=== PATIENT | female | born 1990 | race Caucasian/White ===

== ENCOUNTER 2021-04-01 21:05 | Outpatient (CLI) | payer MEDICAID, SELFPAY ==
[2021-04-01 21:34] VITALS: PULSE 113; O2SAT 94
[2021-04-01 21:35] VITALS: BP 165/91; PULSE 118
[2021-04-01 21:39] VITALS: PULSE 126; O2SAT 97
[2021-04-01 21:44] VITALS: PULSE 120; O2SAT 96
[2021-04-01 22:21] LABS: Actim Prom Positive
[2021-04-01 22:26] VITALS: BP 146/102; PULSE 115
[2021-04-01 22:58] LABS: Basophils % 0.3 %; Eosinophils % 0.1 %; Hematocrit 40.1 % (37.0-47.0); Hemoglobin 13.4 g/dL (11.5-15.3); Lymphocytes % 21.2 %; Mean Corpuscular HGB Conc 33.4 g/dL (30.0-36.0); Mean Corpuscular Hemoglobin 32.3 pg (28.0-34.0); Mean Corpuscular Volume 96.6 fl (81-99); Mean Platelet Volume 11.5 fL (7.4-10.4); Monocytes # 0.7 10^3/uL (0.2-0.9); Monocytes % 7.9 %; Neutrophils # 6.49 10^3/uL (1.8-7.7); Neutrophils % 69.6 %; Nucleated Red Blood Cells % 0 %; Platelet Count 274 10^3/cmm (130-400); Red Blood Count 4.15 10^6/uL (4.1-5.3); Red Cell Distribution Width 12.6 % (12.1-15.1); White Blood Count 9.3 10^3/uL (4.0-10.0)
--- NOTE | 2021-04-01 22:59 | ANES.PREANE2 ---
Pre-Anesthetic Assessment Pre-Anesthetic Assessment: Height/Weight: Pulse BP Pulse Ox 115 H 146/102 96 04/01/21 22:26 04/01/21 22:26 04/01/21 21:44 Preop Diagnosis: breech, in labor Proposed Procedure: Was Beta Scot taken within 24 hours: N/A Was Clonidine taken within 24 hours: N/A Last intake: 1900 thanksgiving dinner Exam: Pre-Anes Outpt Exam: alert, oriented x 3, clear to auscultation bilaterally and regular rate & rhythm Airway: Submandibular: WNL Cervical ROM: WNL MP: 2 History/ROS: No significant history except as noted and No significant complaints Pulmonary: Pulmonary: None reported CV/HEM: CV/HEM: None reported : : None reported Hepatic: Hepatic: None reported GI: GI: None reported Metabolic: Metabolic: Morbid obesity Musc/skel: Musc/skel: None reported Neuropsych: Neuropsych: None reported Anesthetic Plan: ASA status: 3 Anesthesia: Anesthesia Evaluation and Regional (specify below) Risk of > 500 ml blood loss (7ml/kg in children): No Data Anesthesia CBC & Chem 7: 04/01/21 22:40 Other Labs: Laboratory Results - last 48 hr 04/01/21 04/01/21 21:54 22:40 WBC 9.3 RBC 4.15 Hgb 13.4 Hct 40.1 MCV 96.6 MCH 32.3 MCHC 33.4 RDW 12.6 Plt Count 274 MPV 11.5 H Neut % (Auto) 69.6 Lymph % (Auto) 21.2 Harlan % (Auto) 7.9 Eos % (Auto) 0.1 Baso % (Auto) 0.3 Neut # (Auto) 6.49 Lymph # (Auto) 2.0 Harlan # (Auto) 0.7 Eos # (Auto) 0.0 Baso # (Auto) 0.0 Nucleated RBC % (auto) 0 Nucleated RBCs # 0.0 Insulin-like GF I Positive Cardiac Studies: No Data to Display
[2021-04-01] MEDS: citric acid-sodium citrate 30 mL UDC PO (23:09)
[2021-04-01] MEDS: famotidine 20 mg/2 mL INJ IVP (23:09)
[2021-04-01] MEDS: metoclopramide 5 mg/mL SDV 2 mL 10 MG IVP (23:09)
--- NOTE | 2021-04-01 23:13 | P.HP_ITS ---
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 Rupture membranes were confirmed after arriving at the hospital. She was also noted to be in breech position. That was a confirmed with a bedside ultrasound. As result we are going to proceed with a lower transverse section. Review of Systems General: Reports: 10 or more systems reviewed and unremarkable except in HPI and below Const: Reports: fatigue; Denies: fever(s) Eyes: Denies: change in vision Card: Denies: chest pain GI: Reports: heartburn Musc: Reports: back pain Alfredo/Lymph: Denies: easy bruising Medications/Allergies Home Medications Medication Instructions Recorded Confirmed Last Taken Type docusate sodium 100 mg PO BID #14 cap 04/04/21 04/08/21 Unknown Rx hydrocodone-acetaminophen 1 - 2 tab PO Q4H PRN #20 tab 04/04/21 04/08/21 Unknown Rx amoxicillin-pot clavulanate 1 tab PO BID 10 Days #20 tab 04/08/21 Unknown Rx famotidine 20 mg PO BID 04/08/21 04/08/21 Unknown History ibuprofen 800 mg PO TID PRN 04/08/21 04/08/21 Unknown History polyethylene glycol 3350 17 g PO DAILY PRN 04/08/21 04/08/21 Unknown History Allergies Allergy/AdvReac Type Severity Reaction Status Date / Time No Known Allergies Allergy Verified 04/07/21 21:36 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 PFSH: Medical History (Updated 04/08/21 @ 10:14 by Dennis Stein MD) Allergic rhinitis Vitals/I&O/Wt Last Vital Signs Pulse 115 H 04/01/21 22:26 BP 146/102 04/01/21 22:26 Pulse Ox 96 04/01/21 21:44 Physical Exam Const: COMMON NORMALS: patient oriented x3 and alert HENMT: COMMON NORMALS: moist oral mucous membranes HEAD & SCALP: normal to inspection Chest: COMMONS NORMALS: normal inspection of the chest Resp: COMMON NORMALS: clear to auscultation bilaterally AUSCULTATION: clear to auscultation bilaterally Cardio: COMMON NORMALS: regular rate and regular rhythm RATE: regular rate RHYTHM: regular rhythm GI: INSPECTION: Yes normal to inspection and Yes other (Gravid) Extremity: COMMON NORMALS: normal to inspection GENERAL: Yes edema (Trace) Neuro: COMMON NORMALS: patient oriented x3, moves all extremities and no sensory deficits noted SENSORIUM/ORIENTATION: Yes alert Psych: COMMON NORMALS: mental status grossly normal Skin: COMMON NORMALS: no rashes or lesions noted GENERAL SKIN EXAM: no rashes or lesions noted Data : 04/01/21 22:40 A&P Assessment and plan (1) 39 weeks gestation of : Status: Acute (2) Spontaneous rupture of membranes: Status: Acute (3) Breech presentation of fetus: Due to the patient's breech presentation, we will proceed with a lower transverse section. I have discussed with the patient's the risks of the procedure. We discussed the risks of bleeding, infection, and damage to intra-abdominal organs. She understands that due to her large pannus that her risk of complications and infection is increased. Status: Acute Attestations Medical Necessity Statement*: Routine and post care. Coding Level of Care Code Acute Body And Frame Man for [facility] Fwd Exam Comprehensive Diagnoses 39 weeks gestation of Z3A.39 Spontaneous rupture of membranes Breech presentation of fetus O32.1XX0
--- NOTE | 2021-04-02 01:19 | PM.OP ---
Operative Report Date of procedure: April 02, 2021 Pre-op Diagnosis: breech, in labor Post-op diagnosis: same Procedure Done: Lower transverse section Specimens removed/disposition: 1. Male with a weight of 8 pounds 3 ounces and Apgars of 7 and 9 2. Placenta with a three-vessel cord delivered intact Pathology: none sent Surgeon: Dennis Stein Anesthesia: Other (Spinal) Estimated blood loss (mL): 800 Complications: None Condition: stable Disposition: floor (OB) Brief History: Please see history and physical Procedure: The patient was brought back to the operating room where she was prepped and draped in usual sterile fashion. Anesthesia was found to be adequate. A lower transverse skin incision was then made with a #10 blade. I then dissected down to the underlying subcutaneous tissue until arriving at the prerectal fascia. The fascia was then nicked with the scalpel bilaterally. The fascial incisions were then carried laterally with Bah scissors. Attention was then turned to the superior aspect of the incision which was grasped with kochers and tented up away from the underlying rectus abdominis muscles. The muscles were then dissected away from the fascia manually, and later with Bah scissors. Attention was then turned to the inferior aspect of the incision, and the fascia was dissected away from the underlying muscle in similar fashion. The rectus abdominis muscles were then spread manually. The peritoneum was entered manually. Excellent visualization of the uterus was noted. A lower transverse uterine incision was then made with a #10 blade. Upon arriving at the intrauterine cavity, the uterine incision was then extended manually. The was noted to be in vertex position. The baby was delivered without difficulty. After delivery of the head, the mouth and nose were suctioned at the site of the incision. There was no meconium. There was no nuchal cord. The remainder of the body was then delivered and placed on the abdomen. The cord was cut and clamped. The baby was then handed to the waiting nurse. The placenta was removed intact. The uterus was externalized. The intrauterine cavity was cleansed of any remaining debris. The uterine incision was reapproximated in 2 layers. The first layer was performed with 0 Vicryl in a running locked stitch. The second layer was an imbricating stitch also using 0 Vicryl. The uterus was replaced into the abdomen. The peritoneum was then irrigated with warm saline. I reexamined the uterine incision and found it to be hemostatic. The fascia was then reapproximated using 0 Vicryl in running stitch. The subcutaneous tissue was then reapproximated using 0 Vicryl in a running stitch. The skin was reapproximated with a running subcuticular stitch with 4-0 Vicryl on a Jordy needle. Steri-Strips were placed. A sterile dressing was placed. All counts were correct x2. Both the mother and baby were in stable condition. Associated Problem List Diagnoses (1) Breech presentation of fetus: (2) Spontaneous rupture of membranes: (3) 39 weeks gestation of :
== END 2021-04-01 23:59 | disposition home or self-care (01) ==
LOC: OPOB 21:15 → OBGYN 21:15
PROVIDERS: Visit Provider Family Medicine
DX: O32.1XX0 Maternal care for breech presentation, not applicable or unspecified (principal); Z3A.39 39 weeks gestation of pregnancy
CPT/HCPCS: 12345; 84112; 85025; J1200; J2274; J2405; J2765; J3010; J3490

== ENCOUNTER 2021-04-01 22:00 | Inpatient (IN) | payer MEDICAID, OTHER, SELFPAY ==
[2021-04-01 21:05] VITALS: BMI 50.3
[2021-04-02] VITALS (19 sets, daily range): BP systolic 111–156; BP diastolic 70–98; PULSE 96–119; RESP 15–18; TEMP 36.6–37.4; O2SAT 94–98
[2021-04-02] MEDS: dextrose 5%-lactated ringers 1,000 ML 125 ML IV (05:28)
[2021-04-02] MEDS: ketorolac 30 mg/mL INJ IVP (07:01)
[2021-04-02] MEDS: diphenhydrAMINE 50 mg/mL SDV 1mL 25 MG IVP (07:01)
--- NOTE | 2021-04-02 10:09 | ANE.PACU2 ---
Inpatient post-anesthesia follow up: Airway intact: Yes Vital signs: Temperature 99.3 F Pulse Rate 107 Respiratory Rate 16 Blood Pressure 118/78 Pulse Oximetry 95 Oxygen Delivery Me thod Room Air Oxygen Flow Rate Fraction of Inspir ed Oxygen Hydration adequate: Yes Nausea and vomiting: No Pain level: 2 Mental status: Baseline
[2021-04-02] MEDS: prenatal vitamin Capsule 1 CAP PO (10:13)
[2021-04-02] MEDS: docusate sodium 100 mg Capsule PO ×2 (10:13→17:59)
[2021-04-02] MEDS: lanolin oint 7 gm 1 APPLIC TOPICAL (10:17)
[2021-04-02 14:13] LABS: Hematocrit 32.6 % (37.0-47.0); Hemoglobin 11.1 g/dL (11.5-15.3); Mean Corpuscular Hemoglobin 32.7 pg (28.0-34.0); Mean Corpuscular Volume 96.2 fl (81-99); Mean Platelet Volume 11.9 fL (7.4-10.4); Platelet Count 221 10^3/cmm (130-400); Red Blood Count 3.39 10^6/uL (4.1-5.3); Red Cell Distribution Width 12.9 % (12.1-15.1); White Blood Count 11.9 10^3/uL (4.0-10.0)
--- NOTE | 2021-04-02 14:29 | PC.NURSE ---
1400 PT UP TO BATHROOM AFTER CHEATHAM REMOVED, 800 URINE OBTAINED, PERICARE DONE AND INSTRUCTED HER ON IT, CLEANED HER UP REALLY GOOD AND THEN SHE WALKED TO FULL LAPS AROUND FLOOR. DID GREAT. PT THEN BACK TO HER ROOM AND IS SITTING UP IN CHAIR. TOLD HER THAT I WOULD LIKE TO SEE HER UP AND WALKING EVERY HOUR AT LEAST ONE LAP. TOLD HER TO CALL US IF SHE NEEDED ASSISTANCE.
[2021-04-02] MEDS: ibuprofen 800 mg tablet PO ×2 (15:31→20:33)
[2021-04-02] MEDS: hyDROXYzine 25 mg Capsule 50 MG PO (17:59)
[2021-04-02] MEDS: ferrous sulfate EC 325 mg Tablet PO (20:33)
[2021-04-03 03:48] VITALS: BP 122/68; PULSE 115; RESP 17; TEMP 37.2; O2SAT 97
--- NOTE | 2021-04-03 07:06 | PM.OBGYPN ---
COMMERCIAL REAL ESTATE MANAGER Subjective Subjective: Interval history: The patient is doing well The patient is doing well. Her bleeding has been within normal limits. Her pain is well controlled. She is having some difficulty breast-feeding, but the claims support specialist will be assisting her with that today. Vitals/I&O/Wt Last Vital Signs Temp 99.0 F 04/03/21 03:48 Pulse 115 H 04/03/21 03:48 Resp 17 04/03/21 03:48 BP 122/68 04/03/21 03:48 Pulse Ox 97 04/03/21 03:48 04/02/21 04/03/21 04/03/21 22:59 06:59 14:59 Intake Total 600 / 3000 Output Total 1700 / 3600 Balance -1100 / -600 Weight last 48 hrs Weight 284 lb Physical Exam Narrative: EXAM NARRATIVE: She is in no acute distress Lungs are clear auscultation bilaterally Her heart has a regular rate and rhythm Her fundus is below the umbilicus and firm Her dressing is clean, dry and intact Her extremities have trace edema Urinary Catheter Management^: Juan Latex: Cath Placed During This Visit: yes, but has since been removed by the nurse Urinary Catheter Date of Insertion: 04/02/21 Urinary Catheter Time of Insertion: 00:00 Date Urinary Catheter Removed: 04/02/21 Time Urinary Catheter Discontinued: 13:40 Data : 04/02/21 13:35 A&P Assessment and plan (1) Status post : The patient has been doing well. Her pain is well controlled. She has been ambulating. I am hopeful that she will be discharged home tomorrow if all goes well. Status: Acute Attestations Medical Necessity Statement*: Routine post care. Coding Level of Care Code Acute Preforms Laminator for Chg Fwd Diagnoses Status post Z98.891
[2021-04-03] MEDS: prenatal vitamin Capsule 1 CAP PO (07:34)
[2021-04-03] MEDS: acetaminophen 325 mg Tablet 650 MG PO (07:37)
[2021-04-03] MEDS: ferrous sulfate EC 325 mg Tablet PO (07:37)
[2021-04-03 08:35] VITALS: BP 110/70; PULSE 120; RESP 18; O2SAT 98
--- NOTE | 2021-04-03 08:35 | PC.NURSE ---
pt just got done ambulating in hallway
[2021-04-03] MEDS: docusate sodium 100 mg Capsule PO ×2 (12:19→18:08)
[2021-04-03 16:00] VITALS: BP 115/68; PULSE 111; TEMP 37.1
[2021-04-03 22:50] VITALS: BP 131/85; PULSE 104; RESP 16; TEMP 36.7; O2SAT 96
[2021-04-03] MEDS: ibuprofen 800 mg tablet PO (22:50)
[2021-04-04 04:10] VITALS: BP 126/87; PULSE 88; O2SAT 95
--- NOTE | 2021-04-04 07:31 | PM.OBGYDC ---
Discharge Providers RENEWABLE ENERGY TRADER Date of Admission: 04/01/21 22:00 Date of Discharge: 04/04/21 Attending Provider at Admission: Dennis Stein MD Attending Provider at Discharge: Dennis Stein MD Diagnoses at Discharge Discharge Diagnosis (1) Status post : Status: Acute Reason for Visit Reason for Visit: C- section Hospital Course Hospital Course The patient is a 30-year-old 1 female at 39 weeks estimated gestational age who presented to the hospital due to presumed rupture of membranes. She was found to have grossly ruptured membranes. She was also noted to have a footling breech presentation of the . A section was performed. Her postoperative course was unremarkable. Her bleeding was within normal limits. Her pain level is remarkably low. There were no concerns. Initially, she attempted to breast-feed. She has since decided to bottlefeed. Information Peripartum Data: Delivery Method: Physical Exam Narrative: EXAM NARRATIVE: She is in no acute distress Lungs are clear auscultation bilaterally Her heart has a regular rate and rhythm Her fundus is below the umbilicus and firm Her dressing is clean, dry and intact Her extremities have trace edema Urinary Catheter Management^: Juan Latex: Cath Placed During This Visit: yes, but has since been removed by the nurse Reason for Continuing Indwelling Catheter: Perioperative Use in Selected Surgeries Urinary Catheter Date of Insertion: 04/02/21 Urinary Catheter Time of Insertion: 00:00 Date Urinary Catheter Removed: 04/02/21 Time Urinary Catheter Discontinued: 13:40 Discharge Data Vitals: Last Vital Signs Temp 98.0 F 04/03/21 22:50 Pulse 88 04/04/21 04:10 Resp 16 04/03/21 22:50 BP 126/87 04/04/21 04:10 Pulse Ox 95 04/04/21 04:10 Discharge Plan Discharge Patient Disposition: Home Condition: Stable Prescriptions: New ibuprofen 800 mg Tablet 800 mg PO TID Qty: 45 RF: 0 hydrocodone-acetaminophen 5-325 mg Tablet 1 - 2 tab PO Q4H PRN (Reason: Moderate To Severe Pain) Qty: 20 RF: 0 docusate sodium 100 mg Capsule 100 mg PO BID Qty: 14 RF: 0 Discharge Orders: Discharge Order (Routine); Ordered 04/04/21 Ordered By: Dennis Stein Referrals: Dennis Stein MD [Physician] - 04/07/21 Discharge Diet: Usual diet Discharge Activity: Limit activity as instructed Patient Instructions: Opioid Safety Discharge Attestations RENEWABLE ENERGY TRADER Time Spent in Discharge Care*: less than 30 min Coding Level of Care Code Acute Quantitative Manager for Chg Fwd Diagnoses Status post Z98.891
[2021-04-04 10:00] VITALS: BP 125/89; PULSE 130; RESP 18; TEMP 36.5; O2SAT 96
--- NOTE | 2021-04-04 12:23 | PC.NURSE ---
Pt reports her pulse is elevated because she has been up in the room packing for about 30 minutes.
== END 2021-04-04 10:10 | disposition home or self-care (01) | DRG 788 ==
PROVIDERS: Admitting Provider Family Medicine; Visit Provider Family Medicine
PROC: (CPT 59514; principal; 2021-04-01 23:20)
DX: O32.8XX0 Maternal care for other malpresentation of fetus, not applicable or unspecified (principal); Z3A.39 39 weeks gestation of pregnancy; Z37.0 Single live birth
CPT/HCPCS: 12345; 36415; 51702; 59025; 59409; 85027; 99211; J1200; J1885

== ENCOUNTER 2021-04-07 18:11 | Observation (INO) | payer MEDICAID, SELFPAY ==
[2021-04-07 18:15] VITALS: BP 138/102; PULSE 135; RESP 16; TEMP 37.6; O2SAT 97; BMI 48.6
--- NOTE | 2021-04-07 19:57 | W.ED.FEVER ---
Documented by User: LUZ Armstrong 04/07/21 21:14 HPI - Fever General: Chief Complaint: Fever Stated Complaint: Fever, Time Seen by Provider: 04/07/21 19:31 History of Present Illness: HPI Narrative: Patient states that she had chills this afternoon. She did see her primary care provider earlier today and was placed on Lasix due to edema. Patient says she has had no problems with her incision and sent had any vaginal drainage but is having urinary frequency now especially since being placed on Lasix. MD elicited complaint: fever Onset (ago): hour(s) Context: recent procedure Exacerbating factors: nothing Relieving factors: nothing Associated symptoms: Reports chills; Deny abdominal pain, chest pain, extremity pain, headache(s), nasal congestion, nausea or vomiting Review of Systems Narrative: Recent evaluated by OB today. Placed on Lasix also today due to edema. Const: Reports: chills Eyes: Denies: change in vision or blurry vision ENMT: Denies: throat pain or nasal congestion Card: Denies: chest pain or dyspnea on exertion Resp: Denies: dyspnea, productive cough or non-productive cough GI: Denies: abdominal pain, nausea or vomiting Musc: Denies: extremity pain Skin/Breast: Reports: rash Neuro: Denies: headache(s) Psych: Denies: anxiety or depression Alfredo/Lymph: Denies: easy bruising PFS ED PFSH: Medical History (Updated 04/08/21 @ 10:14 by Dennsi Stein MD) Allergic rhinitis Physical Exam Const: COMMON NORMALS: no acute distress, average body habitus and patient oriented x3 HENMT: COMMON NORMALS: normocephalic HEAD & SCALP: normal to inspection and normocephalic FACE & SINUS: normal facial exam Eye: COMMON NORMALS: conjunctivae normal GENERAL EYE: appearance normal, both eyes and all related structures CONJUNCTIVA: Yes conjunctivae normal Neck/C-Spine: COMMON NORMALS: no JVD Chest: COMMONS NORMALS: normal inspection of the chest Resp: COMMON NORMALS: normal respiratory effort and clear to auscultation bilaterally AUSCULTATION: clear to auscultation bilaterally Cardio: COMMON NORMALS: no JVD and regular rhythm RATE: tachycardic RHYTHM: regular rhythm OTHER: 2+ pitting edema up to area below the knee bilaterally. GI: COMMON NORMALS: Normal to inspection, nondistended, normoactive bowel sounds present Extremity: COMMON NORMALS: normal to inspection and full ROM Neuro: COMMON NORMALS: patient oriented x3 Skin: OTHER: Surgical incision clear with no drainage no redness Steri-Strips in place mild tenderness all around the site consistent with postsurgical tenderness. On reexamination about an hour and half in his visit notes that patient does have redness and warmth extending up toward the bellybutton across the abdomen. Incision still without drainage or any significant redness. Course Vital Signs: Vital signs: Vital Signs Temperature 98.7 F 04/08/21 13:34 Pulse Rate 100 04/08/21 13:34 Respiratory Rate 18 04/08/21 13:34 Blood Pressure 121/88 04/08/21 13:34 Pulse Oximetry 98 04/08/21 13:34 MDM - Fever MDM Narrative: Medical decision making narrative: Patient presented here with chills and fever at home this afternoon. Patient evaluated by OB today and was placed on Lasix due to edema. Presented Dr. Nelson with patient's labs presenting signs symptoms and evaluation. Reevaluated patient about hour and half visit no she had redness extending up toward the bellybutton across abdomen very warm to the touch. Patient still is tachycardic did receive 1 g Rocephin IV antibiotics and was also ordered for clindamycin. Care of patient turned over to Dr. Nelson Lab Data: Labs: Lab Results 04/07/21 04/07/21 04/07/21 19:45 19:45 19:45 WBC 20.1 10^3/uL H 10 ^3/uL (4.0-10.0) RBC 3.76 10^6/uL L 10 ^6/uL (4.1-5.3) Hgb 12.2 g/dL g/dL (11.5-15.3) Hct 37.4 % % (37.0-47.0) MCV 99.5 fl H fl (81-99) MCH 32.4 pg pg (28.0-34.0) MCHC 32.6 g/dL g/dL (30.0-36.0) RDW 12.6 % % (12.1-15.1) Plt Count 385 10^3/cmm 10^3 /cmm (130-400) MPV 11.1 fL H fL (7.4-10.4) Neut % (Auto) 86.8 % % Lymph % (Auto) 7.8 % % Blanco % (Auto) 3.5 % % Eos % (Auto) 0.1 % % Baso % (Auto) 0.4 % % Neut # (Auto) 17.44 10^3/uL H 1 0^3/uL (1.8-7.7) Lymph # (Auto) 1.6 10^3/uL 10^3/ uL (0.8-4.8) Blanco # (Auto) 0.7 10^3/uL 10^3/ uL (0.2-0.9) Eos # (Auto) 0.0 10^3/uL 10^3/ uL (0.0-0.8) Baso # (Auto) 0.1 10^3/uL 10^3/ uL (0.0-0.1) Nucleated RBC % (a uto) 0.2 % % Nucleated RBCs # 0.0 /100WBC /100W BC Sodium 138 mmol/L mmol/L (136-145) Potassium 3.3 mmol/L L mmol /L (3.5-5.1) Chloride 100 mmol/L mmol/L (98-107) Carbon Dioxide 24 mmol/L mmol/L (22-29) Anion Gap 17.3 (5-19) BUN 6 mg/dL mg/dL (6-20) Creatinine 0.6 mg/dL mg/dL (0.5-0.9) GFR Calculation 118.2 mL/min mL/m in (90-130) Glucose 101 mg/dL mg/dL (65-115) Calculated Osmolal ity 284 mOsm/kg L mOs m/kg (285-295) Lactate 1.2 mmol/L mmol/L (0.5-2.2) Calcium 9.0 mg/dL mg/dL (8.5-10.5) Total Bilirubin 0.2 mg/dL mg/dL (0.15-1.2) AST 16 U/L U/L (0-32) ALT 101 U/L H U/L (0-33) Alkaline Phosphata se 105 IU/L IU/L (35-105) Total Protein 6.4 g/dL L g/dL (6.6-8.7) Albumin 2.9 g/dL L g/dL (3.5-5.2) Globulin 3.5 g/dL g/dL (1.3-4.6) Urine Color Urine Appearance Urine pH Ur Specific Gravit y Urine Protein Urine Glucose (UA) Urine Ketones Urine Blood Urine Nitrate Urine Bilirubin Urine Urobilinogen Ur Leukocyte Kaylen ase Urine RBC Urine WBC Ur Squamous Epith Cells Amorphous Sediment Urine Bacteria 04/07/21 19:45 WBC RBC Hgb Hct MCV MCH MCHC RDW Plt Count MPV Neut % (Auto) Lymph % (Auto) Blanco % (Auto) Eos % (Auto) Baso % (Auto) Neut # (Auto) Lymph # (Auto) Blanco # (Auto) Eos # (Auto) Baso # (Auto) Nucleated RBC % (a uto) Nucleated RBCs # Sodium Potassium Chloride Carbon Dioxide Anion Gap BUN Creatinine GFR Calculation Glucose Calculated Osmolal ity Lactate Calcium Total Bilirubin AST ALT Alkaline Phosphata se Total Protein Albumin Globulin Urine Color Yellow (Yellow) Urine Appearance Sl hazy (CLEAR) Urine pH 8 H (5-7) Ur Specific Gravit y 1.010 (1.005-1.030) Urine Protein Neg (Negative) Urine Glucose (UA) Norm (Normal) Urine Ketones Negative (Negative) Urine Blood 3+ H (Negative) Urine Nitrate Negative (Negative) Urine Bilirubin Neg (Negative) Urine Urobilinogen Norm mg/dL mg/dL (Negative) Ur Leukocyte Kaylen ase 2+ H (Negative) Urine RBC 0-4 /hpf H /hpf (0-2) Urine WBC 15-25 /hpf H /hpf (0-5) Ur Squamous Epith Cells 10-15 /hpf H /hpf (0-5) Amorphous Sediment Not Reportable Urine Bacteria 1+ /hpf H /hpf (NONE) Discharge Plan Discharge Patient Disposition: Admitted As Inpatient Admit Provider: Dennis Stein Condition: Stable Discharge Diet: Usual diet Discharge Activity: Limit activity as instructed Coding Level of Care Code ED Information Security Director for g Fwd Exam Comprehensive Documented by User: Federico Nelson MD 04/11/21 21:30 HPI - Fever General: Chief Complaint: Fever Stated Complaint: Fever, Time Seen by Provider: 04/07/21 19:31 [facility] ED PFSH: Medical History (Updated 04/08/21 @ 10:14 by Dennis Stein MD) Allergic rhinitis Course Vital Signs: Vital signs: Vital Signs Temperature 98.7 F 04/08/21 13:34 Pulse Rate 100 04/08/21 13:34 Respiratory Rate 18 04/08/21 13:34 Blood Pressure 121/88 04/08/21 13:34 Pulse Oximetry 98 04/08/21 13:34 MDM - Fever MDM Narrative: Medical decision making narrative: Patient care discussed with Khai Rubio PIPE INSTALLER. I personally reevaluated patient and reperformed orozco portions of E/M and agree as documented above. I reviewed labs. I discussed case with the patient's performing surgeon and patient requires inpatient treatment given leukocytosis, initial tachycardia, and physical exam findings. Antibiotics ordered. At request of admitting physician CT scan ordered and pending at time of admission. Federico Nelson MD Emergency Medicine Lab Data: Labs: Lab Results 04/07/21 04/07/21 04/07/21 19:45 19:45 19:45 WBC 20.1 10^3/uL H 10 ^3/uL (4.0-10.0) RBC 3.76 10^6/uL L 10 ^6/uL (4.1-5.3) Hgb 12.2 g/dL g/dL (11.5-15.3) Hct 37.4 % % (37.0-47.0) MCV 99.5 fl H fl (81-99) MCH 32.4 pg pg (28.0-34.0) MCHC 32.6 g/dL g/dL (30.0-36.0) RDW 12.6 % % (12.1-15.1) Plt Count 385 10^3/cmm 10^3 /cmm (130-400) MPV 11.1 fL H fL (7.4-10.4) Neut % (Auto) 86.8 % % Lymph % (Auto) 7.8 % % Blanco % (Auto) 3.5 % % Eos % (Auto) 0.1 % % Baso % (Auto) 0.4 % % Neut # (Auto) 17.44 10^3/uL H 1 0^3/uL (1.8-7.7) Lymph # (Auto) 1.6 10^3/uL 10^3/ uL (0.8-4.8) Blanco # (Auto) 0.7 10^3/uL 10^3/ uL (0.2-0.9) Eos # (Auto) 0.0 10^3/uL 10^3/ uL (0.0-0.8) Baso # (Auto) 0.1 10^3/uL 10^3/ uL (0.0-0.1) Nucleated RBC % (a uto) 0.2 % % Nucleated RBCs # 0.0 /100WBC /100W BC Sodium 138 mmol/L mmol/L (136-145) Potassium 3.3 mmol/L L mmol /L (3.5-5.1) Chloride 100 mmol/L mmol/L (98-107) Carbon Dioxide 24 mmol/L mmol/L (22-29) Anion Gap 17.3 (5-19) BUN 6 mg/dL mg/dL (6-20) Creatinine 0.6 mg/dL mg/dL (0.5-0.9) GFR Calculation 118.2 mL/min mL/m in (90-130) Glucose 101 mg/dL mg/dL (65-115) Calculated Osmolal ity 284 mOsm/kg L mOs m/kg (285-295) Lactate 1.2 mmol/L mmol/L (0.5-2.2) Calcium 9.0 mg/dL mg/dL (8.5-10.5) Total Bilirubin 0.2 mg/dL mg/dL (0.15-1.2) AST 16 U/L U/L (0-32) ALT 101 U/L H U/L (0-33) Alkaline Phosphata se 105 IU/L IU/L (35-105) Total Protein 6.4 g/dL L g/dL (6.6-8.7) Albumin 2.9 g/dL L g/dL (3.5-5.2) Globulin 3.5 g/dL g/dL (1.3-4.6) Urine Color Urine Appearance Urine pH Ur Specific Gravit y Urine Protein Urine Glucose (UA) Urine Ketones Urine Blood Urine Nitrate Urine Bilirubin Urine Urobilinogen Ur Leukocyte Kaylen ase Urine RBC Urine WBC Ur Squamous Epith Cells Amorphous Sediment Urine Bacteria 04/07/21 19:45 WBC RBC Hgb Hct MCV MCH MCHC RDW Plt Count MPV Neut % (Auto) Lymph % (Auto) Blanco % (Auto) Eos % (Auto) Baso % (Auto) Neut # (Auto) Lymph # (Auto) Blanco # (Auto) Eos # (Auto) Baso # (Auto) Nucleated RBC % (a uto) Nucleated RBCs # Sodium Potassium Chloride Carbon Dioxide Anion Gap BUN Creatinine GFR Calculation Glucose Calculated Osmolal ity Lactate Calcium Total Bilirubin AST ALT Alkaline Phosphata se Total Protein Albumin Globulin Urine Color Yellow (Yellow) Urine Appearance Sl hazy (CLEAR) Urine pH 8 H (5-7) Ur Specific Gravit y 1.010 (1.005-1.030) Urine Protein Neg (Negative) Urine Glucose (UA) Norm (Normal) Urine Ketones Negative (Negative) Urine Blood 3+ H (Negative) Urine Nitrate Negative (Negative) Urine Bilirubin Neg (Negative) Urine Urobilinogen Norm mg/dL mg/dL (Negative) Ur Leukocyte Kaylen ase 2+ H (Negative) Urine RBC 0-4 /hpf H /hpf (0-2) Urine WBC 15-25 /hpf H /hpf (0-5) Ur Squamous Epith Cells 10-15 /hpf H /hpf (0-5) Amorphous Sediment Not Reportable Urine Bacteria 1+ /hpf H /hpf (NONE) Discharge Plan Discharge Patient Disposition: Admitted As Inpatient Admit Provider: Dennis Stein Condition: Stable Discharge Diet: Usual diet Discharge Activity: Limit activity as instructed Coding Level of Care Code ED Information Security Director for [facility] Fwd Exam Comprehensive
[2021-04-07 20:01] LABS: Basophils # 0.1 10^3/uL (0.0-0.1); Basophils % 0.4 %; Eosinophils % 0.1 %; Hematocrit 37.4 % (37.0-47.0); Hemoglobin 12.2 g/dL (11.5-15.3); Lymphocytes # 1.6 10^3/uL (0.8-4.8); Lymphocytes % 7.8 %; Mean Corpuscular HGB Conc 32.6 g/dL (30.0-36.0); Mean Corpuscular Hemoglobin 32.4 pg (28.0-34.0); Mean Corpuscular Volume 99.5 fl (81-99); Mean Platelet Volume 11.1 fL (7.4-10.4); Monocytes # 0.7 10^3/uL (0.2-0.9); Monocytes % 3.5 %; Neutrophils # 17.44 10^3/uL (1.8-7.7); Neutrophils % 86.8 %; Nucleated Red Blood Cells % 0.2 %; Platelet Count 385 10^3/cmm (130-400); Red Blood Count 3.76 10^6/uL (4.1-5.3); Red Cell Distribution Width 12.6 % (12.1-15.1); White Blood Count 20.1 10^3/uL (4.0-10.0)
[2021-04-07] MEDS: sodium chloride 0.9% 1,000 ML 75 ML IV (20:13)
[2021-04-07 20:29] LABS: Alanine Aminotransferase 101 U/L (0-33); Albumin Level 2.9 g/dL (3.5-5.2); Alkaline Phosphatase 105 IU/L (35-105); Anion Gap 17.3 (5-19); Aspartate Amino Transferase 16 U/L (0-32); Blood Urea Nitrogen 6 mg/dL (6-20); Carbon Dioxide 24 mmol/L (22-29); Chloride 100 mmol/L (98-107); Globulin 3.5 g/dL (1.3-4.6); Glomerular Filtration Rate 118.2 mL/min (90-130); Glucose 101 mg/dL (65-115); Osmolality Calculated 284 mOsm/kg (285-295); Potassium 3.3 mmol/L (3.5-5.1); Sodium 138 mmol/L (136-145); Total Bilirubin 0.2 mg/dL (0.15-1.2); Total Protein 6.4 g/dL (6.6-8.7); Urine Appearance SL Hazy (CLEAR); Urine Color Yellow (Yellow)
[2021-04-07 20:30] LABS: Add Urine Culture? No; Add Urine Microscopic? YES; Bacteria Urine 1+ /hpf; Bilirubin Urine Neg (Negative); Blood Urine 3+ (Negative); Glucose Urine UA Norm (Normal); Ketones Urine Negative (Negative); Lactate (Lactic Acid level) 1.2 mmol/L (0.5-2.2); Leukocyte Esterase Urine 2+ (Negative); Nitrate Urine Negative (Negative); Protein Urine Neg (Negative); RBC Urine 0-4 /hpf (0-2); Urobilinogen Urine Norm (Negative); WBC Urine 15-25 /hpf (0-5); pH Urine 8 (5-7)
[2021-04-07] MEDS: cefTRIAXone 1,000 MG in sodium chloride 0.9% (plus) 50 ML 100 MG IV (20:42)
[2021-04-07] MEDS: potassium chloride ER 20 mEq Tablet PO (20:42)
[2021-04-07 20:55] VITALS: BP 137/81; PULSE 120; RESP 18; TEMP 37.4; O2SAT 95
[2021-04-07] MEDS: clindamycin 600 MG/50 ML PREMIX 100 MG IV (21:35)
[2021-04-07 21:41] VITALS: BP 136/88; PULSE 86; RESP 18; TEMP 38; O2SAT 96
--- NOTE | 2021-04-07 21:43 | CTR_ITS ---
PROCEDURE INFORMATION: Exam: CT Abdomen And Pelvis With Contrast Exam date and time: 04/07/2021 9:43 PM Age: 30 years old Clinical indication: Other: Cellulitis. ; Prior surgery; Surgery date: 3-7 days post-operative; Surgery type: Csection on 04/02/2021. ; Patient HX: C/O pain with cellulitis to lower abdominal pannus. ; Additional info: Post operative sirs, abdominal wall cellulitis, ? deep infect TECHNIQUE: Imaging protocol: Computed tomography of the abdomen and pelvis with contrast. Radiation optimization: All CT scans at this facility use at least one of these dose optimization techniques: automated exposure control; mA and/or kV adjustment per patient size (includes targeted exams where dose is matched to clinical indication); or iterative reconstruction. Contrast material: OMNI 300; Contrast volume: 95 ml; Contrast route: INTRAVENOUS (IV); COMPARISON: US OB >= 14 weeks fetus [id number] 11/09/2020 4:15 PM RADIATION DOSE METRICS: Total DLP (mGy-cm): 1875.21 FINDINGS: Liver: A couple subcentimeter low-attenuation lesions adjacent to the intrahepatic IVC, likely small cysts or hemangiomas. Gallbladder and bile ducts: Normal. No calcified stones. No ductal dilation. Pancreas: Normal. No ductal dilation. Spleen: Normal. No splenomegaly. Adrenal glands: Normal. No mass. Kidneys and ureters: 2 cm cyst along the posteromedial cortex of the upper pole of the right kidney. No hydronephrosis. Stomach and bowel: Unremarkable. No obstruction. No mucosal thickening. Appendix: No evidence of appendicitis. Intraperitoneal space: Unremarkable. No free air. No significant fluid collection. Vasculature: Unremarkable. No abdominal aortic aneurysm. Lymph nodes: Unremarkable. No enlarged lymph nodes. Urinary bladder: Unremarkable as visualized. Reproductive: Enlarged appearance of the uterus, likely secondary to recent and . Bones/joints: No acute fracture. Soft tissues: Skin thickening and extensive subcutaneous emphysema centered within the lower abdominal wall. No definable fluid collection/abscess or subcutaneous emphysema. CT/CT abdomen pelvis w con* [id number] IMPRESSION: Cellulitis centered within the lower abdominal wall. No definable abscess or subcutaneous emphysema. No intra-abdominal extension. COMMENTS: Consistent with the [employer]'s Incidental Findings Committee white paper (J Am Kathleen Radiol 2018): Any incidental renal lesion less than 1 cm or classified as too small to characterize, or any incidental cystic renal lesion characterized as simple-appearing, is likely benign. No follow-up imaging is recommended for these lesions per consensus recommendations based on imaging criteria. Radiation Dose CTDIVOL = (mGy): DLP = 1875.21 (mGy-cm)
[2021-04-07] MEDS: iohexol 300 mg/mL 100 mL Btl IV (21:59)
[2021-04-07 22:41] VITALS: BMI 48.6
[2021-04-07] MEDS: acetaminophen 500 mg Tablet 1000 MG PO (23:53)
[2021-04-08] VITALS: BP 133/87; PULSE 139; RESP 19; TEMP 38.2; O2SAT 97
[2021-04-08 04:00] VITALS: BP 134/66; PULSE 94; RESP 19; TEMP 37.1; O2SAT 97
[2021-04-08] MEDS: clindamycin 600 MG/50 ML PREMIX 100 MG IV (04:21)
[2021-04-08 07:31] LABS: Basophils # 0.1 10^3/uL (0.0-0.1); Basophils % 0.4 %; Eosinophils % 0.2 %; Hematocrit 33.5 % (37.0-47.0); Hemoglobin 10.6 g/dL (11.5-15.3); Lymphocytes # 1.4 10^3/uL (0.8-4.8); Mean Corpuscular HGB Conc 31.6 g/dL (30.0-36.0); Mean Corpuscular Hemoglobin 32.6 pg (28.0-34.0); Mean Corpuscular Volume 103.1 fl (81-99); Mean Platelet Volume 11.1 fL (7.4-10.4); Monocytes # 0.7 10^3/uL (0.2-0.9); Monocytes % 5.7 %; Neutrophils # 9.25 10^3/uL (1.8-7.7); Neutrophils % 80.5 %; Nucleated Red Blood Cells % 0 %; Platelet Count 304 10^3/cmm (130-400); Red Blood Count 3.25 10^6/uL (4.1-5.3); Red Cell Distribution Width 12.8 % (12.1-15.1); White Blood Count 11.5 10^3/uL (4.0-10.0)
[2021-04-08 08:00] VITALS: BP 121/88; PULSE 100; RESP 18; TEMP 37.1; O2SAT 98
[2021-04-08] MEDS: sodium chloride 0.9% 1,000 ML 75 ML IV (08:53)
--- NOTE | 2021-04-08 09:54 | PM.SDS ---
Short Stay Summary Providers Date of Admit/Discharge: 04/08/21 Attending Provider: Dennis Stein MD Primary Care Provider: Dennis Stein MD Chief Complaint: Fever, HPI History of Present Illness Kriss Patel is a 30 year old female who presented to the emergency room with a complaint of fever and not feeling well. She had had a on the due to spontaneous rupture of membranes and a breech presentation of her infant. The was unremarkable. Her hospital stay was also unremarkable. She had had no complications and no concerns up to yesterday when she saw me in my office. At that time she stated that she felt amazing and felt like she could run a marathon. Her only concern was edema in her lower extremities and in her pannus. She was given Lasix. Later on in the day, she began feeling poorly, and spiked a fever. As a result she went to the ER where she once again was noted to have a fever of 100.4. Her heart rate was also elevated with a white blood count of 20.1 with 86% neutrophils. There was no obvious infection. And her abdominal exam was unremarkable. But given her white blood count, her fever, her tachycardia, and her sudden shift and how she was feeling, we elected to put her in the hospital to observe her for possible infection. Review of Systems General: Reports: 10 or more systems reviewed and unremarkable except in HPI and below Const: Reports: fever(s) and chills; Denies: change in appetite Eyes: Denies: change in vision Card: Reports: edema (2+ pitting edema in lower extremities and in pannus.); Denies: chest pain GI: Reports: other (Passing gas); Denies: nausea or constipation Skin/Breast: Reports: other (Incision has been clean dry and intact. She has had no drainage.) Alfredo/Lymph: Denies: easy bruising Home Meds/Allergies Home Medications and Allergies Home Medications Medication Instructions Recorded Confirmed Type famotidine 20 mg PO BID 04/08/21 04/08/21 History ibuprofen 800 mg PO TID PRN 04/08/21 04/08/21 History polyethylene glycol 3350 17 g PO DAILY PRN 04/08/21 04/08/21 History Allergies Allergy/AdvReac Type Severity Reaction Status Date / Time No Known Allergies Allergy Verified 04/07/21 21:36 PFSH Acute PFSH: Medical History (Updated 04/08/21 @ 10:14 by Dennis Stein MD) Allergic rhinitis Vitals/I&O/Wt Last Vital Signs Temp 98.7 F 04/08/21 08:00 Pulse 100 04/08/21 08:00 Resp 18 04/08/21 08:00 BP 121/88 04/08/21 08:00 Pulse Ox 98 04/08/21 08:00 04/07/21 04/08/21 04/08/21 22:59 06:59 14:59 Intake Total 100 / 100 165.5 / 265.5 1010 / 1010 Balance 100 / 100 165.5 / 265.5 1010 / 1010 Weight last 48 hrs Weight 275 lb Weight 275 lb Physical Exam Const: COMMON NORMALS: patient oriented x3 and alert HENMT: COMMON NORMALS: moist oral mucous membranes HEAD & SCALP: normal to inspection Chest: COMMONS NORMALS: normal inspection of the chest Resp: COMMON NORMALS: clear to auscultation bilaterally AUSCULTATION: clear to auscultation bilaterally Cardio: COMMON NORMALS: regular rate and regular rhythm RATE: regular rate RHYTHM: regular rhythm GI: COMMON NORMALS: Soft to palpation INSPECTION: Yes normal to inspection AUSCULTATION: Yes normoactive bowel sounds PALPATION: Yes Soft to palpation, No Tenderness to palpation present (GI) and No Guarding due to palpation present (GI) Extremity: COMMON NORMALS: normal to inspection GENERAL: Yes edema (2+ edema in lower extremities up to knees. There is 1+ edema in pannus.) Neuro: COMMON NORMALS: patient oriented x3, moves all extremities and no sensory deficits noted SENSORIUM/ORIENTATION: Yes alert Psych: COMMON NORMALS: mental status grossly normal Skin: COMMON NORMALS: no rashes or lesions noted NARRATIVE SKIN EXAM: Incision is clean dry and intact with Steri-Strips still in place. There is no erythema. It is nontender to palpation. Her pannus is also nontender to palpation. The pannus is nonerythematous. GENERAL SKIN EXAM: no rashes or lesions noted Hospital Course Hospital Course After her evaluation in the ER, the patient was admitted [facility] floor. She was given Rocephin, and clindamycin in the ER. I also added gentamicin. She was placed on sips and chips. Her condition rapidly improved. This morning during my evaluation, she says she feels great. She has no pain. She says she feels much better than she felt yesterday. She is hungry. SSS Data Data Completed and Pending: Completed Studies During Hospitalization Category Date Time Status CT abdomen pelvis w con* [id number] Urge nt Cat Scan 04/07/21 21:43 Completed Pending at discharge Category Date Time Status Blood Culture Sta t Lab 04/07/21 19:45 Results Addt'l Data from Hospital Stay: The CT scan of the abdomen states that there is cellulitis in the abdominal wall. I suspect that is an overcall. While her pannus does have edema, as she has had since her early third trimester of her , there is no erythema, it is nontender to palpation, and it is actually less edematous now than it has been for weeks. Diagnoses at Discharge Discharge Diagnosis (1) Trichomonas vaginalis infection: Status: Acute (2) Postoperative fever: Status: Acute Permanent problem details: While it is not clear what caused the patient's postoperative fever, it is still possible that it was caused by a postoperative infection. At this time there is no sign of infection or tenderness. Her incision has done remarkably well given the body habitus of the patient. The edema in her pannus has improved since late in her . She says she feels great this morning. Having said that, her white blood count was elevated, and she was tachycardic. Her body habitus also makes her high risk of postoperative infection as well. As result we will send her home on antibiotics to cover her in case there is an infection that has not yet declared itself. We will keep a close eye on her over the next couple weeks Discharge Plan Discharge Patient Disposition: Home Condition: Stable Prescriptions: New amoxicillin-pot clavulanate 875-125 mg tablet 1 tab PO BID 10 Days Qty: 20 RF: 0 Continued hydrocodone-acetaminophen 5-325 mg Tablet 1 - 2 tab PO Q4H PRN (Reason: Moderate To Severe Pain) Qty: 20 RF: 0 docusate sodium 100 mg Capsule 100 mg PO BID Qty: 14 RF: 0 famotidine 20 mg tablet 20 mg PO BID RF: 0 polyethylene glycol 3350 17 gram/dose powder 17 g PO DAILY PRN (Reason: constipation) RF: 0 ibuprofen 800 mg tablet 800 mg PO TID PRN (Reason: Pain) RF: 0 Discharge Orders: Discharge Order (Routine); Ordered 04/08/21 Ordered By: Dennis Stein Referrals: Dennis Stein MD [Primary Care Provider] - 04/10/21 7:45 am (Contact office to notify them of appointment time.) Discharge Diet: Usual diet Discharge Activity: Limit activity as instructed Patient Instructions: Opioid Safety Attestations Medical Necessity Statement*: The patient will be discharged home today Time Spent in Patient Care*: less than 30 min Quality Metrics Clinical Quality Measures: During this hospital stay, did patient experience: None Coding Level of Care Code Acute Waste [employer]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
--- NOTE | 2021-04-08 13:33 | PC.NURSE ---
patient verbalized understanding of discharge instructions, home medications, and follow up appointments.
[2021-04-08 13:34] VITALS: BP 121/88; PULSE 100; RESP 18; TEMP 37.1; O2SAT 98
== END 2021-04-08 11:35 | disposition home or self-care (01) ==
LOC: ER 21:51 → MEDSURG 22:13
PROVIDERS: Admitting Provider Family Medicine; Emergency Provider Nurse Practitioner Family; PCP Family Medicine; Visit Provider Family Medicine
DX: A59.9 Trichomoniasis, unspecified (principal); R50.82 Postprocedural fever
CPT/HCPCS: 12345; 36415; 74177; 80053; 81001; 83605; 85025; 87040; G0378; J0696; J1580; J3490; J7030; Q9967

== ENCOUNTER → 2022-01-21 16:27 | Outpatient (BNVA) | payer MEDICAID, SELFPAY | PROVIDERS: PCP Family Medicine; Visit Provider Nurse Practitioner | DX: Z20.822 Contact with and (suspected) exposure to COVID-19 (principal) | CPT/HCPCS: 87426 ==

== ENCOUNTER 2022-08-25 16:38 | Emergency (ER) | payer MEDICAID, SELFPAY ==
[2022-08-25 16:46] VITALS: BP 136/83; PULSE 83; TEMP 36.7; O2SAT 97; BMI 49.6
[2022-08-25 19:41] VITALS: PULSE 71; RESP 18; O2SAT 95
[2022-08-25] MEDS: fluorescein 1 mg Strip EYE-RIGHT (19:52)
[2022-08-25] MEDS: eye irrigation 30 mL Btl EYE-RIGHT (19:52)
--- NOTE | 2022-08-25 20:12 | W.ED.EYEPROB ---
HPI - Eye Problem General: Chief complaint: Eye Problems Stated complaint: Right eye injury/abrasion Time Seen by Provider: 08/25/22 19:43 History of Present Illness: Patient is a 32-year-old female comes to the ED with right eye complaint. Patient states that 2 days ago she was laying in bed and thinks she excellently scratched her right eye. That day patient went and saw her eye doctor and they diagnosed her with an abrasion to the right eye gave her 1 dose of erythromycin eye ointment but did not send her home with any daily doses. Patient says her right eyes just got more red and having purulent type discharge. She rates her pain currently a 4 out of 10. Associated symptoms: Denies fever(s), headache(s), nausea, neck pain or vomiting Review of Systems Const: Denies: fever(s), chills or fatigue Eyes: Reports: eye discharge (Right eye) and eye redness (Right eye); Denies: change in vision or eye discomfort ENMT: Denies: throat pain, odynophagia, nasal discharge or nasal congestion Card: Denies: chest pain, palpitations, edema, swelling of feet/ankles, dyspnea on exertion or orthopnea Resp: Denies: dyspnea, productive cough or non-productive cough GI: Denies: abdominal pain, nausea, vomiting, diarrhea, constipation or hematochezia : Denies: flank pain, dysuria or hematuria Musc: Denies: neck pain, back pain or extremity swelling Skin/Breast: Denies: rash or new lesions Neuro: Denies: headache(s), numbness in extremities or weakness in extremities PFS ED PFSH: Medical History Allergic rhinitis Surgical History No pertinent past surgical history Social History Smoking and tobacco status: never smoked Physical Exam Const: COMMON NORMALS: no acute distress, patient oriented x3 and alert GENERAL APPEARANCE: cooperative HENMT: COMMON NORMALS: normocephalic HEAD & SCALP: normocephalic MOUTH: Normal oral and palatal mucosa present THROAT: posterior oropharynx normal and uvula midline Eye: COMMON NORMALS: Equal, round and reactive pupils present and EOMs intact bilaterally CONJUNCTIVA: Yes conjunctival abnormal positive right conjunctival injection diffuse and discharge purulent PUPIL: Yes Equal, round and reactive pupils present OTHER: Fluorescein dye exam with Brunson lamp showed corneal abrasion on right eye. Neck/C-Spine: COMMON NORMALS: supple GENERAL: Yes normal visual inspection Resp: COMMON NORMALS: normal respiratory effort, No retractions, No use of accessory muscles and clear to auscultation bilaterally AUSCULTATION: clear to auscultation bilaterally Cardio: COMMON NORMALS: regular rate, regular rhythm, S1 normal heart sound present, S2 normal heart sound present, No gallops present (Cardio), No clicks present (Cardio), No murmurs present (Cardio) and Peripheral pulses 2+ throughout RATE: regular rate RHYTHM: regular rhythm HEART SOUNDS: S1 normal heart sound present and S2 normal heart sound present PERIPHERAL PULSES: Peripheral pulses 2+ throughout GI: COMMON NORMALS: Normal to inspection, nondistended, normoactive bowel sounds present, Soft to palpation, non-tender and no masses PALPATION: Yes Soft to palpation : COMMON NORMALS: Yes no CVA tenderness BLADDER/KIDNEY EXAM: Yes no CVA tenderness Back/Pelvis: COMMON NORMALS: no CVA tenderness Extremity: COMMON NORMALS: normal to inspection Neuro: COMMON NORMALS: patient oriented x3 SENSORIUM/ORIENTATION: Yes alert GAIT: Yes Normal gait present Skin: GENERAL SKIN EXAM: dry skin Course Vital Signs: Vital signs: Vital Signs Temperature 98.1 F 08/25/22 16:46 Pulse Rate 80 08/25/22 20:24 Respiratory Rate 18 08/25/22 20:24 Blood Pressure 136/83 08/25/22 16:46 Pulse Oximetry 96 08/25/22 20:24 Oxygen Delivery Me thod Room Air 08/25/22 19:41 MDM - Eye Problem Medical Decision Making Patient is a 32-year-old female comes to the ED with right eye complaint. Patient states that 2 days ago she was laying in bed and thinks she excellently scratched her right eye. That day patient went and saw her eye doctor and they diagnosed her with an abrasion to the right eye gave her 1 dose of erythromycin eye ointment but did not send her home with any daily doses. Patient says her right eyes just got more red and having purulent type discharge. She rates her pain currently a 4 out of 10.vitals are stable. Patient has right eye conjunctivitis that is diffuse. Fluorescein dye exam with lamp showed corneal abrasion on right eye. Patient was given dose of Maxitrol eyedrops and was discharged home with a prescription for Maxitrol. Strict return ED precautions given. And she was told to follow-up with her eye doctor in the next 2 days for reevaluation. Patient understood agree with plan. Discharge Plan Discharge Patient Disposition: Home Clinical Impression: Corneal abrasion Qualifiers: Encounter type: initial encounter Laterality: right Qualified Code(s): S05.01XA - Injury of conjunctiva and corneal abrasion without foreign body, right eye, initial encounter Condition: Stable Prescriptions: New Maxitrol 3.5mg/mL-10,000 unit/mL-0.1 % drops,suspension 2 drp ophthalmic (eye) Q6H 7 Days Qty: 5 0RF No Action dexamethasone 6 mg tablet 6 mg PO DAILY Qty: 7 0RF Discharge Orders: Discharge ED (Routine); Ordered 08/25/22 Ordered By: Kyle Vizcarra Referrals: Dennis Stein MD [Primary Care Provider] - Discharge Diet: Regular Discharge Activity: Increase activity as tolerated Patient Instructions: Corneal Abrasion (ED) Activity Restrictions/Additional Instructions: Follow-up with medical provider as directed. Follow-up with your eye doctor or call Dr. [facility] on Saturday morning phone number is [phone]. Address is [facility] [address] Marcial Martins. take medications as prescribed. Return to the ER or your medical provider if condition worsens. Please read and understand discharge instructions. If any questions, please ask. Coding Level of Care Code ED Component Overhaul Operator for Svetlana Alvarado
[2022-08-25] MEDS: neomycin-poly-dex Op 5 mL Btl 2 DROP EYE-RIGHT (20:19)
[2022-08-25 20:24] VITALS: PULSE 80; RESP 18; O2SAT 96
== END 2022-08-25 20:24 | disposition home or self-care (01) ==
PROVIDERS: Emergency Provider Physician Assistant; PCP Family Medicine
DX: S05.01XA Injury of conjunctiva and corneal abrasion without foreign body, right eye, initial encounter (principal); X58.XXXA Exposure to other specified factors, initial encounter
CPT/HCPCS: 99283

== ENCOUNTER → 2022-10-25 15:41 | Outpatient (BNVA) | payer OTHER, SELFPAY | PROVIDERS: PCP Family Medicine; Visit Provider Emergency Medicine | DX: S89.90XA Unspecified injury of unspecified lower leg, initial encounter (principal); W19.XXXA Unspecified fall, initial encounter | CPT/HCPCS: 73562 ==

== ENCOUNTER 2023-06-10 18:39 | Emergency (ER) | payer MEDICAID, SELFPAY ==
[2023-06-10 18:58] VITALS: BP 146/83; PULSE 93; RESP 18; TEMP 36.8; O2SAT 98
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
[2023-06-10] MEDS: tizanidine 4 mg Tablet PO (21:36)
== END 2023-06-10 20:38 | disposition home or self-care (01) ==
PROVIDERS: Emergency Provider Physician Assistant
DX: M54.30 Sciatica, unspecified side (principal); M54.16 Radiculopathy, lumbar region
CPT/HCPCS: 99283

== ENCOUNTER 2023-09-24 10:54 | Day surgery (SDC) | payer MEDICAID, SELFPAY ==
--- NOTE | 2023-09-24 11:02 | W.PM.OPSFHP ---
Same Day Surgery H&P Indication for Procedure/HPI DATE OF PROCEDURE: September 24, 2023 CHIEF COMPLAINT/INDICATIONFOR SURGICAL PROCEDURE: GERD PREOP DIAGNOSIS: Reflux PLANNED PROCEDURE: Operation Date: 09/24/23 12:00 Proposed Procedures p EGD 89781, K44.9, K21.9(Not Applicable) - Simon Cintron MD Medications/Allergies* Allergies/Adverse Reactions Allergy/AdvReac Type Severity Reaction Status Date / Time No Known Allergies Allergy Verified 09/04/23 13:57 Pertinent History/Comorbid Conditions* Medical History (Updated 08/24/23 @ 15:31 by Enzo Mcgowan MD) Hiatal hernia with gastroesophageal reflux BMI 50.0-59.9, adult Allergic rhinitis Surgical History (Updated 08/26/22 @ 01:00 by RALPH Cadena) No pertinent past surgical history Social History Smoking and tobacco/nicotine status: never used tobacco/nicotine Second hand smoke exposure: No Alcohol intake: never Substance/Drug Use: never Pertinent Exam Findings alert, oriented x 3, clear to auscultation bilaterally and regular rate & rhythm Recommendations Surgery/Procedure today Coding Level of Care Code Acute Code for Chg Fwd
[2023-09-24 11:08] VITALS: BMI 51.3
[2023-09-24] MEDS: sodium chloride 0.9% 1,000 ML 30 ML IV (11:24)
[2023-09-24 11:26] VITALS: BP 147/87; PULSE 76; RESP 17; TEMP 36.6; O2SAT 97
--- NOTE | 2023-09-24 11:58 | ANES.PREANE2 ---
Pre-Anesthetic Assessment Height/Weight: Height 1.6 m Weight 131.542 kg Temp Pulse Resp BP Pulse Ox O2 Del Method 97.9 F 76 17 147/87 97 Room Air 09/24/23 11:26 09/24/23 11:26 09/24/23 11:26 09/24/23 11:26 09/24/23 11:26 09/24/23 11:26 Preop Diagnosis: Reflux Operation Date: 09/24/23 12:00 Proposed Procedures p EGD 97334, K44.9, K21.9(Not Applicable) - Simon Cintron MD Last intake: Intake Last Liquid Date 09/23/23 Last Liquid Time 20:00 Last Solid Date 09/23/23 Last Solid Time 20:00 Social No tobacco Exam alert, oriented x 3, clear to auscultation bilaterally and regular rate & rhythm Airway Submandibular: within normal limits Cervical ROM: within normal limits Mallampati: Class II Pulmonary Sleep Apnea CV/HEM None reported None reported Hepatic None reported Metabolic None reported Musc/skel None reported Anesthetic Plan ASA status: 3 Anesthesia: MAC Medications/Allergies Home Medications Medication Instructions Recorded Confirmed Last Taken Type ibuprofen 800 mg tablet 800 mg PO Q8H PRN pain #30 tabs 10/25/22 09/19/23 Unknown Rx miscellaneous medical supply 1 ea miscellaneous DAILY PRN pain 10/25/22 09/19/23 Unknown Rx (scale score 1-3) #1 ea naproxen 500 mg tablet 500 mg PO BID PRN pain #20 tabs 06/10/23 09/19/23 Unknown Rx tizanidine 4 mg capsule 4 mg PO Q8H PRN muscle spasticity 06/10/23 09/19/23 Unknown Rx #20 caps pantoprazole 40 mg tablet,delayed 40 mg PO BID epigastric pain #30 08/24/23 09/19/23 09/08/23 Rx release tabs Allergies Allergy/AdvReac Type Severity Reaction Status Date / Time No Known Allergies Allergy Verified 09/04/23 13:57 Current Medications Generic Name Dose Route Start Last Admin Trade Name Freq PRN Reason Stop Dose Admin Sodium Chloride 1,000 mls @ 30 mls/hr 09/24/23 11:00 09/24/23 11:24 Sodium Chloride 0.9% IV 09/25/23 10:59 30 mls/hr .Q24H RADHA Administration PFSH Anesthesia Medical History (Updated 09/04/23 @ 13:59 by Johanne Gandara MA) Hiatal hernia with gastroesophageal reflux BMI 50.0-59.9, adult Allergic rhinitis Surgical History (Updated 09/04/23 @ 13:59 by Johanne Gandara MA) No pertinent past surgical history Social History (Updated 09/04/23 @ 13:59 by Johanne Gandara MA) Smoking and tobacco/nicotine status: never used tobacco/nicotine Second hand smoke exposure: No Alcohol intake: never Substance/Drug Use: never Data Anesthesia Cardiac Studies: No Data to Display
[2023-09-24 12:16] VITALS: BP 138/91; PULSE 117; RESP 18; TEMP 36.6; O2SAT 96
[2023-09-24] MEDS: ondansetron 2 mg/ML SDV 2 mL 4 MG IVP (12:23)
--- NOTE | 2023-09-24 12:28 | PC.NURSE ---
Pt with nausea and vomiting in recovery, treated with zofran via IV. Voiced some relief.
[2023-09-24 12:33] VITALS: BP 119/84; PULSE 87; RESP 18; O2SAT 97
--- NOTE | 2023-09-24 12:37 | PC.NURSE ---
Addendum entered by Eveline Gomez RN 09/24/23 12:38: Pt tolerating sprite. Original Note: N/V improved with Amrik, binu to DC.
--- NOTE | 2023-09-24 13:41 | P.ANESPOST_ITS ---
Inpatient post-anesthesia follow up: Vital signs: Temperature 97.8 F Pulse Rate 87 Respiratory Rate 18 Blood Pressure 119/84 Pulse Oximetry 97 Oxygen Delivery Me thod Room Air Oxygen Flow Rate Fraction of Inspir ed Oxygen Hydration adequate: Yes Nausea and vomiting: No Pain level: con trolled Mental status: Baseline Additional Comments: no apparent anesthetic complications noted
== END 2023-09-24 13:06 | disposition home or self-care (01) ==
PROVIDERS: Visit Provider Surgery
PROC: 0DJ08ZZ Inspection of Upper Intestinal Tract, Via Natural or Artificial Opening Endoscopic (ICD-10-PCS; CPT 43235; principal; 2023-09-24 12:00)
DX: K21.00 Gastro-esophageal reflux disease with esophagitis, without bleeding (principal); K29.70 Gastritis, unspecified, without bleeding
CPT/HCPCS: 43239; 88305; 88342; J2405; J2704; J7030

== ENCOUNTER 2023-10-05 09:32 | Observation (INO) | payer MEDICAID, SELFPAY ==
[2023-10-05] VITALS (22 sets, daily range): BP systolic 108–161; BP diastolic 66–139; PULSE 70–102; RESP 12–20; TEMP 36.4–37.2; O2SAT 93–100; BMI 52.1
--- NOTE | 2023-10-05 09:42 | ED_ITS ---
HPI - Nausea/Vomiting/Diarrhea 2 General: Chief complaint: Nausea/Vomiting/Diarrhea Stated complaint: N/V, left side and back pain Time Seen by Provider: 10/05/23 09:35 Source: patient Mode of arrival: ambulatory Limitations: no limitations History of Present Illness: 33-year-old female states she has been h aving nausea vomiting since last night states she has had multiple episodes not been able to tolerate any p.o. states she is also had some left-sided flank pain she states the pain is sharp rates it a 5 out of 10 she denies any dysuria denies any fevers she denies any worse improved factors. Associated nausea: Yes Associated symtoms: Reports nausea; Denies chest pain, dysuria or headache(s) Review of Systems 2 Const: Denies: fever(s), chills, body aches or change in appetite ENMT: Denies: throat pain or dental pain Card: Denies: chest pain Resp: Denies: dyspnea GI: Reports: abdominal pain, nausea and vomiting; Denies: diarrhea : Reports: flank pain; Denies: dysuria Musc: Denies: neck pain or back pain Skin/Breast: Denies: rash Neuro: Denies: headache(s) PFSH ED 2 PFSH: Medical History Hiatal hernia with gastroesophageal reflux BMI 50.0-59.9, adult Allergic rhinitis Surgical History (Updated 09/04/23 @ 13:59 by Johanne Gandara MA) No pertinent past surgical history Social History Smoking and tobacco/nicotine status: never used tobacco/nicotine Second hand smoke exposure: No Alcohol intake: never Substance/Drug Use: never Physical Exam 2 Const: COMMON NORMALS: no acute distress, patient oriented x3 and healthy appearing HENMT: COMMON NORMALS: normocephalic and atraumatic HEAD & SCALP: n ormocephalic and atraumatic Eye: COMMON NORMALS: conjunctivae normal CONJUNCTIVA: Yes conjunctivae normal Neck/C-Spine: COMMON NORMALS: full ROM and supple Chest: COMMONS NORMALS: normal inspection of the chest Resp: COMMON NORMALS: normal respiratory effort Cardio: COMMON NORMALS: regular rate, regular rhythm and No murmurs present (Cardio) RATE: regular rate RHYTHM: regular rhythm GI: COMMON NORMALS: Normal to inspection, nondistended, normoactive bowel sounds present, Soft to palpation and no masses PALPATION: Yes Soft to palpation OTHER: diffuse lower tenderness Extremity: COMMON NORMALS: normal to inspection and full ROM Neuro: COMMON NORMALS: patient oriented x3, moves all extremities and no focal motor deficits Psych: COMMON NORMALS: mental status grossly normal, Normal thought process present and cooperative THOUGHT PROCESS: Normal thought process present Skin: COMMON NORMALS: no rashes or lesions noted and no wounds GENERAL SKIN EXAM: no rashes or lesions noted Course 2 Vital Signs: Vital signs: Vital Signs Temperature 98.4 F 10/05/23 09:45 Pulse Rate 79 10/05/23 10:27 Respiratory Rate 18 10/05/23 10:27 Blood Pressure 134/99 10/05/23 10:27 Pulse Oximetry 96 10/05/23 10:27 Oxygen Delivery Me thod Room Air 10/05/23 10:27 MDM - Nausea/Vomiting/Diarrhea Medical Decision Making Patient presents here with abdominal pain and vomiting CT does show appendicitis I spoke to surgeon is going to take the OR will start on antibiotics here. Medical Records I reviewed the patient's medical records. Lab Data I reviewed the patient's lab results. 10/05/23 09:49 10/05/23 09:49 Radiology Impressions Abdomen/Pelvis CT 10/05/23 09:42 IMPRESSION: 1. Acute appendicitis without abscess or free air. 2. Additional details as above. ADDENDUM: 10/05/23 1104 ADDENDUM: THIS REPORT CONTAINS FINDINGS THAT MAY BE CRITICAL TO PATIENT CARE. The findings were verbally communicated via telephone conference with JAVIER DAWSON at 11:03 AM CDT on 10/05/2023. The findings were acknowledged and understood. Laboratory Results WBC 16.10 10^3/uL (3.29-11.43) H 10/05/23 09:49 RBC 5.04 10^6/uL (3.85-5.65) 10/05/23 09:49 Hgb 15.20 g/dL (11.27-16.99) 10/05/23 09:49 Hct 44.8 % (36-47) 10/05/23 09:49 MCV 88.9 fl (85-98) 10/05/23 09:49 MCH 30.2 pg (27-33) 10/05/23 09:49 MCHC 33.9 g/dL (30-55) 10/05/23 09:49 RDW 12.0 % (12.1-15.1) L 10/05/23 09:49 Plt Count 290 10^3/cmm (157-399) 10/05/23 09:49 MPV 12.5 fL (7.4-10.4) H 10/05/23 09:49 Neut % (Auto) 88.0 % 10/05/23 09:49 Lymph % (Auto) 8.1 % 10/05/23 09:49 [place] % (Auto) 3.3 % 10/05/23 09:49 Eos % (Auto) 0.1 % 10/05/23 09:49 Baso % (Auto) 0.1 % 10/05/23 09:49 Neut # (Auto) 14.17 10^3/uL (1.8-7.7) H 10/05/23 09:49 Lymph # (Auto) 1.3 10^3/uL (0.8-4.8) 10/05/23 09:49 [place] # (Auto) 0.5 10^3/uL (0.2-0.9) 10/05/23 09:49 Eos # (Auto) 0.0 10^3/uL (0.0-0.8) 10/05/23 09:49 Baso # (Auto) 0.0 10^3/uL (0.0-0.1) 10/05/23 09:49 Nucleated RBC % (auto) 0 % 10/05/23 09:49 Nucleated RBCs # 0.0 /100WBC 10/05/23 09:49 Sodium 135 mmol/L (136-145) L 10/05/23 09:49 Potassium 3.8 mmol/L (3.5-5.1) 10/05/23 09:49 Chloride 100 mmol/L (98-107) 10/05/23 09:49 Carbon Dioxide 25 mmol/L (22-29) 10/05/23 09:49 Anion Gap 13.8 (5-19) 10/05/23 09:49 BUN 9 mg/dL (6-20) 10/05/23 09:49 Creatinine 0.6 mg/dL (0.5-0.9) 10/05/23 09:49 GFR Calculation 115.9 mL/min (90-130) 10/05/23 09:49 Glucose 134 mg/dL (65-115) H 10/05/23 09:49 Calculated Osmolality 281 mOsm/kg (285-295) L 10/05/23 09:49 Calcium 9.5 mg/dL (8.5-10.5) 10/05/23 09:49 Total Bilirubin 0.5 mg/dL (0.15-1.2) 10/05/23 09:49 AST 12 U/L (0-32) 10/05/23 09:49 ALT 16 U/L (0-33) 10/05/23 09:49 Alkaline Phosphatase 93 U/L (35-105) 10/05/23 09:49 Total Protein 7.8 g/dL (6.6-8.7) 10/05/23 09:49 Albumin 3.9 g/dL (3.5-5.2) 10/05/23 09:49 Globulin 3.9 g/dL (1.3-4.6) 10/05/23 09:49 Lipase 19 U/L (13-60) 10/05/23 09:49 HCG, Qual Negative (Negative) 10/05/23 09:49 Urine Color Yellow (Yellow) 10/05/23 09:43 Urine Appearance Slightly cloudy (CLEAR) 10/05/23 09:43 Urine pH 7 (5-7) 10/05/23 09:43 Ur Specific [place] 1.015 (1.005-1.030) 10/05/23 09:43 Urine Protein 1+ (Negative) H 10/05/23 09:43 Urine Glucose (UA) Norm (Normal) 10/05/23 09:43 Urine Ketones 1+ (Negative) H 10/05/23 09:43 Urine Blood 2+ (Negative) H 10/05/23 09:43 Urine Nitrate Negative (Negative) 10/05/23 09:43 Urine Bilirubin Neg (Negative) 10/05/23 09:43 Urine Urobilinogen Norm mg/dL (Negative) 10/05/23 09:43 Ur Leukocyte Esterase 1+ (Negative) H 10/05/23 09:43 Urine RBC 10-15 /hpf (0-2) H 10/05/23 09:43 Urine WBC 5-10 /hpf (0-5) H 10/05/23 09:43 Ur Squamous Epith Cells 10-15 /hpf (0-5) H 10/05/23 09:43 Amorphous Sediment Not Reportable 10/05/23 09:43 Urine Bacteria 1+ /hpf (NONE) H 10/05/23 09:43 Urine Mucus 1+ /hpf 10/05/23 09:43 All radiology interpretation(s) finalized by discharge Discharge Plan Discharge Patient Disposition: Admitted As Inpatient Clinical Impression: Appendicitis Condition: Stable Prescriptions: No Action tizanidine 4 mg capsule 4 mg PO Q8H PRN (Reason: muscle spasticity) Qty: 20 0RF medroxyprogesterone 150 mg/mL suspension 150 mg IM .Q3M sucralfate 100 mg/mL suspension 1 g PO BID 56 Days Qty: 1120 0RF pantoprazole 40 mg tablet,delayed release (DR/EC) 40 mg PO BID Qty: 30 0RF Coding Level of Care Code ED [employer] for Svetlana Alvarado
--- NOTE | 2023-10-05 09:42 | CTR_ITS ---
PROCEDURE INFORMATION: Exam: CT Abdomen And Pelvis Without Contrast Exam date and time: 10/05/2023 10:33 AM Age: 33 years old Clinical indication: Abdominal pain; Flank; Left; Additional info: L flank pain TECHNIQUE: Imaging protocol: Computed tomography of the abdomen and pelvis without contrast. Radiation optimization: All CT scans at this facility use at least one of these dose optimization techniques: automated exposure control; mA and/or kV adjustment per patient size (includes targeted exams where dose is matched to clinical indication); or iterative reconstruction. COMPARISON: CT abdomen pelvis w con* [id number] 04/07/2021 9:56 PM RADIATION DOSE METRICS: Total DLP (mGy-cm): 1246.2 FINDINGS: Diaphragm: Small hiatal hernia. Liver: Unchanged mild hepatomegaly. Otherwise, unremarkable. Gallbladder and bile ducts: Normal. No calcified stones. No ductal dilation. Pancreas: Normal. No ductal dilation. Spleen: Normal. No splenomegaly. Adrenal glands: Normal. No mass. Kidneys and ureters: Unchanged cyst in the upper right kidney needs no follow-up. A few tiny nonobstructing right renal calculi. Otherwise, unremarkable. Stomach and bowel: A few diverticula from the colon. No acute diverticulitis. Otherwise, unremarkable. Appendix: The appendix is dilated and thick walled. It measures 1.4 cm in diameter. There is stranding and disorganized fluid in the periappendiceal fat. This is acute appendicitis. A tiny appendicolith is in the appendix. There is no associated abscess. Intraperitoneal space: Unremarkable. No free air. No significant fluid collection. Vasculature: Unremarkable. No abdominal aortic aneurysm. Lymph nodes: Unremarkable. No enlarged lymph nodes. Urinary bladder: Unremarkable as visualized. Reproductive: Unremarkable as visualized. Bones/joints: Unchanged minimal and mild multilevel spondylosis. Otherwise, unremarkable. Soft tissues: Small, benign-appearing fat containing umbilical hernia. Otherwise, unremarkable visualized body wall. Otherwise, unremarkable soft tissues. CT/CT kidney stone [id number] IMPRESSION: 1. Acute appendicitis without abscess or free air. 2. Additional details as above.
[2023-10-05] MEDS: morphine 4 mg/mL SDV 1 mL IVP (09:48)
[2023-10-05] MEDS: ondansetron 2 mg/ML SDV 2 mL 4 MG IVP ×2 (09:48→13:48)
[2023-10-05] MEDS: sodium chloride 0.9% 1,000 ML 999 ML IV ×2 (09:49→11:18)
[2023-10-05 09:55] LABS: Basophils % 0.1 %; Eosinophils % 0.1 %; Hematocrit 44.8 % (36-47); Lymphocytes # 1.3 10^3/uL (0.8-4.8); Lymphocytes % 8.1 %; Mean Corpuscular HGB Conc 33.9 g/dL (30-55); Mean Corpuscular Hemoglobin 30.2 pg (27-33); Mean Corpuscular Volume 88.9 fl (85-98); Mean Platelet Volume 12.5 fL (7.4-10.4); Monocytes # 0.5 10^3/uL (0.2-0.9); Monocytes % 3.3 %; Neutrophils # 14.17 10^3/uL (1.8-7.7); Nucleated Red Blood Cells % 0 %; Platelet Count 290 10^3/cmm (157-399); Red Blood Count 5.04 10^6/uL (3.85-5.65)
[2023-10-05 10:12] LABS: Alanine Aminotransferase 16 U/L (0-33); Albumin Level 3.9 g/dL (3.5-5.2); Alkaline Phosphatase 93 U/L (35-105); Anion Gap 13.8 (5-19); Aspartate Amino Transferase 12 U/L (0-32); Blood Urea Nitrogen 9 mg/dL (6-20); Calcium 9.5 mg/dL (8.5-10.5); Carbon Dioxide 25 mmol/L (22-29); Chloride 100 mmol/L (98-107); Creatinine Clr Calc Pharmacy 173.7604; Globulin 3.9 g/dL (1.3-4.6); Glomerular Filtration Rate 115.9 mL/min (90-130); Glucose 134 mg/dL (65-115); Lipase 19 U/L (13-60); Osmolality Calculated 281 mOsm/kg (285-295); Potassium 3.8 mmol/L (3.5-5.1); Sodium 135 mmol/L (136-145); Total Bilirubin 0.5 mg/dL (0.15-1.2); Total Protein 7.8 g/dL (6.6-8.7)
[2023-10-05 10:17] LABS: HCG, Serum Qual Negative (Negative)
[2023-10-05 10:20] LABS: Urine Color Yellow (Yellow)
[2023-10-05 10:21] LABS: Add Urine Microscopic? YES; Bilirubin Urine Neg (Negative); Blood Urine 2+ (Negative); Glucose Urine UA Norm (Normal); Ketones Urine 1+ (Negative); Leukocyte Esterase Urine 1+ (Negative); Nitrate Urine Negative (Negative); Protein Urine 1+ (Negative); Specific Gravity, Urine 1.015 (1.005-1.030); Urine Appearance Slightly Cloudy (CLEAR); Urobilinogen Urine Norm (Negative); pH Urine 7 (5-7)
[2023-10-05 10:22] LABS: Add Urine Culture? No; Bacteria Urine 1+ /hpf; Mucus Urine 1+ /hpf
[2023-10-05] MEDS: ketorolac 30 mg/mL INJ 15 MG IVP ×3 (11:17→20:38)
[2023-10-05] MEDS: piperacillin-tazobactam 3.375 GM in sodium chloride 0.9% (plus) 50 ML IV ×3 (11:17→22:15)
--- NOTE | 2023-10-05 11:41 | P.HP_ITS ---
Providers/Chief Complaint 2 Chief Complaint: N/V, left side and back pain History of Present Illness Kriss Patel is a 33 year old female who presents to the emergency room complaining of abdominal pain nausea and vomiting. Workup shows evidence of an elevated white count to 16,[address] scan of the abdomen and pelvis with contrast showed evidence of acute appendicitis. Per patient the pain has been there for about 24 hours Review of Systems 2 General: Reports: 10 or more systems reviewed and unremarkable except in HPI and below Medications/Allergies Home Medications Medication Instructions Recorded Confirmed Last Taken Type tizanidine 4 mg capsule 4 mg PO Q8H PRN muscle spasticity 06/10/23 10/05/23 Unknown Rx #20 caps pantoprazole 40 mg tablet,delayed 40 mg PO BID epigastric pain #30 09/24/23 10/05/23 10/04/23 Rx release tabs sucralfate 100 mg/mL oral 1 g (10 mL) PO BID 8 weeks #1,120 09/24/23 10/05/23 10/04/23 Rx suspension mL medroxyprogesterone 150 mg/mL 150 mg IM .Q3M 10/05/23 10/05/23 09/25/23 History intramuscular suspension Allergies Allergy/AdvReac Type Severity Reaction Status Date / Time No Known Allergies Allergy Verified 09/04/23 13:57 PFSH Acute 2 PFSH: Medical History Hiatal hernia with gastroesophageal reflux BMI 50.0-59.9, adult Allergic rhinitis Surgical History (Updated 09/04/23 @ 13:59 by Johanne Gandara MA) No pertinent past surgical history Social History Smoking and tobacco/nicotine status: never used tobacco/nicotine Second hand smoke exposure: No Alcohol intake: never Substance/Drug Use: never Vitals/I&O/Wt Last Vital Signs Temp 98.4 F 10/05/23 09:45 Pulse 84 10/05/23 11:22 Resp 16 10/05/23 11:22 BP 126/93 10/05/23 11:22 Pulse Ox 100 10/05/23 11:22 O2 Del Method Room Air 10/05/23 11:22 Weight last 48 hrs Weight 285 lb Physical Exam 2 Narrative: General : Patient is well developed , no acute distress, oriented x3 Head : Normal cephalic, a-traumatic. Nose : Mucous membranes are without erythema. Lungs : Equal chest rise bilaterally, no use of accessory muscles, trachea is midline. CV : Rate and rhythm are normal. Abdomen : Soft, there is tenderness in the lower abdomen. Extremities : No edema. Upper extremities are normal bilaterally. Back : non-tender to palpation, no CVA tenderness. Data 10/05/23 09:49 10/05/23 09:49 A&P Assessment and plan (1) Appendicitis: Plan after complete history, physical examination and review of all available clinical data the following is my assessment. Patient has clinical presentation consistent with acute appendicitis laparoscopic appendectomy is indicated. I discussed all risk and benefits with the patient including the risk of bleeding, infection, need for additional interventions, risk of injury to the surrounding structures including the small bowel, colon, ureter, bladder, vascular structures of the pelvis. Resume intra-abdominal bleeding, resolved abscess formation, need for conversion to open procedure. Due to patient elevated BMI she is at increased risk for morbidity and mortality during the procedure. Patient shows understanding and agrees to proceed. Attestations 2 Medical Necessity Statement*: Possible discharge after surgery Coding Level of Care Code Acute Code for [facility] Diagnoses Appendicitis K37
[2023-10-05] MEDS: sodium chloride 0.9% 1,000 ML 30 ML IV (12:04)
--- NOTE | 2023-10-05 12:04 | P.ANESASSM_ITS ---
Pre-Anesthetic Assessment Height/Weight: Height 1.57 m Weight 129.274 kg Temp Pulse Resp BP Pulse Ox O2 Del Method 98.4 F 84 16 126/93 100 Room Air 10/05/23 09:45 10/05/23 11:22 10/05/23 11:22 10/05/23 11:22 10/05/23 11:22 10/05/23 11:22 Operation Date: 10/05/23 11:55 Proposed Procedures p Laparoscopic Appendectomy(Not Applicable) - Simon Cintron MD Familial anesthetic complications: None Was Beta Scot taken within 24 hours: N/A Was Clonidine taken within 24 hours: N/A Last intake: > 8hrs Social No alcohol and No tobacco Exam alert, oriented x 3, clear to auscultation bilaterally and regular rate & rhythm Airway Mallampati: Class II Dentition: full Metabolic Morbid Obesity Anesthetic Plan ASA status: 2 Anesthesia: General Risk of > 500 ml blood loss (7ml/kg in children): No Medications/Allergies Home Medications Medication Instructions Recorded Confirmed Last Taken Type tizanidine 4 mg capsule 4 mg PO Q8H PRN muscle spasticity 06/10/23 10/05/23 Unknown Rx #20 caps pantoprazole 40 mg tablet,delayed 40 mg PO BID epigastric pain #30 09/24/23 10/05/23 10/04/23 Rx release tabs sucralfate 100 mg/mL oral 1 g (10 mL) PO BID 8 weeks #1,120 09/24/23 10/05/23 10/04/23 Rx suspension mL medroxyprogesterone 150 mg/mL 150 mg IM .Q3M 10/05/23 10/05/23 09/25/23 History intramuscular suspension Allergies Allergy/AdvReac Type Severity Reaction Status Date / Time No Known Allergies Allergy Verified 09/04/23 13:57 [facility] Anesthesia Medical History Hiatal hernia with gastroesophageal reflux BMI 50.0-59.9, adult Allergic rhinitis Surgical History (Updated 09/04/23 @ 13:59 by Johanne Gandara MA) No pertinent past surgical history Social History Smoking and tobacco/nicotine status: never used tobacco/nicotine Second hand smoke exposure: No Alcohol intake: never Substance/Drug Use: never Data Anesthesia 10/05/23 09:49 10/05/23 09:49 Short CBC 10/05/23 Range/Units 09:49 WBC 16.10 H (3.29-11.43) 10^3/uL Hgb 15.20 (11.27-16.99) g/dL Hct 44.8 (36-47) % MCV 88.9 (85-98) fl Plt Count 290 (157-399) 10^3/cmm Neut % (Auto) 88.0 % Neut # (Auto) 14.17 H (1.8-7.7) 10^3/uL BMP 10/05/23 09:49 Sodium 135 L Potassium 3.8 Chloride 100 Carbon Dioxide 25 BUN 9 Creatinine 0.6 Glucose 134 H Calcium 9.5 Liver Function 10/05/23 Range/Units 09:49 Total Bilirubin 0.5 (0.15-1.2) mg/dL AST 12 (0-32) U/L ALT 16 (0-33) U/L Alkaline Phosphatase 93 (35-105) U/L Albumin 3.9 (3.5-5.2) g/dL Urine 10/05/23 Range/Units 09:43 Urine Color Yellow (Yellow) Urine Appearance Slightly cloudy (CLEAR) Urine pH 7 (5-7) Ur Specific [place] 1.015 (1.005-1.030) Urine Protein 1+ H (Negative) Urine Glucose (UA) Norm (Normal) Urine Ketones 1+ H (Negative) Urine Nitrate Negative (Negative) Urine Bilirubin Neg (Negative) Ur Leukocyte Esterase 1+ H (Negative) Urine RBC 10-15 H (0-2) /hpf Urine WBC 5-10 H (0-5) /hpf Cardiac Studies: 2 No Data to Display
[2023-10-05] MEDS: BUPivacaine 0.25% INJ 30 mL INJECTION (12:33)
[2023-10-05] MEDS: lidocaine-epi 2% PF 1:200,000 20 mL SDV XX (12:33)
--- NOTE | 2023-10-05 13:33 | P.OP_ITS ---
Operative Report Date of procedure: October 05, 2023 Pre-op diagnosis: Acute appendicitis Post-op diagnosis: Acute appendicitis, umbilical hernia Post-op findings: Acute appendicitis with significant periappendiceal fat stranding and edema and free fluid surrounding the appendix, 2 cm umbilical hernia was noted Procedure done: Laparoscopic appendectomy, primary repair of umbilical hernia Specimens removed/disposition: Appendix Surgeon: Simon Cintron MD Director Loss Prevention: [facility] OR Staff Estimated blood loss: 10 Brief History: This is a 34-year-old female who presents with abdominal pain nausea and vomit, CT scan done in the ED show evidence of acute appendicitis and she had an elevated white count to 16,000. After discussion of all risk and benefits as documented my preop note we decided to proceed with laparoscopic appendectomy. Procedure: Patient was brought into the OR. General anesthesia was given. The abdomen was prepped and draped in the usual sterile fashion, timeout was conducted. The abdomen was accessed with an Optiview technique via a 5 mm trocar in the left upper quadrant. Initial laparoscopy showed no evidence of visceral injury during entry. During laparoscopy umbilical hernia was identified and measure about 2 cm. The hernia containing only fat that reduce without need of intervention during insufflation. I decided to use this site for my second trocar, under rib visualization a 12 mm trocar was placed in the umbilical region through the existing umbilical hernia. Another 5 mm trocar was placed in the right lower quadrant under direct visualization. The cecum was noted to be on the right upper quadrant, after manipulation of the cecum and I was able to identify the appendix, this laid in a retrocecal position and with the tip close to the level of the liver. With blunt dissection I was able to deflate the appendix to a normal anatomic position. There was significant inflammation of the periappendiceal fat. I used the LigaSure to take down the fat all the way down to the base. The base of the appendix appeared healthy and I transected the appendix at this level using a 45 mm blue load Endo ESTER stapler. After transection the staple line appeared to be intact, hemostatic and healthy. The specimen was retrieved in an Endo Catch bag via the umbilical trocar site. Small amount of fluid was noted in the right paracolic gutter and appendiceal bed, I used a Ray-Martin to remove this fluid from the abdomen and the Ray-Martin was immediately removed from the abdominal cavity. The medical trocar was removed, under direct visualization and then proceeded to do a primary repair of the umbilical hernia using a Jacob-Silvia suture passer and 3-0 Vicryl [id number] sutures, very good approximation of the defect was achieved. Under the visualization the right lower quadrant trocar was removed, the left upper quadrant trocar was used to evacuate the pneumoperitoneum and subsequently removed. The wounds were then closed in layers, for the umbilical wound and extra 0 Vicryl was placed to approximate the deep tissue and then 3-0 Vicryl and 4-0 Monocryl was used, the other 2 trocar sites were closed with 4-0 Monocryl. Dermabond was applied over the wounds. At the end of the procedure all counts were correct, the patient tolerated well the procedure and was transferred to the PACU in stable condition.
--- NOTE | 2023-10-05 14:15 | ANE.PACU2 ---
Inpatient post-anesthesia follow up: Airway intact: Yes Vital signs: Temperature 98.1 F Pulse Rate 62 Respiratory Rate 18 Blood Pressure 133/80 Pulse Oximetry 95 Oxygen Delivery Me thod Room Air Oxygen Flow Rate 6 Fraction of Inspir ed Oxygen Hydration adequate: Yes Nausea and vomiting: No Pain level: 1 Mental status: Baseline
[2023-10-05] MEDS: cetylpyridinium Lozenge 1 EACH MUCOUS MEM (14:46)
[2023-10-05] MEDS: oxyCODONE 5 mg IR Tab/Cap PO (16:35)
[2023-10-06] MEDS: ketorolac 30 mg/mL INJ 15 MG IVP ×2 (02:44→10:07)
[2023-10-06 04:15] VITALS: BP 109/69; PULSE 99; RESP 17; TEMP 36.5; O2SAT 95
--- NOTE | 2023-10-06 04:16 | ECG_ITS ---
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 Measurements Intervals [place] Rate: 61 P: -5 PA: 131 QRS: -50 QRSD: 85 T: 21 QT: 381 QTc: 385 Interpretive Statements SINUS RHYTHM LEFT AXIS DEVIATION [QRS AXIS < -30] PATTERN CONSISTENT WITH PULMONARY DISEASE No previous ECG available for comparison Electronically Signed On 10-07-2023 8:31:50 CDT by Mckenzie Jasso M.D. [id number]
--- NOTE | 2023-10-06 04:39 | PC.NURSE ---
Patient had been running SR and SA on telemetry. Patient's heart rate dropped down to 37 sinus bradycardia. Patient did not sustain rhythm. An EKG was performed to verify accuracy. EKG revealed SR. Patient states she has no history of heart irregularities.
[2023-10-06] MEDS: piperacillin-tazobactam 3.375 GM in sodium chloride 0.9% (plus) 50 ML IV (05:22)
[2023-10-06 05:43] LABS: Basophils % 0.1 %; Eosinophils % 0.1 %; Hematocrit 40.4 % (36-47); Lymphocytes # 1.9 10^3/uL (0.8-4.8); Lymphocytes % 21.3 %; Mean Corpuscular HGB Conc 31.7 g/dL (30-55); Mean Corpuscular Hemoglobin 29.7 pg (27-33); Mean Corpuscular Volume 93.7 fl (85-98); Mean Platelet Volume 12.7 fL (7.4-10.4); Monocytes # 0.5 10^3/uL (0.2-0.9); Monocytes % 5.1 %; Neutrophils # 6.64 10^3/uL (1.8-7.7); Neutrophils % 73.1 %; Nucleated Red Blood Cells % 0 %; Platelet Count 244 10^3/cmm (157-399); Red Blood Count 4.31 10^6/uL (3.85-5.65); Red Cell Distribution Width 12.1 % (12.1-15.1); White Blood Count 9.09 10^3/uL (3.29-11.43)
[2023-10-06 06:00] VITALS: PULSE 64
[2023-10-06 06:11] LABS: Anion Gap 11.1 (5-19); Blood Urea Nitrogen 8 mg/dL (6-20); Calcium 8.6 mg/dL (8.5-10.5); Carbon Dioxide 26 mmol/L (22-29); Chloride 107 mmol/L (98-107); Creatinine Clr Calc Pharmacy 179.2353; Glomerular Filtration Rate 115.9 mL/min (90-130); Glucose 105 mg/dL (65-115); Osmolality Calculated 289 mOsm/kg (285-295); Potassium 4.1 mmol/L (3.5-5.1); Sodium 140 mmol/L (136-145)
[2023-10-06 07:55] VITALS: BP 101/68; PULSE 68; RESP 18; TEMP 36.7; O2SAT 97
--- NOTE | 2023-10-06 09:01 | PM.DCS ---
Discharge Providers Date of Admission: 10/05/23 13:53 Date of Discharge: October 06, 2023 Attending Provider at Admission: Simon Cintron MD Attending Provider at Discharge: Simon Cintron MD Diagnoses at Discharge Discharge Diagnosis (1) Appendicitis: Details from hospital stay: 34-year-old female who presented to the hospital with acute appendicitis. Patient is postoperative day 1 status post laparoscopic appendectomy and primary repair of umbilical hernia. Patient doing well overnight, complains of some tenderness over the level of the bellybutton but other than that no significant symptoms. Her white count normalized, she was able to tolerate diet. The plan will be for patient to be discharged home and follow-up in the clinic as outpatient. Status: Acute Reason for Visit Reason for Visit: N/V, left side and back pain Physical Exam GI: OTHER: Abdomen is soft, appropriately tender, surgical incisions covered with Dermabond, umbilical incision covered with Dermabond and compressive dressing Discharge Data Studies Completed and Pending Completed Studies During Hospitalization Category Date Time Status CT abdomen renal stone [CT kidney stone [id number]] Stat Cat Scan 10/05/23 09:42 Completed Pending at discharge Category Date Time Status Pathology: Surgical [PTH] Routine Pth 10/05/23 13:48 Ordered Radiology Impressions Abdomen/Pelvis CT 10/05/23 09:42 IMPRESSION: 1. Acute appendicitis without abscess or free air. 2. Additional details as above. ADDENDUM: 10/05/23 1104 ADDENDUM: THIS REPORT CONTAINS FINDINGS THAT MAY BE CRITICAL TO PATIENT CARE. The findings were verbally communicated via telephone conference with JAVIER DAWSON at 11:03 AM CDT on 10/05/2023. The findings were acknowledged and understood. Laboratory Results WBC 9.09 10^3/uL (3.29-11.43) 10/06/23 05: RBC 4.31 10^6/uL (3.85-5.65) 10/06/23 05:24 Hgb 12.80 g/dL (11.27-16.99) 10/06/23 05:24 Hct 40.4 % (36-47) 10/06/23 05:24 MCV 93.7 fl (85-98) D 10/06/23 05:24 MCH 29.7 pg (27-33) 10/06/23 05:24 MCHC 31.7 g/dL (30-55) D 10/06/23 05:24 RDW 12.1 % (12.1-15.1) 10/06/23 05:24 Plt Count 244 10^3/cmm (157-399) 10/06/23 05:24 MPV 12.7 fL (7.4-10.4) H 10/06/23 05:24 Neut % (Auto) 73.1 % 10/06/23 05:24 Lymph % (Auto) 21.3 % 10/06/23 05:24 [place] % (Auto) 5.1 % 10/06/23 05:24 Eos % (Auto) 0.1 % 10/06/23 05:24 Baso % (Auto) 0.1 % 10/06/23 05:24 Neut # (Auto) 6.64 10^3/uL (1.8-7.7) 10/06/23 05:24 Lymph # (Auto) 1.9 10^3/uL (0.8-4.8) 10/06/23 05:24 [place] # (Auto) 0.5 10^3/uL (0.2-0.9) 10/06/23 05:24 Eos # (Auto) 0.0 10^3/uL (0.0-0.8) 10/06/23 05:24 Baso # (Auto) 0.0 10^3/uL (0.0-0.1) 10/06/23 05:24 Nucleated RBC % (auto) 0 % 10/06/23 05:24 Nucleated RBCs # 0.0 /100WBC 10/06/23 05:24 Sodium 140 mmol/L (136-145) 10/06/23 05:24 Potassium 4.1 mmol/L (3.5-5.1) 10/06/23 05:24 Chloride 107 mmol/L (98-107) 10/06/23 05:24 Carbon Dioxide 26 mmol/L (22-29) 10/06/23 05:24 Anion Gap 11.1 (5-19) 10/06/23 05:24 BUN 8 mg/dL (6-20) 10/06/23 05:24 Creatinine 0.6 mg/dL (0.5-0.9) 10/06/23 05:24 GFR Calculation 115.9 mL/min (90-130) 10/06/23 05:24 Glucose 105 mg/dL (65-115) 10/06/23 05:24 Calculated Osmolality 289 mOsm/kg (285-295) 10/06/23 05:24 Calcium 8.6 mg/dL (8.5-10.5) 10/06/23 05:24 Total Bilirubin 0.5 mg/dL (0.15-1.2) 10/05/23 09:49 AST 12 U/L (0-32) 10/05/23 09:49 ALT 16 U/L (0-33) 10/05/23 09:49 Alkaline Phosphatase 93 U/L (35-105) 10/05/23 09:49 Total Protein 7.8 g/dL (6.6-8.7) 10/05/23 09:49 Albumin 3.9 g/dL (3.5-5.2) 10/05/23 09:49 Globulin 3.9 g/dL (1.3-4.6) 10/05/23 09:49 Lipase 19 U/L (13-60) 10/05/23 09:49 HCG, Qual Negative (Negative) 10/05/23 09:49 Urine Color Yellow (Yellow) 10/05/23 09:43 Urine Appearance Slightly cloudy (CLEAR) 10/05/23 09:43 Urine pH 7 (5-7) 10/05/23 09:43 Ur Specific [place] 1.015 (1.005-1.030) 10/05/23 09:43 Urine Protein 1+ (Negative) H 10/05/23 09:43 Urine Glucose (UA) Norm (Normal) 10/05/23 09:43 Urine Ketones 1+ (Negative) H 10/05/23 09:43 Urine Blood 2+ (Negative) H 10/05/23 09:43 Urine Nitrate Negative (Negative) 10/05/23 09:43 Urine Bilirubin Neg (Negative) 10/05/23 09:43 Urine Urobilinogen Norm mg/dL (Negative) 10/05/23 09:43 Ur Leukocyte Esterase 1+ (Negative) H 10/05/23 09:43 Urine RBC 10-15 /hpf (0-2) H 10/05/23 09:43 Urine WBC 5-10 /hpf (0-5) H 10/05/23 09:43 Ur Squamous Epith Cells 10-15 /hpf (0-5) H 10/05/23 09:43 Amorphous Sediment Not Reportable 10/05/23 09:43 Urine Bacteria 1+ /hpf (NONE) H 10/05/23 09:43 Urine Mucus 1+ /hpf 10/05/23 09:43 Vitals Last Vital Signs Temp 98.0 F 10/06/23 07:55 Pulse 68 10/06/23 07:55 Resp 18 10/06/23 07:55 BP 101/68 10/06/23 07:55 Pulse Ox 97 10/06/23 07:55 O2 Del Method Room Air 10/06/23 07:55 O2 Flow Rate 6 10/05/23 13:42 Discharge Plan Discharge Patient Disposition: Home Condition: Stable Prescriptions: New amoxicillin-pot clavulanate 875-125 mg tablet 1 tab PO BID Qty: 14 0RF oxycodone 5 mg tablet 5 mg PO Q8H PRN (Reason: pain) Qty: 20 0RF Continued tizanidine 4 mg capsule 4 mg PO Q8H PRN (Reason: muscle spasticity) Qty: 20 0RF medroxyprogesterone 150 mg/mL suspension 150 mg IM .Q3M sucralfate 100 mg/mL suspension 1 g PO BID 56 Days Qty: 1120 0RF pantoprazole 40 mg tablet,delayed release (DR/EC) 40 mg PO BID Qty: 30 0RF Discharge Orders: Discharge Order (Routine); Ordered 10/06/23 Ordered By: Simon Cintron Referrals: Simon Cintron MD [Physician] - (2 weeks) Discharge Diet: Advance as tolerated Discharge Activity: Limit activity as instructed Activity Restrictions/Additional Instructions: Please walk is much as possible to improve your recovery. Do not lift anything heavier than 10 pounds for the next 4 to 6 weeks. You can shower starting the day after tomorrow, let soap and water run over your wounds and then pat dry. You can remove the dressing over your bellybutton next week. Return to the hospital you have fever chills severe abdominal pain nausea or vomit. Discharge Attestations Time Spent in Discharge Care*: less than 30 min Quality Metrics Clinical Quality Measures [ No reported AMI, CVA or VTE this stay] Coding Level of Care Code Acute Code for Chg Fwd Diagnoses Appendicitis K37
[2023-10-06] MEDS: pantoprazole 40 mg SDV IVP (10:08)
[2023-10-06 10:59] VITALS: BP 133/80; PULSE 62; RESP 18; TEMP 36.7; O2SAT 95
== END 2023-10-06 11:56 | disposition home or self-care (01) ==
LOC: ER 11:20 → OR 11:21 → MEDSURG 13:54
PROVIDERS: Admitting Provider Surgery; Emergency Provider Emergency Medicine; Visit Provider Surgery
PROC: 0DTJ4ZZ Resection of Appendix, Percutaneous Endoscopic Approach (ICD-10-PCS; CPT 44970; principal; 2023-10-05 11:55)
PROC: 0WQF4ZZ Repair Abdominal Wall, Percutaneous Endoscopic Approach (ICD-10-PCS; CPT 44970; 2023-10-05 11:55)
DX: K35.80 Unspecified acute appendicitis (principal); K42.9 Umbilical hernia without obstruction or gangrene; E66.01 Morbid (severe) obesity due to excess calories; Z68.43 Body mass index [BMI] 50.0-59.9, adult
CPT/HCPCS: 44970; 36415; 74176; 80048; 80053; 81001; 83690; 84703; 85025; 88304; 93005; 96365; 96375; 99285; C9113; G0378; J0330; J1100; J1885; J2270; J2405; J2543; J2704; J2710; J3010; J3490; J7030

== ENCOUNTER 2023-12-31 20:00 | Outpatient (CLI) | payer MEDICAID, SELFPAY | END 2023-12-31 20:01 | disposition home or self-care (01) | LOC: SLEEP 01-01 01:30 | PROVIDERS: Visit Provider Nurse Practitioner Family | DX: G47.30 Sleep apnea, unspecified (principal); J02.9 Acute pharyngitis, unspecified; R06.83 Snoring; G47.33 Obstructive sleep apnea (adult) (pediatric); G47.36 Sleep related hypoventilation in conditions classified elsewhere; F51.9 Sleep disorder not due to a substance or known physiological condition, unspecified | CPT/HCPCS: 95810 ==

== ENCOUNTER 2024-01-15 14:49 | Emergency (ER) | payer MEDICAID, SELFPAY ==
[2024-01-15 14:52] VITALS: BP 130/88; PULSE 89; RESP 15; TEMP 36.9; O2SAT 98; BMI 51.9
--- NOTE | 2024-01-15 15:22 | ED_ITS ---
HPI - Wound/Laceration General: Chief Complaint: Wound/Laceration Stated Complaint: stomach rash Time Seen by Provider: 01/15/24 14:59 Source: patient Mode of arrival: ambulatory Limitations: no limitations History of Present Illness: 33-year-old female who states she has albarado d an area on her right lower abdomen started off as a bolus states it has been draining had some surrounding erythema she was seen yesterday started on clindamycin states that area of erythema is actually improved some but she wanted to have another person look at it. Denies any fever denies any vomiting states the area is painful. Associated symptoms: Denies chills, fever(s), nausea or vomiting Related Data Home Medications Medication Instructions Recorded Confirmed medroxyprogesterone 150 mg/mL 150 mg IM .Q3M 10/05/23 10/16/23 intramuscular suspension Previous Rx's Medication Instructions Recorded tizanidine 4 mg capsule 4 mg PO Q8H PRN muscle spasticity 06/10/23 #20 caps pantoprazole 40 mg tablet,delayed 40 mg PO BID epigastric pain #30 09/24/23 release tabs amoxicillin 875 mg-potassium 1 tab PO BID #14 tabs 10/05/23 clavulanate 125 mg tablet oxycodone 5 mg tablet 5 mg PO Q8H PRN pain #20 tabs 10/05/23 cephalexin 500 mg capsule 500 mg PO TID 7 days #21 caps 01/15/24 hydrocodone 5 mg-acetaminophen 325 1 tab PO Q6H PRN pain #14 tabs 01/15/24 mg tablet Allergies Allergy/AdvReac Type Severity Reaction Status Date / Time No Known Allergies Allergy Verified 10/16/23 09:14 Review of Systems Const: Denies: fever(s), chills, body aches or change in appetite ENMT: Denies: throat pain or dental pain Card: Denies: chest pain Resp: Denies: dyspnea GI: Denies: abdominal pain, nausea, vomiting or diarrhea Musc: Denies: neck pain or back pain Skin/Breast: Reports: rash Neuro: Denies: headache(s) PFSH ED PFSH: Medical History Hiatal hernia with gastroesophageal reflux BMI 50.0-59.9, adult Allergic rhinitis Surgical History No pertinent past surgical history Social History Smoking and tobacco/nicotine status: never used tobacco/nicotine Second hand smoke exposure: No Alcohol intake: never Substance/Drug Use: never Physical Exam Const: COMMON NORMALS: no acute distress, patient oriented x3 and healthy appearing HENMT: COMMON NORMALS: normocephalic and atraumatic HEAD & SCALP: normocephalic and atraumatic Eye: COMMON NORMALS: Equal, round and reactive pupils present PUPIL: Yes Equal, round and reactive pupils present Neck/C-Spine: COMMON NORMALS: full ROM and supple Chest: COMMONS NORMALS: normal inspection of the chest Resp: COMMON NORMALS: normal respiratory effort Cardio: COMMON NORMALS: regular rate, regular rhythm and No murmurs present (Cardio) RATE: regular rate RHYTHM: regular rhythm GI: OTHER: Patient appears to have an abscess to her right lower abdomen that is already open and draining at this time no fluctuance noted surrounding area of cellulitis Extremity: COMMON NORMALS: normal to inspection and full ROM Neuro: COMMON NORMALS: patient oriented x3, moves all extremities and no focal motor deficits Psych: COMMON NORMALS: mental status grossly normal, Normal thought process present and cooperative THOUGHT PROCESS: Normal thought process present Skin: COMMON NORMALS: no rashes or lesions noted and no wounds GENERAL SKIN EXAM: no rashes or lesions noted Course Vital Signs: Vital signs: Vital Signs Temperature 98.5 F 01/15/24 14:52 Pulse Rate 89 01/15/24 14:52 Respiratory Rate 15 01/15/24 14:52 Blood Pressure 130/88 01/15/24 14:52 Pulse Oximetry 98 01/15/24 14:52 Oxygen Delivery Me thod Room Air 01/15/24 14:52 MDM - Wound/Laceration Medical Decision Making Patient presents here with an abscess is already opened and drainage no signs of any can be incised at this time she does have surrounding cellulitis we will add Keflex to her clinda will prescribe him pain medicine she is to follow-up with her PCP return if worsening she understands agrees to plan Medical Records I reviewed the patient's medical records. No radiology studies performed this visit Discharge Plan Discharge Patient Disposition: Home Clinical Impression: Abscess, Cellulitis Condition: Stable Prescriptions: New hydrocodone-acetaminophen 5-325 mg tablet 1 tab PO Q6H PRN (Reason: pain) Qty: 14 0RF cephalexin 500 mg capsule 500 mg PO TID 7 Days Qty: 21 0RF No Action tizanidine 4 mg capsule 4 mg PO Q8H PRN (Reason: muscle spasticity) Qty: 20 0RF medroxyprogesterone 150 mg/mL suspension 150 mg IM .Q3M amoxicillin-pot clavulanate 875-125 mg tablet 1 tab PO BID Qty: 14 0RF oxycodone 5 mg tablet 5 mg PO Q8H PRN (Reason: pain) Qty: 20 0RF pantoprazole 40 mg tablet,delayed release (DR/EC) 40 mg PO BID Qty: 30 0RF Discharge Orders: Discharge ED (Routine); Ordered 01/15/24 Ordered By: Libia Bates Discharge Diet: Advance as tolerated Discharge Activity: Resume usual activity Patient Instructions: Cellulitis (ED), Abscess (ED) Coding Level of Care Code ED Journey Lineman for Svetlana Alvarado
[2024-01-15] MEDS: cefTRIAXone 1,000 MG in water for injection-sterile 2.1 ML 1000 MG IM (15:33)
[2024-01-15 15:39] VITALS: RESP 16
== END 2024-01-15 15:47 | disposition home or self-care (01) ==
PROVIDERS: Emergency Provider Emergency Medicine
DX: L02.211 Cutaneous abscess of abdominal wall (principal); L03.311 Cellulitis of abdominal wall
CPT/HCPCS: 96372; 99284; J0696

== ENCOUNTER → 2024-02-14 18:22 | Outpatient (BNVA) | payer MEDICAID, SELFPAY | PROVIDERS: Visit Provider Nurse Practitioner | DX: R09.81 Nasal congestion (principal) | CPT/HCPCS: 87400; 87426 ==

== ENCOUNTER 2024-03-03 20:00 | Outpatient (CLI) | payer MEDICAID, SELFPAY | END 2024-03-03 20:01 | disposition home or self-care (01) | LOC: SLEEP 21:31 | PROVIDERS: Visit Provider Nurse Practitioner Family | DX: G47.33 Obstructive sleep apnea (adult) (pediatric) (principal); Z99.89 Dependence on other enabling machines and devices | CPT/HCPCS: 95811 ==

== ENCOUNTER 2024-03-24 14:47 | Emergency (ER) | payer MEDICAID, SELFPAY ==
[2024-03-24 14:58] VITALS: BP 119/82; PULSE 82; RESP 20; TEMP 36.7; O2SAT 99; BMI 32.8
[2024-03-24 15:48] LABS: Basophils % 0.3 %; Eosinophils % 0.4 %; Hematocrit 46.4 % (36-47); Lymphocytes # 2.6 10^3/uL (0.8-4.8); Lymphocytes % 29.1 %; Mean Corpuscular HGB Conc 32.3 g/dL (30-55); Mean Corpuscular Hemoglobin 29.2 pg (27-33); Mean Corpuscular Volume 90.4 fl (85-98); Mean Platelet Volume 12.3 fL (7.4-10.4); Monocytes # 0.5 10^3/uL (0.2-0.9); Monocytes % 5.9 %; Neutrophils # 5.69 10^3/uL (1.8-7.7); Nucleated Red Blood Cells % 0 %; Platelet Count 292 10^3/cmm (157-399); Red Blood Count 5.13 10^6/uL (3.85-5.65); Red Cell Distribution Width 12.3 % (12.1-15.1); White Blood Count 8.92 10^3/uL (3.29-11.43)
[2024-03-24 16:04] LABS: HCG, Serum Qual Negative (Negative)
[2024-03-24 16:10] LABS: Alanine Aminotransferase 19 U/L (0-33); Albumin Level 3.9 g/dL (3.5-5.2); Alkaline Phosphatase 110 U/L (35-105); Anion Gap 13.4 (5-19); Aspartate Amino Transferase 18 U/L (0-32); Blood Urea Nitrogen 13 mg/dL (6-20); Calcium 9.2 mg/dL (8.5-10.5); Carbon Dioxide 30 mmol/L (22-29); Chloride 99 mmol/L (98-107); Creatinine Clr Calc Pharmacy 138.1378; Globulin 3.6 g/dL (1.3-4.6); Glomerular Filtration Rate 115.9 mL/min (90-130); Glucose 99 mg/dL (65-115); Lipase 23 U/L (13-60); Osmolality Calculated 286 mOsm/kg (285-295); Potassium 4.4 mmol/L (3.5-5.1); Sodium 138 mmol/L (136-145); Total Bilirubin 0.2 mg/dL (0.15-1.2); Total Protein 7.5 g/dL (6.6-8.7)
== END 2024-03-24 17:05 | disposition left against medical advice (07) ==
PROVIDERS: Emergency Medicine
DX: Z53.21 Procedure and treatment not carried out due to patient leaving prior to being seen by health care provider (principal); R10.9 Unspecified abdominal pain
CPT/HCPCS: 80053; 83690; 84703; 85025

== ENCOUNTER 2024-04-21 14:31 | Emergency (ER) | payer MEDICAID, SELFPAY ==
[2024-04-21] VITALS (8 sets, daily range): BP systolic 108–147; BP diastolic 49–80; PULSE 101–135; RESP 17–20; TEMP 36.8–39.5; O2SAT 93–98; BMI 50.6
--- NOTE | 2024-04-21 14:58 | XR_ITS ---
WS: [id number] Exam: XR chest 1V portable [id number] Date/Time of Exam: 04/21/2024 3:03 PM Reason For Exam: fevers Comparison 04/11/2019. The lungs are clear and fully inflated. Normal cardiomediastinal silhouette. Unremarkable bony struct ures. XR/XR chest 1V portable [id number] IMPRESSION: 1. Normal chest.
[2024-04-21 15:05] LABS: Basophils % 0.1 %; Hematocrit 44.2 % (36-47); Lymphocytes # 1.1 10^3/uL (0.8-4.8); Lymphocytes % 16.4 %; Mean Corpuscular HGB Conc 32.8 g/dL (30-55); Mean Corpuscular Hemoglobin 29.5 pg (27-33); Mean Platelet Volume 11.8 fL (7.4-10.4); Monocytes # 0.4 10^3/uL (0.2-0.9); Monocytes % 5.5 %; Neutrophils # 5.26 10^3/uL (1.8-7.7); Neutrophils % 77.7 %; Nucleated Red Blood Cells % 0 %; Platelet Count 248 10^3/cmm (157-399); Red Blood Count 4.91 10^6/uL (3.85-5.65); Red Cell Distribution Width 12.3 % (12.1-15.1); White Blood Count 6.77 10^3/uL (3.29-11.43)
--- NOTE | 2024-04-21 15:14 | CTR_ITS ---
PROCEDURE INFORMATION: Exam: CT Abdomen And Pelvis With Contrast Exam date and time: 04/21/2024 4:35 PM Age: 33 years old Clinical indication: Abdominal pain; Additional info: Abdominal pain, fevers TECHNIQUE: Imaging protocol: Computed tomography of the abdomen and pelvis with contrast. Radiation optimization: All CT scans at this facility use at least one of these dose optimization techniques: automated exposure control; mA and/or kV adjustment per patient size (includes targeted exams where dose is matched to clinical indication); or iterative reconstruction. Contrast material: OMNI 350; Contrast volume: 100 ml; Contrast route: INTRAVENOUS (IV); COMPARISON: 1. CT kidney stone [id number] 10/05/2023 10:[address] abdomen pelvis w con* [id number] 04/07/2021 9:56 PM RADIATION DOSE METRICS: Total DLP (mGy-cm): 1230.83 FINDINGS: Lungs: Lung bases are clear. Liver: Liver is mildly enlarged. There are 2 indistinct hypodense liver lesions inferiorly in the right lobe of similar size largest which measures 2 cm not evident on prior contrast-enhanced CT exam in 2020 difficult to further characterize. Possibility of small liver abscesses cannot be ruled out. Gallbladder and biliary ducts: Normal. No calcified stones. No ductal dilation. Pancreas: Normal. No ductal dilation. Spleen: Normal. No splenomegaly. Adrenal glands: Normal. No mass. Kidneys and ureters: Bilateral renal cysts redemonstrated unchanged. No calculi or hydronephrosis. Stomach and bowel: Scattered diverticula transverse colon and descending colon. No evidence of acute diverticulitis. Appendix: Appendix has been removed. Intraperitoneal space: There is subtle indistinct increased mesenteric fat attenuation just deep to the diastasis left of midline uncertain etiology but relatively unchanged from most recent exam Remainder of the abdominopelvic fat planes are preserved. There is no free fluid. There is no abscess collection. Vasculature: Unremarkable. No abdominal aortic aneurysm. Lymph nodes: Unremarkable. No enlarged lymph nodes. Urinary bladder: Unremarkable as visualized. Reproductive: Unremarkable as visualized. Bones/joints: Unremarkable. No acute fracture. Soft tissues: There is diastasis of the abdominal wall redemonstrated with small superimposed fat containing umbilical hernia mildly increased in size. CT/CT abdomen pelvis w con* [id number] IMPRESSION: 1. Interval development of 2 small ill-defined hypodense liver lesions inferior aspect right lobe inconclusive for small liver abscesses. Contrast-enhanced MR exam of the liver may be helpful for further assessment. 2. Diastasis of the abdominal wall with a small superimposed fat containing umbilical hernia there is mildly increased in size from previous exam. 3. Subtle indistinct increased mesenteric fat attenuation just deep to the diastasis recti left of midline relatively unchanged but of uncertain etiology. 4. Colonic diverticulosis. No evidence of acute diverticulitis.
--- NOTE | 2024-04-21 15:15 | ED_ITS ---
Documented by User: RALPH Posey 04/23/24 13:33 HPI - Abdominal Pain 2 General: Chief Complaint: Abdominal Pain Stated Complaint: abd pain, back pain, fever, nausua Time Seen by Provider: 04/21/24 14:51 Source: patient Mode of arrival: ambulatory Limitations: no limitations History of Present Illness: Patient is a 33-year-old female with a history of morbid obesity with a BMI of 50.7, known umbilical and hiatal hernia, and sleep apnea here with concerns of abdominal pain and a fever. Patient states she began feeling like she was feverish yesterday evening as well as developed chills. Upon arrival to the emergency department today she is febrile at 103.1. She states she has a 3-year-old child that does attend daycare but he has not been ill recently. Patient states she has not had nasal congestion, runny nose, sore throat, headache, or cough. She does state her known umbilical hernia has been bothering her more than usual. She states hernia is reducible and she has not noticed anything stuck . She states she has met with general surgery regarding this but they are wanting her to lose weight before they will operate. Patient feels nauseous but she has not had any episodes of vomiting. She denies dysuria, frequency, urgency. She has not noticed any changes in bowel movements. No rash. Denies neck pain/stiffness. MD elicited complaint: abdominal pain Pertinent past history: none Onset (ago): day(s) (yesterday) Pain Consistency: constant Location: Periumbilical Severity: severe Radiation: none Migration to: no migration Exacerbating factors: movement and other (coughing, sneezing, etc) Relieving factors: nothing Associated Symptoms: Reports chills, fever(s) and nausea; Denies diarrhea, dysuria, heartburn, syncope and vomiting Related Data Home Medications Medication Instructions Recorded Confirmed medroxyprogesterone 150 mg/mL 150 mg IM .Q3M 10/05/23 04/21/24 intramuscular suspension acetaminophen 500 mg tablet 1,000 mg PO Q6H PRN Pain 04/21/24 04/21/24 Previous Rx's Medication Instructions Recorded cefdinir 300 mg capsule 300 mg PO BID 10 days #20 caps 04/21/24 Allergies Allergy/AdvReac Type Severity Reaction Status Date / Time No Known Allergies Allergy Verified 04/21/24 14:46 Review of Systems 2 Const: Reports: fever(s), chills and body aches; Denies: fatigue or malaise Eyes: Denies: change in vision, blurry vision, photophobia, floaters or seeing flashes ENMT: Denies: throat pain, odynophagia, nasal discharge, nasal congestion or sinus pain Card: Denies: chest pain, palpitations, irregular heart rhythm, lightheadedness, syncope or dyspnea on exertion Resp: Denies: dyspnea, productive cough or pain on inspiration GI: Reports: abdominal pain and nausea; Denies: vomiting, heartburn or diarrhea : Denies: flank pain, difficulty voiding or dysuria Musc: Denies: neck pain, back pain, extremity pain, extremity swelling or joint pain Skin/Breast: Denies: rash Neuro: Denies: headache(s), numbness in extremities, weakness in extremities or sensory changes PFSH ED 2 PFSH: Medical History Hiatal hernia with gastroesophageal reflux BMI 50.0-59.9, adult Allergic rhinitis Surgical History No pertinent past surgical history Social History Smoking and tobacco/nicotine status: unknown if used tobacco/nicotine Second hand smoke exposure: No Alcohol intake: never Substance/Drug Use: never Physical Exam 2 Const: COMMON NORMALS: patient oriented x3, alert and well nourished G ENERAL APPEARANCE: cooperative and in distress (appears uncomfortable) N UTRITIONAL APPEARANCE: obese morbidly obese (BMI 50.7) O RIENTATION/CONSCIOUSNESS: Yes awake, Yes oriented to person, Yes oriented to place and Yes oriented to time HENMT: COMMON NORMALS: normocephalic, atraumatic, hearing grossly normal bilaterally, external ears normal, EAC's normal, TM's normal bilaterally, Normal external nose present, Normal nasal mucous membranes and turbinates present, moist oral mucous membranes, oropharynx normal and gingiva normal HEAD & SCALP: normal to inspection, normocephalic and atraumatic FACE & SINUS: n ormal facial exam and sinuses nontender NOSE: Normal external nose present and Normal nasal mucous membranes and turbinates present EXTERNAL EAR: Yes external ears normal EXTERNAL AUDITORY CANAL: EAC's normal TYMPANIC MEMBRANE: TM's normal bilaterally THROAT: posterior oropharynx normal and tonsils normal Eye: COMMON NORMALS: no scleral icterus GENERAL EYE: appearance normal, both eyes and all related structures Neck/C-Spine: COMMON NORMALS: full ROM, no lymphadenopathy, supple and no meningeal signs Chest: COMMONS NORMALS: normal inspection of the chest Resp: COMMON NORMALS: normal respiratory effort and clear to auscultation bilaterally AUSCULTATION: clear to auscultation bilaterally Cardio: COMMON NORMALS: regular rhythm RATE: tachycardic (pt febrile at 103.1) RHYTHM: regular rhythm GI: COMMON NORMALS: Soft to palpation, No hepatosplenomegaly present and no masses INSPECTION: Yes normal to inspection AUSCULTATION: Yes normoactive bowel sounds PALPATION: Yes Soft to palpation, Yes Tenderness to palpation present (GI) (across lower abdomen/periumbilical) and Yes No hepatosplenomegaly present OTHER: exam limited due to body habitus; no obvious incarcerated/strangulated hernia : COMMON NORMALS: Yes no CVA tenderness BLADDER/KIDNEY EXAM: Yes no CVA tenderness Back/Pelvis: COMMON NORMALS: no CVA tenderness and thoracic and lumbar spine normal to inspection Extremity: COMMON NORMALS: normal to inspection GENERAL: Yes normal exam except as noted Neuro: DEEJAY COMA SCALE: document GCS findings Deejay coma scale eye opening: Spontaneous Deejay coma scale verbal response: Orientated Deejay coma scale motor response: Obey commands Deejay coma scale total score: 15 COMMON NORMALS: patient oriented x3, CN's II-XII intact bilaterally, moves all extremities, no focal motor deficits and no sensory deficits noted S ENSORIUM/ORIENTATION: Yes alert, Yes oriented to person, Yes oriented to place and Yes oriented to time MENINGEAL SIGNS: Yes no meningeal signs Skin: COMMON NORMALS: no rashes or lesions noted GENERAL SKIN EXAM: no rashes or lesions noted Course 2 ED course: Patient feeling better now that fever is trending down. She is now afebrile. Labs overall are non-actionable. Normal white count/normal lactate. UA positive for 2+ leuks and 11-20 WBCs. She was ordered IV Rocephin for UTI coverage. CT scan is currently pending. Care transferred to Berny Fuentes PA-C at shift change ES Vital Signs: Vital signs: Vital Signs Temperature 98.2 F 04/21/24 16:54 Pulse Rate 103 H 04/21/24 17:55 Respiratory Rate 17 04/21/24 16:30 Blood Pressure 113/49 04/21/24 17:55 Pulse Oximetry 94 04/21/24 17:55 Oxygen Delivery Me thod Room Air 04/21/24 17:30 MDM - Abdominal Pain Lab Data 04/21/24 14:58 04/21/24 14:58 Labs/Radiology: Radiology Impressions Chest X-Ray 04/21/24 14:58 IMPRESSION: 1. Normal chest. Abdomen/Pelvis CT 04/21/24 15:14 IMPRESSION: 1. Interval development of 2 small ill-defined hypodense liver lesions inferior aspect right lobe inconclusive for small liver abscesses. Contrast-enhanced MR exam of the liver may be helpful for further assessment. 2. Diastasis of the abdominal wall with a small superimposed fat containing umbilical hernia there is mildly increased in size from previous exam. 3. Subtle indistinct increased mesenteric fat attenuation just deep to the diastasis recti left of midline relatively unchanged but of uncertain etiology. 4. Colonic diverticulosis. No evidence of acute diverticulitis. Laboratory Results WBC 6.77 10^3/uL (3.29-11.43) 04/21/24 14:58 RBC 4.91 10^6/uL (3.85-5.65) 04/21/24 14:58 Hgb 14.50 g/dL (11.27-16.99) 04/21/24 14:58 Hct 44.2 % (36-47) 04/21/24 14:58 MCV 90.0 fl (85-98) 04/21/24 14:58 MCH 29.5 pg (27-33) 04/21/24 14:58 MCHC 32.8 g/dL (30-55) 04/21/24 14:58 RDW 12.3 % (12.1-15.1) 04/21/24 14:58 Plt Count 248 10^3/cmm (157-399) 04/21/24 14:58 MPV 11.8 fL (7.4-10.4) H 04/21/24 14:58 Neut % (Auto) 77.7 % 04/21/24 14:58 Lymph % (Auto) 16.4 % 04/21/24 14:58 [place] % (Auto) 5.5 % 04/21/24 14:58 Eos % (Auto) 0.0 % 04/21/24 14:58 Baso % (Auto) 0.1 % 04/21/24 14:58 Neut # (Auto) 5.26 10^3/uL (1.8-7.7) 04/21/24 14:58 Lymph # (Auto) 1.1 10^3/uL (0.8-4.8) 04/21/24 14:58 [place] # (Auto) 0.4 10^3/uL (0.2-0.9) 04/21/24 14:58 Eos # (Auto) 0.0 10^3/uL (0.0-0.8) 04/21/24 14:58 Baso # (Auto) 0.0 10^3/uL (0.0-0.1) 04/21/24 14:58 Nucleated RBC % (auto) 0 % 04/21/24 14:58 Nucleated RBCs # 0.0 /100WBC 04/21/24 14:58 Sodium 135 mmol/L (136-145) L 04/21/24 14:58 Potassium 3.9 mmol/L (3.5-5.1) 04/21/24 14:58 Chloride 99 mmol/L (98-107) 04/21/24 14:58 Carbon Dioxide 26 mmol/L (22-29) 04/21/24 14:58 Anion Gap 13.9 (5-19) 04/21/24 14:58 BUN 11 mg/dL (6-20) 04/21/24 14:58 Creatinine 0.7 mg/dL (0.5-0.9) 04/21/24 14:58 GFR Calculation 97.0 mL/min (90-130) 04/21/24 14:58 Glucose 147 mg/dL (65-115) H 04/21/24 14:58 Calculated Osmolality 282 mOsm/kg (285-295) L 04/21/24 14:58 Lactic Acid 1.9 mmol/L (0.5-2.2) 04/21/24 14:58 Calcium 9.2 mg/dL (8.5-10.5) 04/21/24 14:58 Total Bilirubin 0.2 mg/dL (0.15-1.2) 04/21/24 14:58 AST 22 U/L (0-32) 04/21/24 14:58 ALT 20 U/L (0-33) 04/21/24 14:58 Alkaline Phosphatase 111 U/L (35-105) H 04/21/24 14:58 Total Protein 7.1 g/dL (6.6-8.7) 04/21/24 14:58 Albumin 3.5 g/dL (3.5-5.2) 04/21/24 14:58 Globulin 3.6 g/dL (1.3-4.6) 04/21/24 14:58 Lipase 21 U/L (13-60) 04/21/24 14:58 HCG, Qual Negative (Negative) 04/21/24 14:58 Urine Color Yellow (Yellow) 04/21/24 15:35 Urine Appearance Cloudy (CLEAR) A 04/21/24 15:35 Urine pH 6.5 (5-7) 04/21/24 15:35 Ur Specific [place] 1.018 (1.005-1.030) 04/21/24 15:35 Urine Protein Negative (Negative) 04/21/24 15:35 Urine Glucose (UA) Negative (Normal) 04/21/24 15:35 Urine Ketones Negative (Negative) 04/21/24 15:35 Urine Blood Negative (Negative) 04/21/24 15:35 Urine Nitrate Negative (Negative) 04/21/24 15:35 Urine Bilirubin Negative (Negative) 04/21/24 15:35 Urine Urobilinogen 1.0 mg/dL (Negative) 04/21/24 15:35 Ur Leukocyte Esterase 2+ (Negative) A 04/21/24 15:35 Urine RBC 0-2 /hpf (0-2) 04/21/24 15:35 Urine WBC 11-20 /hpf (0-5) H 04/21/24 15:35 Ur Squamous Epith Cells 0-5 /hpf (0-5) 04/21/24 15:35 Amorphous Sediment Not Reportable 04/21/24 15:35 Urine Bacteria 1+ /hpf (NONE) H 04/21/24 15:35 Hyaline Casts 0.81 /lpf 04/21/24 15:35 Coronavirus (PCR) Negative (Negative) 04/21/24 15:30 Influenza A (PCR) Negative (Negative) 04/21/24 15:30 Influenza Type B (PCR) Negative (Negative) 04/21/24 15:30 RSV (PCR) Negative (Negative) 04/21/24 15:30 Discharge Plan Discharge Patient Disposition: Home Clinical Impression: Acute cystitis Condition: Stable Prescriptions: New cefdinir 300 mg capsule 300 mg PO BID 10 Days Qty: 20 0RF No Action medroxyprogesterone 150 mg/mL suspension 150 mg IM .Q3M acetaminophen [Tylenol Ex Str Rapid Release] 500 mg Tablet 1,000 mg PO Q6H PRN (Reason: Pain) Discharge Orders: Discharge ED (Routine); Ordered 04/21/24 Ordered By: Simon Fuentes Patient Instructions: Urinary Tract Infection in Women (ED) Activity Restrictions/Additional Instructions: Drink plenty of fluids. Take cefdinir as prescribed. Please return if you develop any persistent fevers, worsening pain, significant nausea and vomiting, or other concerning symptoms you may have. See attached patient instructions for further guidance. Follow-up closely with primary care for general reevaluation. Sign Out Sign Out Data: Patient Sign Out occurred on 04/21/24 at 17:07. Patient's care was discussed, and care was transferred from RALPH Posey to RALPH Moreno. Coding Level of Care Code ED Greeting Card Maker for Chg Fwd Documented by User: RALPH Moreno 04/21/24 17:52 HPI - Abdominal Pain 2 General: Chief Complaint: Abdominal Pain Stated Complaint: abd pain, back pain, fever, nausua Time Seen by Provider: 04/21/24 14:51 Related Data Home Medications Medication Instructions Recorded Confirmed medroxyprogesterone 150 mg/mL 150 mg IM .Q3M 10/05/23 04/21/24 intramuscular suspension acetaminophen 500 mg tablet 1,000 mg PO Q6H PRN Pain 04/21/24 04/21/24 Previous Rx's Medication Instructions Recorded cefdinir 300 mg capsule 300 mg PO BID 10 days #20 caps 04/21/24 Allergies Allergy/AdvReac Type Severity Reaction Status Date / Time No Known Allergies Allergy Verified 04/21/24 14:46 PFSH ED 2 PFSH: Medical History Hiatal hernia with gastroesophageal reflux BMI 50.0-59.9, adult Allergic rhinitis Surgical History No pertinent past surgical history Social History Smoking and tobacco/nicotine status: unknown if used tobacco/nicotine Second hand smoke exposure: No Alcohol intake: never Substance/Drug Use: never Physical Exam 2 Neuro: DEEJAY COMA SCALE: document GCS findings [place] coma scale total score: 15 Course 2 Vital Signs: Vital signs: Vital Signs Temperature 98.2 F 04/21/24 16:54 Pulse Rate 103 H 04/21/24 17:55 Respiratory Rate 17 04/21/24 16:30 Blood Pressure 113/49 04/21/24 17:55 Pulse Oximetry 94 04/21/24 17:55 Oxygen Delivery De thod Room Air 04/21/24 17:30 MDM - Abdominal Pain Medical Decision Making Patient care transferred to pr at shift change. Patient presented to the emergency department for abdominal pain and fever, known history of umbilical hernia. She did arrive febrile temperature 103.1, tachycardic as well and complaining of nausea. Fever brought down to 98 to after receiving Tylenol, and pain and nausea controlled with morphine and Zofran, respectively. On recheck while waiting for imaging, she states that she felt 100% better and was ready to go home. Blood work unremarkable including unremarkable lactic acid and no elevation of white count. Urinalysis showing evidence of minor urinary tract infection, she was given a gram of Rocephin through an IV. Chest x-ray unremarkable. CT abdomen and pelvis was ordered to rule out any acute abdomen, all of which did not demonstrate any acute process. There were a few nonspecific findings that I discussed with the patient, and informed her to follow-up with primary care to discuss these findings. There was no strangulation or incarceration of her hernia, no kidney infection, and no surgical abdomen. As stated, she was noting much improvement of her symptoms. Her fever potentially could have been elevated secondary to a superimposed viral infection, though her COVID flu RSV swab was negative. Encouraged her to drink plenty of fluids and continue taking Tylenol/Motrin for any fevers, and she will start taking cefdinir for her urinary tract infection. Strict return precautions were given, and all other questions and concerns addressed. Patient comfortable with discharge home at this time. Lab Data 04/21/24 14:58 04/21/24 14:58 Labs/Radiology: Radiology Impressions Chest X-Ray 04/21/24 14:58 IMPRESSION: 1. Normal chest. Abdomen/Pelvis CT 04/21/24 15:14 IMPRESSION: 1. Interval development of 2 small ill-defined hypodense liver lesions inferior aspect right lobe inconclusive for small liver abscesses. Contrast-enhanced MR exam of the liver may be helpful for further assessment. 2. Diastasis of the abdominal wall with a small superimposed fat containing umbilical hernia there is mildly increased in size from previous exam. 3. Subtle indistinct increased mesenteric fat attenuation just deep to the diastasis recti left of midline relatively unchanged but of uncertain etiology. 4. Colonic diverticulosis. No evidence of acute diverticulitis. Laboratory Results WBC 6.77 10^3/uL (3.29-11.43) 04/21/24 14:58 RBC 4.91 10^6/uL (3.85-5.65) 04/21/24 14:58 Hgb 14.50 g/dL (11.27-16.99) 04/21/24 14:58 Hct 44.2 % (36-47) 04/21/24 14:58 MCV 90.0 fl (85-98) 04/21/24 14:58 MCH 29.5 pg (27-33) 04/21/24 14:58 MCHC 32.8 g/dL (30-55) 04/21/24 14:58 RDW 12.3 % (12.1-15.1) 04/21/24 14:58 Plt Count 248 10^3/cmm (157-399) 04/21/24 14:58 MPV 11.8 fL (7.4-10.4) H 04/21/24 14:58 Neut % (Auto) 77.7 % 04/21/24 14:58 Lymph % (Auto) 16.4 % 04/21/24 14:58 [place] % (Auto) 5.5 % 04/21/24 14:58 Eos % (Auto) 0.0 % 04/21/24 14:58 Baso % (Auto) 0.1 % 04/21/24 14:58 Neut # (Auto) 5.26 10^3/uL (1.8-7.7) 04/21/24 14:58 Lymph # (Auto) 1.1 10^3/uL (0.8-4.8) 04/21/24 14:58 [place] # (Auto) 0.4 10^3/uL (0.2-0.9) 04/21/24 14:58 Eos # (Auto) 0.0 10^3/uL (0.0-0.8) 04/21/24 14:58 Baso # (Auto) 0.0 10^3/uL (0.0-0.1) 04/21/24 14:58 Nucleated RBC % (auto) 0 % 04/21/24 14:58 Nucleated RBCs # 0.0 /100WBC 04/21/24 14:58 Sodium 135 mmol/L (136-145) L 04/21/24 14:58 Potassium 3.9 mmol/L (3.5-5.1) 04/21/24 14:58 Chloride 99 mmol/L (98-107) 04/21/24 14:58 Carbon Dioxide 26 mmol/L (22-29) 04/21/24 14:58 Anion Gap 13.9 (5-19) 04/21/24 14:58 BUN 11 mg/dL (6-20) 04/21/24 14:58 Creatinine 0.7 mg/dL (0.5-0.9) 04/21/24 14:58 GFR Calculation 97.0 mL/min (90-130) 04/21/24 14:58 Glucose 147 mg/dL (65-115) H 04/21/24 14:58 Calculated Osmolality 282 mOsm/kg (285-295) L 04/21/24 14:58 Lactic Acid 1.9 mmol/L (0.5-2.2) 04/21/24 14:58 Calcium 9.2 mg/dL (8.5-10.5) 04/21/24 14:58 Total Bilirubin 0.2 mg/dL (0.15-1.2) 04/21/24 14:58 AST 22 U/L (0-32) 04/21/24 14:58 ALT 20 U/L (0-33) 04/21/24 14:58 Alkaline Phosphatase 111 U/L (35-105) H 04/21/24 14:58 Total Protein 7.1 g/dL (6.6-8.7) 04/21/24 14:58 Albumin 3.5 g/dL (3.5-5.2) 04/21/24 14:58 Globulin 3.6 g/dL (1.3-4.6) 04/21/24 14:58 Lipase 21 U/L (13-60) 04/21/24 14:58 HCG, Qual Negative (Negative) 04/21/24 14:58 Urine Color Yellow (Yellow) 04/21/24 15:35 Urine Appearance Cloudy (CLEAR) A 04/21/24 15:35 Urine pH 6.5 (5-7) 04/21/24 15:35 Ur Specific [place] 1.018 (1.005-1.030) 04/21/24 15:35 Urine Protein Negative (Negative) 04/21/24 15:35 Urine Glucose (UA) Negative (Normal) 04/21/24 15:35 Urine Ketones Negative (Negative) 04/21/24 15:35 Urine Blood Negative (Negative) 04/21/24 15:35 Urine Nitrate Negative (Negative) 04/21/24 15:35 Urine Bilirubin Negative (Negative) 04/21/24 15:35 Urine Urobilinogen 1.0 mg/dL (Negative) 04/21/24 15:35 Ur Leukocyte Esterase 2+ (Negative) A 04/21/24 15:35 Urine RBC 0-2 /hpf (0-2) 04/21/24 15:35 Urine WBC 11-20 /hpf (0-5) H 04/21/24 15:35 Ur Squamous Epith Cells 0-5 /hpf (0-5) 04/21/24 15:35 Amorphous Sediment Not Reportable 04/21/24 15:35 Urine Bacteria 1+ /hpf (NONE) H 04/21/24 15:35 Hyaline Casts 0.81 /lpf 04/21/24 15:35 Coronavirus (PCR) Negative (Negative) 04/21/24 15:30 Influenza A (PCR) Negative (Negative) 04/21/24 15:30 Influenza Type B (PCR) Negative (Negative) 04/21/24 15:30 RSV (PCR) Negative (Negative) 04/21/24 15:30 All radiology interpretation(s) finalized by discharge Discharge Plan Discharge Patient Disposition: Home Clinical Impression: Acute cystitis Condition: Stable Prescriptions: New cefdinir 300 mg capsule 300 mg PO BID 10 Days Qty: 20 0RF No Action medroxyprogesterone 150 mg/mL suspension 150 mg IM .Q3M acetaminophen [Tylenol Ex Str Rapid Release] 500 mg Tablet 1,000 mg PO Q6H PRN (Reason: Pain) Discharge Orders: Discharge ED (Routine); Ordered 04/21/24 Ordered By: Simon Fuentes Patient Instructions: Urinary Tract Infection in Women (ED) Activity Restrictions/Additional Instructions: Drink plenty of fluids. Take cefdinir as prescribed. Please return if you develop any persistent fevers, worsening pain, significant nausea and vomiting, or other concerning symptoms you may have. See attached patient instructions for further guidance. Follow-up closely with primary care for general reevaluation. Sign Out Sign Out Data: Patient Sign Out occurred on 04/21/24 at 17:07. Patient's care was discussed, and care was transferred from RALPH Posey to RALPH Moreno. Coding Level of Care Code ED Greeting Card Maker for Svetlana Alvarado
[2024-04-21] MEDS: acetaminophen 500 mg Tablet 1000 MG PO (15:20)
[2024-04-21 15:22] LABS: HCG, Serum Qual Negative (Negative)
[2024-04-21 15:24] LABS: Alanine Aminotransferase 20 U/L (0-33); Albumin Level 3.5 g/dL (3.5-5.2); Alkaline Phosphatase 111 U/L (35-105); Anion Gap 13.9 (5-19); Aspartate Amino Transferase 22 U/L (0-32); Blood Urea Nitrogen 11 mg/dL (6-20); Calcium 9.2 mg/dL (8.5-10.5); Carbon Dioxide 26 mmol/L (22-29); Chloride 99 mmol/L (98-107); Creatinine Clr Calc Pharmacy 151.7811; Globulin 3.6 g/dL (1.3-4.6); Glucose 147 mg/dL (65-115); Lipase 21 U/L (13-60); Osmolality Calculated 282 mOsm/kg (285-295); Potassium 3.9 mmol/L (3.5-5.1); Sodium 135 mmol/L (136-145); Total Bilirubin 0.2 mg/dL (0.15-1.2); Total Protein 7.1 g/dL (6.6-8.7)
[2024-04-21] MEDS: ondansetron 2 mg/ML SDV 2 mL 4 MG IVP (15:24)
[2024-04-21 15:25] LABS: Lactic Sepsis W/Reflex 1.9 mmol/L (0.5-2.2)
[2024-04-21] MEDS: morphine 4 mg/mL SDV 1 mL IVP (15:26)
[2024-04-21 16:07] LABS: Bilirubin Urine Negative (Negative); Blood Urine Negative (Negative); Glucose Urine UA Negative (Normal); Ketones Urine Negative (Negative); Leukocyte Esterase Urine 2+ (Negative); Nitrate Urine Negative (Negative); Protein Urine Negative (Negative); Specific Gravity, Urine 1.018 (1.005-1.030); Urine Appearance Cloudy (CLEAR); Urine Color Yellow (Yellow); pH Urine 6.5 (5-7)
[2024-04-21 16:13] LABS: Add Urine Microscopic? YES; Bacteria Urine 1+ /hpf; Hyaline Casts Urine 0.81 /lpf; RBC Urine 0-2 /hpf (0-2); Squamous Epithelial Cell Urine 0-5 /hpf (0-5)
[2024-04-21 16:36] LABS: Covid PCR NEGATIVE (Negative); Influenza A NEGATIVE (Negative); Influenza B NEGATIVE (Negative); Respiratory Syncytial Virus Ce NEGATIVE (Negative)
[2024-04-21 16:38] LABS: Add Urine Culture? No
[2024-04-21] MEDS: cefTRIAXone 1,000 mg SDV 1000 MG IVP (17:04)
== END 2024-04-21 17:56 | disposition home or self-care (01) ==
PROVIDERS: Emergency Medicine; Physician Assistant; Emergency Provider Physician Assistant
DX: N30.00 Acute cystitis without hematuria (principal); Z11.52 Encounter for screening for COVID-19
CPT/HCPCS: 0241U; 36415; 71045; 74177; 80053; 81001; 83605; 83690; 84703; 85025; 87086; 96374; 96375; 99285; J0696; J2270; J2405; Q9967

== ENCOUNTER 2024-05-14 18:29 | Emergency (ER) | payer MEDICAID, SELFPAY ==
[2024-05-14 19:38] VITALS: BP 118/77; PULSE 84; RESP 18; O2SAT 99; BMI 49.7
[2024-05-14 20:42] LABS: Basophils % 0.2 %; Eosinophils % 0.3 %; Hematocrit 47.4 % (36-47); Lymphocytes # 2.3 10^3/uL (0.8-4.8); Lymphocytes % 25.9 %; Mean Corpuscular HGB Conc 32.9 g/dL (30-55); Mean Corpuscular Hemoglobin 29.7 pg (27-33); Mean Corpuscular Volume 90.1 fl (85-98); Mean Platelet Volume 11.8 fL (7.4-10.4); Monocytes # 0.5 10^3/uL (0.2-0.9); Monocytes % 5.3 %; Neutrophils # 6.16 10^3/uL (1.8-7.7); Neutrophils % 68.1 %; Nucleated Red Blood Cells % 0 %; Platelet Count 284 10^3/cmm (157-399); Red Blood Count 5.26 10^6/uL (3.85-5.65); Red Cell Distribution Width 12.3 % (12.1-15.1); White Blood Count 9.05 10^3/uL (3.29-11.43)
[2024-05-14 20:59] LABS: Anion Gap 15.4 (5-19); Blood Urea Nitrogen 10 mg/dL (6-20); Calcium 10.1 mg/dL (8.5-10.5); Carbon Dioxide 28 mmol/L (22-29); Chloride 102 mmol/L (98-107); Creatinine Clr Calc Pharmacy 175.1502; Glomerular Filtration Rate 115.9 mL/min (90-130); Glucose 121 mg/dL (65-115); Osmolality Calculated 292 mOsm/kg (285-295); Potassium 4.4 mmol/L (3.5-5.1); Sodium 141 mmol/L (136-145)
[2024-05-14 22:28] VITALS: BP 122/81; PULSE 82; O2SAT 100
--- NOTE | 2024-05-14 22:29 | CTR_ITS ---
PROCEDURE INFORMATION: Exam: CT Abdomen And Pelvis With Contrast Exam date and time: 05/14/2024 11:02 PM Age: 33 years old Clinical indication: Abdominal pain; Generalized TECHNIQUE: Imaging protocol: Computed tomography of the abdomen and pelvis with contrast. Radiation optimization: All CT scans at this facility use at least one of these dose optimization techniques: automated exposure control; mA and/or kV adjustment per patient size (includes targeted exams where dose is matched to clinical indication); or iterative reconstruction. Contrast material: OMNI 350; Contrast volume: 100 ml; Contrast route: INTRAVENOUS (IV); COMPARISON: CT abdomen pelvis w con* [id number] 04/21/2024 4:35 PM RADIATION DOSE METRICS: Total DLP (mGy-cm): 1197.34 FINDINGS: Liver: Unchanged appearance of multiple right hepatic lobe hypodensities of indeterminate etiology. Gallbladder and biliary ducts: Normal. No calcified stones. No ductal dilation. Pancreas: Normal. No ductal dilation. Spleen: Normal. No splenomegaly. Adrenal glands: Normal. No mass. Kidneys and ureters: Bilateral renal cysts. Stomach and bowel: Colonic diverticulosis. No bowel obstruction. Appendix: The appendix is surgically absent. Intraperitoneal space: Unremarkable. No free air. No significant fluid collection. Vasculature: Unremarkable. No abdominal aortic aneurysm. Lymph nodes: Unremarkable. No enlarged lymph nodes. Urinary bladder: The urinary bladder is underdistended which limits its complete evaluation. Reproductive: Bilateral ovarian cystic changes. Bones/joints: Unremarkable. No acute fracture. Soft tissues: Midline ventral abdominal hernia containing fat. CT/CT abdomen pelvis w con* [id number] IMPRESSION: 1. Redemonstration of indeterminate right hepatic lobe lesions which can be further assessed with of the MRI of the abdomen with and without contrast. 2. Additional incidental/chronic findings as above. COMMENTS: Consistent with the [employer]'s Incidental Findings Committee white paper (J Am Kathleen Radiol 2018): Any incidental renal lesion less than 1 cm or classified as too small to characterize, or any incidental cystic renal lesion characterized as simple-appearing, is likely benign. No follow-up imaging is recommended for these lesions per consensus recommendations based on imaging criteria.
--- NOTE | 2024-05-14 22:30 | ED_ITS ---
HPI - Abdominal Pain 2 General: Chief Complaint: Abdominal Pain Stated Complaint: Abd pain v/n Time Seen by Provider: 05/14/24 21:59 History of Present Illness: Patient is a 33-year-old female who presents to the emergency department with complaints of abdominal pain, nausea vomiting diarrhea x 3 days. Patient was in contact with her GI office today recommended prompt evaluation. Denies fevers but has chills. Denies bloody stools or vomitus. Denies dysuria, frequency, urgency. Did have a urinary tract infection 2 weeks ago and was treated with cefdinir. She reports she completed this antibiotic Related Data Home Medications Medication Instructions Recorded Confirmed medroxyprogesterone 150 mg/mL 150 mg IM .Q3M 10/05/23 05/15/24 intramuscular suspension acetaminophen 500 mg tablet 1,000 mg PO Q6H PRN Pain 04/21/24 05/15/24 Previous Rx's Medication Instructions Recorded ondansetron 4 mg disintegrating 4 mg PO Q8H PRN nausea and 05/14/24 tablet vomiting 5 days #20 tabs sulfamethoxazole 800 1 tab PO BID 10 days #20 tabs 05/14/24 mg-trimethoprim 160 mg tablet (Bactrim DS) promethazine 12.5 mg rectal 12.5 mg CA TID #12 ea 05/15/24 suppository Allergies Allergy/AdvReac Type Severity Reaction Status Date / Time No Known Allergies Allergy Verified 04/21/24 14:46 Review of Systems 2 General: Reports: 10 or more systems reviewed and unremarkable except in HPI and below PFSH ED 2 PFSH: Medical History Hiatal hernia with gastroesophageal reflux BMI 50.0-59.9, adult Allergic rhinitis Surgical History No pertinent past surgical history Social History Smoking and tobacco/nicotine status: unknown if used tobacco/nicotine Second hand smoke exposure: No Alcohol intake: never Substance/Drug Use: never Physical Exam 2 Const: COMMON NORMALS: no acute distress, patient oriented x3 and alert G ENERAL APPEARANCE: cooperative ORIENTATION/CONSCIOUSNESS: Yes awake, Yes oriented to person, Yes oriented to place and Yes oriented to time Neck/C-Spine: COMMON NORMALS: full ROM GENERAL: Yes normal visual inspection Chest: COMMONS NORMALS: normal inspection of the chest Breast/axilla inspection: Yes no chest deformity, asymmetry, normal contours, no nodules, masses, tenderness Resp: COMMON NORMALS: normal respiratory effort, No retractions, No use of accessory muscles and clear to auscultation bilaterally EFFORT & INSPECTION: Yes able to speak in complete sentences and Yes symmetric chest movement A USCULTATION: clear to auscultation bilaterally Cardio: COMMON NORMALS: regular rate, regular rhythm and Peripheral pulses 2+ throughout RATE: regular rate RHYTHM: regular rhythm PERIPHERAL PULSES: Peripheral pulses 2+ throughout GI: COMMON NORMALS: Soft to palpation INSPECTION: Yes normal to inspection AUSCULTATION: Yes Hypoactive bowel sounds present PALPATION: Yes Soft to palpation, Yes Tenderness to palpation present (GI) (Diffuse), No Guarding due to palpation present (GI), No Rigid due to palpation and No Abdominal wall crepitus present RECTAL EXAM: deferred Extremity: COMMON NORMALS: normal to inspection GENERAL: Yes normal exam except as noted Neuro: COMMON NORMALS: patient oriented x3 SENSORIUM/ORIENTATION: Yes alert, Yes oriented to person, Yes oriented to place and Yes oriented to time CRANIAL NERVES: Yes CN normal except as noted Psych: COMMON NORMALS: mental status grossly normal, Normal thought process present, cooperative, activity/motor behavior normal, denies homicidal ideation and denies suicidal ideation THOUGHT PROCESS: Normal thought process present Course 2 Vital Signs: Vital signs: Vital Signs Pulse Rate 75 05/15/24 00:00 Respiratory Rate 18 05/14/24 19:38 Blood Pressure 122/81 05/14/24 22:28 Pulse Oximetry 99 05/15/24 00:00 Oxygen Delivery Me thod Room Air 05/14/24 22:28 MDM - Abdominal Pain Medical Decision Making Patient is a 33-year-old female that presents to the emergency department with complaints of low abdominal pain, nausea vomiting diarrhea. Onset of symptoms here in the last couple weeks intermittently but worse in the last 3 days. Patient was treated for urinary tract infection approximately 2 weeks ago but still has dysuria increased frequency and urgency. Here in the emergency department she underwent a laboratory evaluation that included a BC, CMP, lipase, urinalysis. The laboratory evaluation reveals no leukocytosis, anemias, thrombocytopenia, electrolyte abnormalities, renal or liver dysfunction. Furthermore her lipase is within normal limits. We did obtain a urinalysis which revealed white blood cells of 21-50, positive nitrates, positive leukoesterase and 4+ bacteria. She was treated last time with cefdinir and this time I am going to give her Bactrim. Culture is pending. She underwent a CT of the abdomen and pelvis. Which revealed numerous hepatic hypodensities. I have advised the patient that she needs to follow-up with her primary care doctor for further discussion and evaluation. She does have a third officer and I recommended she discuss this with them as well. For now we will going to discharge her home on Bactrim, Zofran, Phenergan for refractory nausea and vomiting. Patient is agreeable with plan and all questions were answered Lab Data 05/14/24 20:24 05/14/24 20:24 Labs/Radiology: Radiology Impressions Abdomen/Pelvis CT 05/14/24 22:29 IMPRESSION: 1. Redemonstration of indeterminate right hepatic lobe lesions which can be further assessed with of the MRI of the abdomen with and without contrast. 2. Additional incidental/chronic findings as above. COMMENTS: Consistent with the [employer]'s Incidental Findings Committee white paper (J Am Kathleen Radiol 2018): Any incidental renal lesion less than 1 cm or classified as too small to characterize, or any incidental cystic renal lesion characterized as simple-appearing, is likely benign. No follow-up imaging is recommended for these lesions per consensus recommendations based on imaging criteria. Laboratory Results WBC 9.05 10^3/uL (3.29-11.43) 05/14/24 20:24 RBC 5.26 10^6/uL (3.85-5.65) 05/14/24 20:24 Hgb 15.60 g/dL (11.27-16.99) 05/14/24 20:24 Hct 47.4 % (36-47) H 05/14/24 20:24 MCV 90.1 fl (85-98) 05/14/24 20:24 MCH 29.7 pg (27-33) 05/14/24 20:24 MCHC 32.9 g/dL (30-55) 05/14/24 20:24 RDW 12.3 % (12.1-15.1) 05/14/24 20:24 Plt Count 284 10^3/cmm (157-399) 05/14/24 20:24 MPV 11.8 fL (7.4-10.4) H 05/14/24 20:24 Neut % (Auto) 68.1 % 05/14/24 20:24 Lymph % (Auto) 25.9 % 05/14/24 20:24 Spencer % (Auto) 5.3 % 05/14/24 20:24 Eos % (Auto) 0.3 % 05/14/24 20:24 Baso % (Auto) 0.2 % 05/14/24 20:24 Neut # (Auto) 6.16 10^3/uL (1.8-7.7) 05/14/24 20: Lymph # (Auto) 2.3 10^3/uL (0.8-4.8) 05/14/24 20:24 Spencer # (Auto) 0.5 10^3/uL (0.2-0.9) 05/14/24 20:24 Eos # (Auto) 0.0 10^3/uL (0.0-0.8) 05/14/24 20:24 Baso # (Auto) 0.0 10^3/uL (0.0-0.1) 05/14/24 20: Nucleated RBC % (auto) 0 % 05/14/24: Nucleated RBCs # 0.0 /100WBC 05/14/24 20:24 Sodium 141 mmol/L (136-145) 05/14/24 20:24 Potassium 4.4 mmol/L (3.5-5.1) 05/14/24 20:24 Chloride 102 mmol/L (98-107) 05/14/24 20:24 Carbon Dioxide 28 mmol/L (22-29) 05/14/24 20:24 Anion Gap 15.4 (5-19) 05/14/24 20:24 BUN 10 mg/dL (6-20) 05/14/24 20:24 Creatinine 0.6 mg/dL (0.5-0.9) 05/14/24 20:24 GFR Calculation 115.9 mL/min (90-130) 05/14/24 20:24 Glucose 121 mg/dL (65-115) H 05/14/24 20:24 Calculated Osmolality 292 mOsm/kg (285-295) 05/14/24 20:24 Calcium 10.1 mg/dL (8.5-10.5) 05/14/24 20:24 Lipase 18 U/L (13-60) 05/14/24 20:24 Urine Color Yellow (Yellow) 05/14/24 22:21 Urine Appearance Cloudy (CLEAR) A 05/14/24 22:21 Urine pH 6.5 (5-7) 05/14/24 22:21 Ur Specific Bynum 1.028 (1.005-1.030) 05/14/24 22:21 Urine Protein 1+ (Negative) A 05/14/24 22:21 Urine Glucose (UA) Negative (Normal) 05/14/24 22:21 Urine Ketones 1+ (Negative) H 05/14/24 22:21 Urine Blood Non-haemolysed trace (Negative) 05/14/24 22:21 Urine Nitrate Negative (Negative) 05/14/24 22:21 Urine Bilirubin Negative (Negative) 05/14/24 22:21 Urine Urobilinogen 1.0 mg/dL (Negative) 05/14/24 22:21 Ur Leukocyte Esterase 1+ (Negative) A 05/14/24 22:21 Urine RBC 0-2 /hpf (0-2) 05/14/24 22:21 Urine WBC 21-50 /hpf (0-5) H 05/14/24 22:21 Ur Squamous Epith Cells 21-50 /hpf (0-5) 05/14/24 22:21 Amorphous Sediment Not Reportable 05/14/24 22:21 Urine Bacteria 4+ /hpf (NONE) H 05/14/24 22:21 Hyaline Casts 5.36 /lpf 05/14/24 22:21 Urine Mucus 1+ /hpf 05/14/24 22:21 All radiology interpretation(s) finalized by discharge Discharge Plan Discharge Patient Disposition: Home Clinical Impression: Urinary tract infection Condition: Stable Prescriptions: New sulfamethoxazole-trimethoprim [Bactrim DS] 800-160 mg tablet 1 tab PO BID 10 Days Qty: 20 0RF ondansetron 4 mg tablet,disintegrating 4 mg PO Q8H PRN (Reason: nausea and vomiting) 5 Days Qty: 20 0RF promethazine 12.5 mg suppository 12.5 mg CA TID Qty: 12 0RF Rx Instructions: Use if not tolerating the oral antiemetics No Action medroxyprogesterone 150 mg/mL suspension 150 mg IM .Q3M acetaminophen [Tylenol Ex Str Rapid Release] 500 mg Tablet 1,000 mg PO Q6H PRN (Reason: Pain) Discharge Orders: Discharge ED (Routine); Ordered 05/15/24 Ordered By: Marika Cho Referrals: Fatuma Bernard, [employer] SUPERINTENDENT [Primary Care Provider] - Discharge Diet: Advance as tolerated Patient Instructions: Urinary Tract Infection in Women (DC), Opioid Safety, Pain Management Activity Restrictions/Additional Instructions: Please follow-up with your primary care doctor as well as GI specialist as planned. I have given you Zofran and Phenergan. Zofran is an oral medication that will help with nausea and vomiting. If you are not tolerating this you can trial the Phenergan suppository. I have also given you a medication Bactrim for urinary tract infection. Please take this medication as prescribed Please return to the emergency department as needed for new, concerning, worsening symptoms Coding Level of Care Code ED [employer] Equipment [employer] for Svetlana Alvarado
[2024-05-14 22:35] LABS: Bilirubin Urine Negative (Negative); Blood Urine Non-haemolysed trace (Negative); Glucose Urine UA Negative (Normal); Ketones Urine 1+ (Negative); Leukocyte Esterase Urine 1+ (Negative); Nitrate Urine Negative (Negative); Protein Urine 1+ (Negative); Specific Gravity, Urine 1.028 (1.005-1.030); Urine Appearance Cloudy (CLEAR); Urine Color Yellow (Yellow); pH Urine 6.5 (5-7)
[2024-05-14 22:39] LABS: Add Urine Microscopic? YES; Bacteria Urine 4+ /hpf; Hyaline Casts Urine 5.36 /lpf; RBC Urine 0-2 /hpf (0-2); Squamous Epithelial Cell Urine 21-50 /hpf (0-5); Universal Test for UA Present (0); WBC Urine 21-50 /hpf (0-5)
[2024-05-14 22:47] LABS: Lipase 18 U/L (13-60)
[2024-05-14 22:58] LABS: Add Urine Culture? No; Mucus Urine 1+ /hpf
[2024-05-14] MEDS: iohexol 350 mg/mL 500 mL Btl (per mL) IV (23:04)
[2024-05-14] MEDS: ondansetron 4 MG Tablet PO (23:05)
[2024-05-14] MEDS: sulfamethoxazole-trimeth DS 160-800 mg Tablet 1 TAB PO (23:21)
[2024-05-14] MEDS: ondansetron 2 mg/ML SDV 2 mL 4 MG IVP (23:21)
[2024-05-15] VITALS: PULSE 75; O2SAT 99
== END 2024-05-15 01:44 | disposition home or self-care (01) ==
PROVIDERS: Emergency Medicine; Emergency Provider Nurse Practitioner; PCP Nurse Practitioner Family
DX: N39.0 Urinary tract infection, site not specified (principal)
CPT/HCPCS: 36415; 74177; 80048; 81001; 83690; 85025; 96374; 99285; J2405; Q0162

== ENCOUNTER 2024-05-15 12:04 | Emergency (ER) | payer MEDICAID, SELFPAY ==
[2024-05-15 12:30] VITALS: BP 125/82; PULSE 93; RESP 16; TEMP 36.8; O2SAT 98; BMI 49.7
[2024-05-15 13:21] LABS: Basophils % 0.2 %; Eosinophils % 0.1 %; Hematocrit 45.6 % (36-47); Lymphocytes # 1.3 10^3/uL (0.8-4.8); Mean Corpuscular HGB Conc 33.1 g/dL (30-55); Mean Corpuscular Hemoglobin 29.6 pg (27-33); Mean Corpuscular Volume 89.4 fl (85-98); Mean Platelet Volume 11.8 fL (7.4-10.4); Monocytes # 0.3 10^3/uL (0.2-0.9); Monocytes % 3.9 %; Neutrophils # 6.95 10^3/uL (1.8-7.7); Neutrophils % 80.6 %; Nucleated Red Blood Cells % 0 %; Platelet Count 270 10^3/cmm (157-399); Red Cell Distribution Width 12.1 % (12.1-15.1); White Blood Count 8.64 10^3/uL (3.29-11.43)
[2024-05-15 13:46] LABS: Alanine Aminotransferase 21 U/L (0-33); Alkaline Phosphatase 106 U/L (35-105); Aspartate Amino Transferase 15 U/L (0-32); Blood Urea Nitrogen 9 mg/dL (6-20); Calcium 9.8 mg/dL (8.5-10.5); Carbon Dioxide 26 mmol/L (22-29); Chloride 101 mmol/L (98-107); Creatinine Clr Calc Pharmacy 175.1502; Globulin 3.8 g/dL (1.3-4.6); Glomerular Filtration Rate 115.9 mL/min (90-130); Glucose 98 mg/dL (65-115); Lipase 21 U/L (13-60); Osmolality Calculated 287 mOsm/kg (285-295); Sodium 139 mmol/L (136-145); Total Bilirubin 0.6 mg/dL (0.15-1.2); Total Protein 7.8 g/dL (6.6-8.7)
[2024-05-15 16:02] LABS: Bilirubin Urine 1+ (Negative); Blood Urine Negative (Negative); Glucose Urine UA Negative (Normal); Ketones Urine 2+ (Negative); Leukocyte Esterase Urine Negative (Negative); Nitrate Urine Negative (Negative); Protein Urine 1+ (Negative); Urine Appearance Cloudy (CLEAR); Urine Color Dark Yellow (Yellow)
[2024-05-15 16:07] LABS: Bacteria Urine 1+ /hpf; Hyaline Casts Urine 7.85 /lpf; Squamous Epithelial Cell Urine 21-50 /hpf (0-5)
[2024-05-15 16:08] LABS: Amphetamines Screen Urine Negative (Negative); Barbiturates Screen Urine Negative (Negative); Benzodiazepines Screen Urine Positive (Negative); Cocaine Screen Urine Negative (Negative); Opiate Screen Urine Negative (Negative); PCP Screen Urine Negative (Negative); THC Screen Urine Negative (Negative)
[2024-05-15 16:17] LABS: Add Urine Culture? No; Specific Gravity, Urine 1.036 (1.005-1.030)
--- NOTE | 2024-05-15 16:33 | ED_ITS ---
Documented by User: RALPH Posey 05/15/24 16:48 HPI - Nausea/Vomiting/Diarrhea 2 General: Chief complaint: Urogenital-Female Stated complaint: vomitting Time Seen by Provider: 05/15/24 15:41 Source: patient Mode of arrival: ambulatory Limitations: no limitations History of Present Illness: Patient is a 33-year-old female presents to ED today with complaints of continued nausea and vomiting. Patient was seen here in our facility yesterday with complaints of abdominal pain, nausea, vomiting. She was seen earlier this month with complaints of fever and abdominal pain. She was noted at that time with a urinalysis that was suspicious for cystitis. She was placed on Cefdinir. Culture from her urine on that visit came back with normal heriberto. She was seen yesterday and given Bactrim for concerns of UTI. Her UA yesterday was contaminated with 21-50 squamous cells. She did have CT scan yesterday. She does have known ill-defined hypodense liver lesions that were found on her CT scan 2 visits ago. These were unchanged on CT scan yesterday. She has never had abnormal LFTs or elevated white count. She was febrile on her ED visit on 04/21 but has been afebrile since. Patient today is complaining of pain to her left upper quadrant and left flank. Her main concern is nausea and vomiting. MD elicited complaint: nausea, vomiting and abdominal pain Onset (ago): day(s) Associated nausea: Yes Associated abdominal pain: Yes Location of pain: LUQ and L flank Pain consistency: constant Severity: moderate Exacerbating factors: none Relieving factors: eating Associated symtoms: Reports nausea; Denies chest pain, dizziness, dysuria, fatigue, headache(s) or malaise Related Data Home Medications Medication Instructions Recorded Confirmed medroxyprogesterone 150 mg/mL 150 mg IM .Q3M 10/05/23 05/15/24 intramuscular suspension acetaminophen 500 mg tablet 1,000 mg PO Q6H PRN Pain 04/21/24 05/15/24 Previous Rx's Medication Instructions Recorded ondansetron 4 mg disintegrating 4 mg PO Q8H PRN nausea and 05/14/24 tablet vomiting 5 days #20 tabs metoclopramide HCl 10 mg tablet 10 mg PO Q6H PRN nausea and 05/15/24 vomiting #20 tabs promethazine 12.5 mg rectal 12.5 mg GA TID #12 ea 05/15/24 suppository Allergies Allergy/AdvReac Type Severity Reaction Status Date / Time No Known Allergies Allergy Verified 04/21/24 14:46 Review of Systems 2 Const: Denies: fever(s), chills, body aches, fatigue or malaise Card: Denies: chest pain Resp: Denies: dyspnea GI: Reports: abdominal pain, nausea and vomiting; Denies: hematemesis, hematochezia or melena : Denies: flank pain, difficulty voiding, dysuria, urinary frequency, urinary urgency or urinary hesitancy Musc: Denies: neck pain, back pain, extremity pain, extremity swelling, joint pain or joint swelling Skin/Breast: Denies: rash Neuro: Denies: headache(s), numbness in extremities, weakness in extremities, sensory changes or dizziness PFSH ED 2 PFSH: Medical History Hiatal hernia with gastroesophageal reflux BMI 50.0-59.9, adult Allergic rhinitis Surgical History No pertinent past surgical history Social History Smoking and tobacco/nicotine status: unknown if used tobacco/nicotine Second hand smoke exposure: No Alcohol intake: never Substance/Drug Use: never Female Reproductive History: Date of last menstrual period: 05/03/24 Physical Exam 2 Const: COMMON NORMALS: patient oriented x3, no limitations, alert and well nourished GENERAL APPEARANCE: cooperative NUTRITIONAL APPEARANCE: obese (BMI 49.8) ORIENTATION/CONSCIOUSNESS: Yes awake, Yes oriented to person, Yes oriented to place and Yes oriented to time Eye: COMMON NORMALS: no scleral icterus Resp: COMMON NORMALS: normal respiratory effort and clear to auscultation bilaterally AUSCULTATION: clear to auscultation bilaterally Cardio: COMMON NORMALS: regular rate and regular rhythm RATE: regular rate RHYTHM: regular rhythm GI: COMMON NORMALS: Normal to inspection, nondistended, normoactive bowel sounds present, Soft to palpation and no masses INSPECTION: Yes normal to inspection AUSCULTATION: Yes normoactive bowel sounds PALPATION: Yes Soft to palpation, Yes Tenderness to palpation present (GI) (mild diffusely but mainly LUQ/L flank), No Guarding due to palpation present (GI) and No Rigid due to palpation : BLADDER/KIDNEY EXAM: Yes CVA tenderness on the left Back/Pelvis: COMMON NORMALS: thoracic and lumbar spine normal to inspection and no thoracic nor lumbar tenderness GENERAL BACK: Yes CVA tenderness Extremity: GENERAL: Yes normal exam except as noted Neuro: COMMON NORMALS: patient oriented x3, moves all extremities, no focal motor deficits and no sensory deficits noted SENSORIUM/ORIENTATION: Yes alert, Yes oriented to person, Yes oriented to place and Yes oriented to time Skin: COMMON NORMALS: no rashes or lesions noted GENERAL SKIN EXAM: no rashes or lesions noted Course 2 Vital Signs: Vital signs: Vital Signs Temperature 98.2 F 05/15/24 12:30 Pulse Rate 106 H 05/15/24 19:41 Respiratory Rate 16 05/15/24 12:30 Blood Pressure 148/94 05/15/24 19:41 Pulse Oximetry 92 05/15/24 19:41 Oxygen Delivery Me thod Room Air 05/15/24 12:30 MDM - Nausea/Vomiting/Diarrhea Lab Data 05/15/24 13:04 05/15/24 13:04 Laboratory Results WBC 8.64 10^3/uL (3.29-11.43) 05/15/24 13:04 RBC 5.10 10^6/uL (3.85-5.65) 05/15/24 13:04 Hgb 15.10 g/dL (11.27-16.99) 05/15/24 13:04 Hct 45.6 % (36-47) 05/15/24 13:04 MCV 89.4 fl (85-98) 05/15/24 13:04 MCH 29.6 pg (27-33) 05/15/24 13:04 MCHC 33.1 g/dL (30-55) 05/15/24 13:04 RDW 12.1 % (12.1-15.1) 05/15/24 13:04 Plt Count 270 10^3/cmm (157-399) 05/15/24 13:04 MPV 11.8 fL (7.4-10.4) H 05/15/24 13:04 Neut % (Auto) 80.6 % 05/15/24 13:04 Lymph % (Auto) 15.0 % 05/15/24 13:04 [place] % (Auto) 3.9 % 05/15/24 13:04 Eos % (Auto) 0.1 % 05/15/24 13:04 Baso % (Auto) 0.2 % 05/15/24 13:04 Neut # (Auto) 6.95 10^3/uL (1.8-7.7) 05/15/24 13:04 Lymph # (Auto) 1.3 10^3/uL (0.8-4.8) 05/15/24 13:04 [place] # (Auto) 0.3 10^3/uL (0.2-0.9) 05/15/24 13:04 Eos # (Auto) 0.0 10^3/uL (0.0-0.8) 05/15/24 13:04 Baso # (Auto) 0.0 10^3/uL (0.0-0.1) 05/15/24 13:04 Nucleated RBC % (auto) 0 % 05/15/24 13:04 Nucleated RBCs # 0.0 /100WBC 05/15/24 13:04 Sodium 139 mmol/L (136-145) 05/15/24 13:04 Potassium 4.0 mmol/L (3.5-5.1) 05/15/24 13:04 Chloride 101 mmol/L (98-107) 05/15/24 13:04 Carbon Dioxide 26 mmol/L (22-29) 05/15/24 13:04 Anion Gap 16.0 (5-19) 05/15/24 13:04 BUN 9 mg/dL (6-20) 05/15/24 13:04 Creatinine 0.6 mg/dL (0.5-0.9) 05/15/24 13:04 GFR Calculation 115.9 mL/min (90-130) 05/15/24 13:04 Glucose 98 mg/dL (65-115) 05/15/24 13:04 Calculated Osmolality 287 mOsm/kg (285-295) 05/15/24 13:04 Lactic Acid 1.0 mmol/L (0.5-2.2) 05/15/24 13:04 Calcium 9.8 mg/dL (8.5-10.5) 05/15/24 13:04 Total Bilirubin 0.6 mg/dL (0.15-1.2) 05/15/24 13:04 AST 15 U/L (0-32) 05/15/24 13:04 ALT 21 U/L (0-33) 05/15/24 13:04 Alkaline Phosphatase 106 U/L (35-105) H 05/15/24 13:04 Total Protein 7.8 g/dL (6.6-8.7) 05/15/24 13:04 Albumin 4.0 g/dL (3.5-5.2) 05/15/24 13:04 Globulin 3.8 g/dL (1.3-4.6) 05/15/24 13:04 Lipase 21 U/L (13-60) 05/15/24 13:04 Urine Color Dark yellow (Yellow) A 05/15/24 17:04 Urine Appearance Cloudy (CLEAR) A 05/15/24 17:04 Urine pH 6.0 (5-7) 05/15/24 17:04 Ur Specific [place] 1.038 (1.005-1.030) H 05/15/24 17:04 Urine Protein 1+ (Negative) A 05/15/24 17:04 Urine Glucose (UA) Negative (Normal) 05/15/24 17:04 Urine Ketones 3+ (Negative) H 05/15/24 17:04 Urine Blood Negative (Negative) 05/15/24 17:04 Urine Nitrate Negative (Negative) 05/15/24 17:04 Urine Bilirubin Negative (Negative) 05/15/24 17:04 Urine Urobilinogen 1.0 mg/dL (Negative) 05/15/24 17:04 Ur Leukocyte Esterase Negative (Negative) 05/15/24 17:04 Urine RBC 0-2 /hpf (0-2) 05/15/24 17:04 Urine WBC 0-5 /hpf (0-5) 05/15/24 17:04 Ur Squamous Epith Cells 0-5 /hpf (0-5) 05/15/24 17:04 Amorphous Sediment Not Reportable 05/15/24 15:39 Urine Bacteria None seen /hpf (NONE) 05/15/24 17:04 Hyaline Casts 30.18 /lpf 05/15/24 17:04 Urine Opiates Screen Negative ng/mL (Negative) 05/15/24 15:39 Ur Barbiturates Screen Negative ng/mL (Negative) 05/15/24 15:39 Ur Phencyclidine Scrn Negative ng/mL (Negative) 05/15/24 15:39 Ur Amphetamines Screen Negative ng/mL (Negative) 05/15/24 15:39 U Benzodiazepines Scrn Positive ng/mL (Negative) H 05/15/24 15:39 Urine Cocaine Screen Negative ng/mL (Negative) 05/15/24 15:39 U Marijuana (THC) Screen Negative ng/mL (Negative) 05/15/24 15:39 Discharge Plan Discharge Patient Disposition: Home Clinical Impression: Nausea and vomiting Qualifiers: Vomiting type: unspecified Qualified Code(s): R11.2 - Nausea with vomiting, unspecified Condition: Stable Prescriptions: New metoclopramide HCl 10 mg tablet 10 mg PO Q6H PRN (Reason: nausea and vomiting) Qty: 20 0RF Discontinued sulfamethoxazole-trimethoprim [Bactrim DS] 800-160 mg tablet 1 tab PO BID 10 Days Qty: 20 0RF No Action medroxyprogesterone 150 mg/mL suspension 150 mg IM .Q3M ondansetron 4 mg tablet,disintegrating 4 mg PO Q8H PRN (Reason: nausea and vomiting) 5 Days Qty: 20 0RF promethazine 12.5 mg suppository 12.5 mg GA TID Qty: 12 0RF Rx Instructions: Use if not tolerating the oral antiemetics acetaminophen [Tylenol Ex Str Rapid Release] 500 mg Tablet 1,000 mg PO Q6H PRN (Reason: Pain) Discharge Orders: Discharge ED (Routine); Ordered 05/15/24 Ordered By: Simon Fuentes Referrals: Fatuma Bernard, COPYWRITER [Primary Care Provider] - Patient Instructions: Acute Nausea and Vomiting (ED) Activity Restrictions/Additional Instructions: Reglan for your nausea. Drink plenty of fluids. Please follow-up with primary care in regards to CT findings and for general reevaluation. Please return if you continue to have vomiting, develop any high fevers or severe abdominal pain, or other concerning symptoms. You may also stop taking your Bactrim as there are no signs of urinary tract infection on cath urinalysis today. Sign Out Sign Out Data: Patient Sign Out occurred on 05/15/24 at 17:26. Patient's care was discussed, and care was transferred from RALPH Posey to RALPH Moreno. Coding Level of Care Code ED Director Digital Sales for Svetlana Fwd Documented by User: RALPH Moreno 05/15/24 19:49 HPI - Nausea/Vomiting/Diarrhea 2 General: Chief complaint: Urogenital-Female Stated complaint: vomitting Time Seen by Provider: 05/15/24 15:41 Related Data Home Medications Medication Instructions Recorded Confirmed medroxyprogesterone 150 mg/mL 150 mg IM .Q3M 10/05/23 05/15/24 intramuscular suspension acetaminophen 500 mg tablet 1,000 mg PO Q6H PRN Pain 04/21/24 05/15/24 Previous Rx's Medication Instructions Recorded ondansetron 4 mg disintegrating 4 mg PO Q8H PRN nausea and 05/14/24 tablet vomiting 5 days #20 tabs metoclopramide HCl 10 mg tablet 10 mg PO Q6H PRN nausea and 05/15/24 vomiting #20 tabs promethazine 12.5 mg rectal 12.5 mg GA TID #12 ea 05/15/24 suppository Allergies Allergy/AdvReac Type Severity Reaction Status Date / Time No Known Allergies Allergy Verified 04/21/24 14:46 PFSH ED 2 PFSH: Medical History Hiatal hernia with gastroesophageal reflux BMI 50.0-59.9, adult Allergic rhinitis Surgical History No pertinent past surgical history Social History Smoking and tobacco/nicotine status: unknown if used tobacco/nicotine Second hand smoke exposure: No Alcohol intake: never Substance/Drug Use: never Course 2 Vital Signs: Vital signs: Vital Signs Temperature 98.2 F 05/15/24 12:30 Pulse Rate 106 H 05/15/24 19:41 Respiratory Rate 16 05/15/24 12:30 Blood Pressure 148/94 05/15/24 19:41 Pulse Oximetry 92 05/15/24 19:41 Oxygen Delivery Me thod Room Air 05/15/24 12:30 MDM - Nausea/Vomiting/Diarrhea Medical Decision Making This patient presented for the second time in 48 hours, complaining of nausea and vomiting. She had labs and repeat CT done yesterday, CT showing recurrence of on diagnostic hepatic hypodensities, of which we spoke to her about an we will have her follow-up with primary care for reevaluation and potentially MRI. Do not believe that this is the cause of her nausea vomiting today with her normal lab workup, specifically normal LFTs and total bilirubin. Today labs unchanged from prior, she has had prior urinalysis that both have been contaminated, we did a straight cath today and found there to be no infectious parameters thus we will stop the Bactrim. This could be explaining her nausea and vomiting, this also could be viral. Initially we tried Zofran, this did not help but after she received Reglan states that she was feeling good enough to go home. Because of this we will treat with Reglan at home and have her drink plenty of fluids. Also encouraged her to closely follow-up with primary care in regards to CT findings and for routine reevaluation. Discussed return precautions with her, she endorses understanding. Lab Data 05/15/24 13:04 05/15/24 13:04 Laboratory Results WBC 8.64 10^3/uL (3.29-11.43) 05/15/24 13:04 RBC 5.10 10^6/uL (3.85-5.65) 05/15/24 13:04 Hgb 15.10 g/dL (11.27-16.99) 05/15/24 13:04 Hct 45.6 % (36-47) 05/15/24 13:04 MCV 89.4 fl (85-98) 05/15/24 13:04 MCH 29.6 pg (27-33) 05/15/24 13:04 MCHC 33.1 g/dL (30-55) 05/15/24 13:04 RDW 12.1 % (12.1-15.1) 05/15/24 13:04 Plt Count 270 10^3/cmm (157-399) 05/15/24 13:04 MPV 11.8 fL (7.4-10.4) H 05/15/24 13:04 Neut % (Auto) 80.6 % 05/15/24 13:04 Lymph % (Auto) 15.0 % 05/15/24 13:04 [place] % (Auto) 3.9 % 05/15/24 13:04 Eos % (Auto) 0.1 % 05/15/24 13:04 Baso % (Auto) 0.2 % 05/15/24 13:04 Neut # (Auto) 6.95 10^3/uL (1.8-7.7) 05/15/24 13:04 Lymph # (Auto) 1.3 10^3/uL (0.8-4.8) 05/15/24 13:04 [place] # (Auto) 0.3 10^3/uL (0.2-0.9) 05/15/24 13:04 Eos # (Auto) 0.0 10^3/uL (0.0-0.8) 05/15/24 13:04 Baso # (Auto) 0.0 10^3/uL (0.0-0.1) 05/15/24 13:04 Nucleated RBC % (auto) 0 % 05/15/24 13:04 Nucleated RBCs # 0.0 /100WBC 05/15/24 13:04 Sodium 139 mmol/L (136-145) 05/15/24 13:04 Potassium 4.0 mmol/L (3.5-5.1) 05/15/24 13:04 Chloride 101 mmol/L (98-107) 05/15/24 13:04 Carbon Dioxide 26 mmol/L (22-29) 05/15/24 13:04 Anion Gap 16.0 (5-19) 05/15/24 13:04 BUN 9 mg/dL (6-20) 05/15/24 13:04 Creatinine 0.6 mg/dL (0.5-0.9) 05/15/24 13:04 GFR Calculation 115.9 mL/min (90-130) 05/15/24 13:04 Glucose 98 mg/dL (65-115) 05/15/24 13:04 Calculated Osmolality 287 mOsm/kg (285-295) 05/15/24 13:04 Lactic Acid 1.0 mmol/L (0.5-2.2) 05/15/24 13:04 Calcium 9.8 mg/dL (8.5-10.5) 05/15/24 13:04 Total Bilirubin 0.6 mg/dL (0.15-1.2) 05/15/24 13:04 AST 15 U/L (0-32) 05/15/24 13:04 ALT 21 U/L (0-33) 05/15/24 13:04 Alkaline Phosphatase 106 U/L (35-105) H 05/15/24 13:04 Total Protein 7.8 g/dL (6.6-8.7) 05/15/24 13:04 Albumin 4.0 g/dL (3.5-5.2) 05/15/24 13:04 Globulin 3.8 g/dL (1.3-4.6) 05/15/24 13:04 Lipase 21 U/L (13-60) 05/15/24 13:04 Urine Color Dark yellow (Yellow) A 05/15/24 17:04 Urine Appearance Cloudy (CLEAR) A 05/15/24 17:04 Urine pH 6.0 (5-7) 05/15/24 17:04 Ur Specific [place] 1.038 (1.005-1.030) H 05/15/24 17:04 Urine Protein 1+ (Negative) A 05/15/24 17:04 Urine Glucose (UA) Negative (Normal) 05/15/24 17:04 Urine Ketones 3+ (Negative) H 05/15/24 17:04 Urine Blood Negative (Negative) 05/15/24 17:04 Urine Nitrate Negative (Negative) 05/15/24 17:04 Urine Bilirubin Negative (Negative) 05/15/24 17:04 Urine Urobilinogen 1.0 mg/dL (Negative) 05/15/24 17:04 Ur Leukocyte Esterase Negative (Negative) 05/15/24 17:04 Urine RBC 0-2 /hpf (0-2) 05/15/24 17:04 Urine WBC 0-5 /hpf (0-5) 05/15/24 17:04 Ur Squamous Epith Cells 0-5 /hpf (0-5) 05/15/24 17:04 Amorphous Sediment Not Reportable 05/15/24 15:39 Urine Bacteria None seen /hpf (NONE) 05/15/24 17:04 Hyaline Casts 30.18 /lpf 05/15/24 17:04 Urine Opiates Screen Negative ng/mL (Negative) 05/15/24 15:39 Ur Barbiturates Screen Negative ng/mL (Negative) 05/15/24 15:39 Ur Phencyclidine Scrn Negative ng/mL (Negative) 05/15/24 15:39 Ur Amphetamines Screen Negative ng/mL (Negative) 05/15/24 15:39 U Benzodiazepines Scrn Positive ng/mL (Negative) H 05/15/24 15:39 Urine Cocaine Screen Negative ng/mL (Negative) 05/15/24 15:39 U Marijuana (THC) Screen Negative ng/mL (Negative) 05/15/24 15:39 No radiology studies performed this visit Discharge Plan Discharge Patient Disposition: Home Clinical Impression: Nausea and vomiting Qualifiers: Vomiting type: unspecified Qualified Code(s): R11.2 - Nausea with vomiting, unspecified Condition: Stable Prescriptions: New metoclopramide HCl 10 mg tablet 10 mg PO Q6H PRN (Reason: nausea and vomiting) Qty: 20 0RF Discontinued sulfamethoxazole-trimethoprim [Bactrim DS] 800-160 mg tablet 1 tab PO BID 10 Days Qty: 20 0RF No Action medroxyprogesterone 150 mg/mL suspension 150 mg IM .Q3M ondansetron 4 mg tablet,disintegrating 4 mg PO Q8H PRN (Reason: nausea and vomiting) 5 Days Qty: 20 0RF promethazine 12.5 mg suppository 12.5 mg GA TID Qty: 12 0RF Rx Instructions: Use if not tolerating the oral antiemetics acetaminophen [Tylenol Ex Str Rapid Release] 500 mg Tablet 1,000 mg PO Q6H PRN (Reason: Pain) Discharge Orders: Discharge ED (Routine); Ordered 05/15/24 Ordered By: Simon Fuentes Referrals: Fatuma Bernard, COPYWRITER [Primary Care Provider] - Patient Instructions: Acute Nausea and Vomiting (ED) Activity Restrictions/Additional Instructions: Reglan for your nausea. Drink plenty of fluids. Please follow-up with primary care in regards to CT findings and for general reevaluation. Please return if you continue to have vomiting, develop any high fevers or severe abdominal pain, or other concerning symptoms. You may also stop taking your Bactrim as there are no signs of urinary tract infection on cath urinalysis today. Sign Out Sign Out Data: Patient Sign Out occurred on 05/15/24 at 17:26. Patient's care was discussed, and care was transferred from RALPH Posey to RALPH Moreno. Coding Level of Care Code ED Director Digital Sales for Svetlana Alvarado
[2024-05-15] MEDS: ondansetron 2 mg/ML SDV 2 mL 4 MG IVP (16:59)
[2024-05-15 17:26] LABS: Bilirubin Urine Negative (Negative); Blood Urine Negative (Negative); Glucose Urine UA Negative (Normal); Ketones Urine 3+ (Negative); Leukocyte Esterase Urine Negative (Negative); Nitrate Urine Negative (Negative); Protein Urine 1+ (Negative); Urine Appearance Cloudy (CLEAR); Urine Color Dark Yellow (Yellow)
[2024-05-15 17:30] LABS: Add Urine Microscopic? YES; Bacteria Urine None Seen /hpf; Hyaline Casts Urine 30.18 /lpf; RBC Urine 0-2 /hpf (0-2); Squamous Epithelial Cell Urine 0-5 /hpf (0-5); WBC Urine 0-5 /hpf (0-5)
[2024-05-15 18:14] LABS: Specific Gravity, Urine 1.038 (1.005-1.030)
[2024-05-15 18:15] LABS: Add Urine Culture? No
[2024-05-15 18:18] VITALS: PULSE 94; O2SAT 96
--- NOTE | 2024-05-15 18:54 | PC.NURSE ---
Assumed care from Karen LO at this time.
[2024-05-15 18:58] VITALS: PULSE 103; O2SAT 95
[2024-05-15] MEDS: metoclopramide 5 mg/mL SDV 2 mL 10 MG IVP (19:02)
[2024-05-15 19:41] VITALS: BP 148/94; PULSE 106; O2SAT 92
== END 2024-05-15 19:34 | disposition home or self-care (01) ==
PROVIDERS: Emergency Medicine; Physician Assistant; Emergency Provider Physician Assistant; PCP Nurse Practitioner Family
DX: R11.2 Nausea with vomiting, unspecified (principal)
CPT/HCPCS: 36415; 80053; 80306; 81001; 83605; 83690; 85025; 96374; 96375; 99284; J2405; J2765

== ENCOUNTER 2024-06-05 16:12 | Outpatient (CLI) | payer MEDICAID, SELFPAY ==
[2024-06-05 17:50] LABS: Alanine Aminotransferase 18 U/L (0-33); Albumin Level 4.3 g/dL (3.5-5.2); Alkaline Phosphatase 88 U/L (35-105); Anion Gap 15.6 (5-19); Aspartate Amino Transferase 14 U/L (0-32); Blood Urea Nitrogen 6 mg/dL (6-20); Calcium 10.3 mg/dL (8.5-10.5); Carbon Dioxide 26 mmol/L (22-29); Chloride 101 mmol/L (98-107); Globulin 3.1 g/dL (1.3-4.6); Glucose 95 mg/dL (65-115); Lipase 18 U/L (13-60); Osmolality Calculated 285 mOsm/kg (285-295); Potassium 3.6 mmol/L (3.5-5.1); Sodium 139 mmol/L (136-145); Thyroid Stimulating Hormone 0.42 uIU/mL (0.27-4.20); Total Bilirubin 0.7 mg/dL (0.15-1.2); Total Protein 7.4 g/dL (6.6-8.7)
== END 2024-06-05 16:13 | disposition home or self-care (01) ==
LOC: LAB 16:13
PROVIDERS: PCP Nurse Practitioner Family; Visit Provider Nurse Practitioner Family
DX: R11.2 Nausea with vomiting, unspecified (principal); R63.4 Abnormal weight loss
CPT/HCPCS: 80053; 83690; 84443; 85025; 86140

== ENCOUNTER 2024-06-08 10:33 | Outpatient (CLI) | payer MEDICAID, SELFPAY ==
[2024-06-08 10:55] LABS: Basophils % 0.4 %; Eosinophils % 0.4 %; Hematocrit 45.5 % (36-47); Lymphocytes # 1.8 10^3/uL (0.8-4.8); Lymphocytes % 35.4 %; Mean Corpuscular HGB Conc 33.2 g/dL (30-55); Mean Corpuscular Volume 87.3 fl (85-98); Mean Platelet Volume 13.3 fL (7.4-10.4); Monocytes # 0.4 10^3/uL (0.2-0.9); Monocytes % 7.4 %; Neutrophils % 56.4 %; Nucleated Red Blood Cells % 0 %; Platelet Count 206 10^3/cmm (157-399); Red Blood Count 5.21 10^6/uL (3.85-5.65); Red Cell Distribution Width 11.9 % (12.1-15.1); White Blood Count 5.14 10^3/uL (3.29-11.43)
[2024-06-08 11:02] LABS: Erythrocyte Sedimentation Rate 13 mm/hr (0-15)
[2024-06-08 11:09] LABS: Slide Review Slide Review Perform
== END 2024-06-08 10:34 | disposition home or self-care (01) ==
LOC: LAB 10:36
PROVIDERS: PCP Nurse Practitioner Family; Visit Provider Nurse Practitioner Family
DX: R11.2 Nausea with vomiting, unspecified (principal); R63.4 Abnormal weight loss
CPT/HCPCS: 36415; 85025; 85651

== ENCOUNTER 2024-10-15 16:18 | Emergency (ER) | payer MEDICAID, SELFPAY ==
[2024-10-15 16:21] VITALS: BP 106/73; PULSE 69; RESP 16; TEMP 36.8; O2SAT 99; BMI 39.6
--- NOTE | 2024-10-15 17:46 | CTR_ITS ---
PROCEDURE INFORMATION: Exam: CT Abdomen And Pelvis With Contrast Exam date and time: 10/15/2024 5:58 PM Age: 34 years old Clinical indication: Abdominal pain; Generalized; Prior surgery; Surgery date: 1-6 months; Surgery type: Gastric bypass July 2025. Appy. C/O diffuse abd pain TECHNIQUE: Imaging protocol: Computed tomography of the abdomen and pelvis with contrast. Axial, coronal and sagittal reformatted images were created and reviewed. Radiation optimization: All CT scans at this facility use at least one of these dose optimization techniques: automated exposure control; mA and/or kV adjustment per patient size (includes targeted exams where dose is matched to clinical indication); or iterative reconstruction. Contrast material: OMNI 350; Contrast volume: 100 ml; Contrast route: INTRAVENOUS (IV); COMPARISON: CT abdomen pelvis w con* [id number] 05/14/2024 11:02 PM RADIATION DOSE METRICS: Total DLP (mGy-cm): 1011.12 FINDINGS: Diaphragm: Elevated left hemidiaphragm. Liver: Mild hepatomegaly. Subtle low-density hepatic lesions, measuring up to 1.6 cm, nonspecific in appearance but similar to prior. Gallbladder and biliary ducts: No radiodense gallstones. No biliary ductal dilatation. Pancreas: Unremarkable. Spleen: Unremarkable. Adrenal glands: Normal. No mass. Kidneys and ureters: Right renal cysts, measuring up to 2.4 cm sacral follow-up subcentimeter low-density left renal lesions, measuring up to 5 mm, too small to characterize. Nonobstructing bilateral renal calculi. No hydronephrosis. Stomach and bowel: Status post gastric bypass surgery. Moderate amount of retained stool in the colon. No obstruction. No bowel wall thickening. No pneumatosis. Appendix: Status post appendectomy. Intraperitoneal space: No free fluid. No organized fluid collection. No free air. Vasculature: Unremarkable. No aneurysm. Lymph nodes: Small mesenteric lymph nodes, nonspecific in appearance. No pathologically enlarged lymph nodes. Urinary bladder: Mild circumferential urinary bladder wall thickening, likely secondary to underdistention. Reproductive: Unremarkable. Bones/joints: No acute osseous abnormality. Osteopenia. Mild degenerative changes. Soft tissues: Postoperative changes in the anterior abdominal wall. CT/CT abdomen pelvis w con* [id number]: 1. No CT evidence of acute intra-abdominal or pelvic pathology. 2. Additional findings, as above. COMMENTS: Consistent with the [employer]'s Incidental Findings Committee white paper (J Am Kathleen Radiol 2018): Any incidental renal lesion less than 1 cm or classified as too small to characterize, or any incidental cystic renal lesion characterized as simple-appearing, is likely benign. No follow-up imaging is recommended for these lesions per consensus recommendations based on imaging criteria.
--- NOTE | 2024-10-15 17:46 | ECG_ITS ---
[facility]15 Pat Name: Kriss Patel Department: Room: Gender: Female Engineering Lab Technician: : 1990 Requested By: Abhijit Coronado Order Number: [id number] Reading MD: BERENICE CAGE Measurements Intervals Juda Rate: 61 P: -24 OK: 144 QRS: -27 QRSD: 84 T: 46 QT: 412 QTc: 416 Interpretive Statements SINUS RHYTHM BORDERLINE LEFT AXIS DEVIATION [QRS AXIS < -20] Compared to ECG 10/06/2023 04:24:58 No significant changes Electronically Signed On 10-17-2024 23:48:33 CDT by BERENICE CAGE [email or web address]
--- NOTE | 2024-10-15 17:46 | XRR_ITS ---
PROCEDURE INFORMATION: Exam: XR Chest Exam date and time: 10/15/2024 5:51 PM Age: 34 years old Clinical indication: Cough and dyspnea; Additional info: Dyspnea/cough TECHNIQUE: Imaging protocol: Radiologic exam of the chest. Views: 1 view. COMPARISON: CR XR chest 1V portable [id number] 04/21/2024 3:16 PM FINDINGS: Lungs: Unremarkable. No consolidation. Pleural spaces: Unremarkable. No pleural effusion. No pneumothorax. Heart/Mediastinum: Unremarkable. No cardiomegaly. Bones/joints: Unremarkable. XR/XR chest 1V portable [id number] IMPRESSION: No acute radiographic findings.
--- NOTE | 2024-10-15 17:47 | ED_ITS ---
Documented by User: Abhijit Payne DO 10/19/24 06:48 HPI - Abdominal Pain 2 General: Chief Complaint: Abdominal Pain Stated Complaint: abdominal pain post gaastric surgery Time Seen by Provider: 10/15/24 17:47 History of Present Illness: 34-year-old female presents emergency ro om planing abdominal pain. 3 weeks ago she had a gastric bypass she did some heavy lifting as a pulling sensation now having abdominal pain. No dysuria urgency or frequency no hematemesis coffee- ground emesis. No distention or bloating. Symptoms began after she picked up a air conditioner. Associated Symptoms: Denies chills, dysuria and fever(s) Related Data Home Medications ?Medication ?Instructions ?Recorded ?Confirmed medroxyprogesterone 150 mg/mL 150 mg IM .Q3M 10/05/23 05/15/24 intramuscular suspension acetaminophen 500 mg tablet 1,000 mg PO Q6H PRN Pain 1 06/22/23 05/15/24 Previous Rx's ?Medication ?Instructions ?Recorded metoclopramide HCl 10 mg tablet 10 mg PO Q6H PRN nause a and 05/15/24 vomiting #20 tabs promethazine 12.5 mg rectal 12.5 mg DE TID #12 ea 08/04 suppository Allergies Allergy/AdvReac Type Severity Reaction Status Date / Time No Known Allergies Allergy Verified 04/21/24 14:46 Review of Systems 2 Const: Denies: fever(s) or chills Card: Denies: chest pain Resp: Denies: dyspnea GI: Reports: abdominal pain : Denies: dysuria, urinary frequency or urinary urgency Musc: Denies: neck pain or back pain Skin/Breast: Denies: rash PFSH ED 2 PFSH: Medical History Hiatal hernia with gastroesophageal reflux BMI 50.0-59.9, adult Allergic rhinitis Surgical History No pertinent past surgical history Social History Smoking and tobacco/nicotine status: unknown if used tobacco/nicotine Second hand smoke exposure: No Alcohol intake: never Substance/Drug Use: never Physical Exam 2 Const: GENERAL APPEARANCE: cooperative ORIENTATION/CONSCIOUSNESS: Yes awake, Yes oriented to person, Yes oriented to place and Yes oriented to time HENMT: COMMON NORMALS: normocephalic, atraumatic and hearing grossly normal bilaterally HEAD & SCALP: normocephalic and atraumatic Resp: COMMON NORMALS: normal respiratory effort, No retractions, No use of accessory muscles and clear to auscultation bilaterally AUSCULTATION: clear to auscultation bilaterally Cardio: COMMON NORMALS: regular rate, regular rhythm and No murmurs present (Cardio) RATE: regular rate RHYTHM: regular rhythm GI: COMMON NORMALS: No hepatosplenomegaly present AUSCULTATION: Yes normoactive bowel sounds PALPATION: Yes Tenderness to palpation present (GI), No Guarding due to palpation present (GI) and Yes No hepatosplenomegaly present Extremity: COMMON NORMALS: normal to inspection, capillary refill normal, no clubbing, cyanosis or edema, no calf tenderness and no pedal edema Neuro: SENSORIUM/ORIENTATION: Yes oriented to person, Yes oriented to place and Yes oriented to time Skin: COMMON NORMALS: no rashes or lesions noted GENERAL SKIN EXAM: no rashes or lesions noted Course 2 Vital Signs: Vital signs: Vital Signs Temperature 98.3 F 10/15/24 16:21 Pulse Rate 65 10/15/24 19:15 Respiratory Rate 16 10/15/24 16:21 Blood Pressure 129/84 10/15/24 19:15 Pulse Oximetry 100 10/15/24 19:15 Oxygen Delivery Me thod Room Air 10/15/24 18:30 MDM - Abdominal Pain Medical Decision Making CT pending. care signed out to Dr. Garcia at change of shift. See final notes for diagnosis and disposition. Patient care transitioned me awaiting CT scan. This shows nothing acute. Patient was discharged. I discussed findings with the patient. Lab Data 10/15/24 17:25 10/15/24 17:25 Labs/Radiology: Radiology Impressions Abdomen/Pelvis CT 10/15/24 17:[address]: 1[address] evidence of acute intra-abdominal or pelvic pathology. 2. Additional findings, as above. COMMENTS: Consistent with the [employer]'s Incidental Findings Committee white paper (J Am Kathleen Radiol 2018): Any incidental renal lesion less than 1 cm or classified as too small to characterize, or any incidental cystic renal lesion characterized as simple-appearing, is likely benign. No follow-up imaging is recommended for these lesions per consensus recommendations based on imaging criteria. Chest X-Ray 10/15/24 17:46 IMPRESSION: No acute radiographic findings. Laboratory Results WBC 6.90 10^3/uL (3.29-11.43) 10/15/24: RBC 4.86 10^6/uL (3.85-5.65) 10/15/24 17: Hgb 14.00 g/dL (11.27-16.99) 10/15/24 17: Hct 44.3 % (36-47) 10/15/24 17: MCV 91.2 fl (85-98) 10/15/24: MCH 28.8 pg (27-33) 10/15/24: MCHC 31.6 g/dL (30-55) 10/15/24: RDW 13.0 % (12.1-15.1) 10/15/24: Plt Count 261 10^3/cmm (157-399) 10/15/24 17: MPV 13.6 fL (7.4-10.4) H 10/15/24 17: Neut % (Auto) 62.9 % 10/15/24 17: Lymph % (Auto) 30.6 % 10/15/24 17:25 [place] % (Auto) 5.4 % 10/15/24 17: Eos % (Auto) 0.7 % 10/15/24: Baso % (Auto) 0.3 % 10/15/24: Neut # (Auto) 4.34 10^3/uL (1.8-7.7) 10/15/24 17: Lymph # (Auto) 2.1 10^3/uL (0.8-4.8) 10/15/24: [place] # (Auto) 0.4 10^3/uL (0.2-0.9) 10/15/24 17:25 Eos # (Auto) 0.1 10^3/uL (0.0-0.8) 10/15/24: Baso # (Auto) 0.0 10^3/uL (0.0-0.1) 10/15/24 17:25 Nucleated RBC % (auto) 0 % 10/15/24 17:25 Nucleated RBCs # 0.0 /100WBC 10/15/24 17:25 Sodium 137 mmol/L (136-145) 10/15/24 17:25 Potassium 3.5 mmol/L (3.5-5.1) 10/15/24 17:25 Chloride 101 mmol/L (98-107) 10/15/24 17:25 Carbon Dioxide 27 mmol/L (22-29) 10/15/24 17:25 Anion Gap 12.5 (5-19) 10/15/24 17:25 BUN 9 mg/dL (6-20) 10/15/24 17:25 Creatinine 0.5 mg/dL (0.5-0.9) 10/15/24 17:25 GFR Calculation 142.1 mL/min (90-130) H 10/15/24 17:25 Glucose 84 mg/dL (65-115) 10/15/24 17:25 Calculated Osmolality 282 mOsm/kg (285-295) L 10/15/24 17:25 Lactic Acid 0.6 mmol/L (0.5-2.2) 10/15/24 17:25 Calcium 9.6 mg/dL (8.5-10.5) 10/15/24 17:25 Total Bilirubin 0.2 mg/dL (0.15-1.2) 10/15/24 17:25 AST 13 U/L (0-32) 10/15/24 17:25 ALT 14 U/L (0-33) 10/15/24 17:25 Alkaline Phosphatase 128 U/L (35-105) H 10/15/24 17:25 Total Protein 7.6 g/dL (6.6-8.7) 10/15/24 17:25 Albumin 4.2 g/dL (3.5-5.2) 10/15/24 17:25 Globulin 3.4 g/dL (1.3-4.6) 10/15/24 17:25 Lipase 20 U/L (13-60) 10/15/24 17:25 Urine Color Yellow (Yellow) 10/15/24 17:17 Urine Appearance Clear (CLEAR) 10/15/24 17:17 Urine pH 6.5 (5-7) 10/15/24 17:17 Ur Specific Elbert 1.012 (1.005-1.030) 10/15/24 17:17 Urine Protein Negative (Negative) 10/15/24 17:17 Urine Glucose (UA) Negative (Normal) 10/15/24 17:17 Urine Ketones Negative (Negative) 10/15/24 17:17 Urine Blood 3+ (Negative) A 10/15/24 17:17 Urine Nitrate Negative (Negative) 10/15/24 17:17 Urine Bilirubin Negative (Negative) 10/15/24 17:17 Urine Urobilinogen 1.0 mg/dL (Negative) 10/15/24 17:17 Ur Leukocyte Esterase Trace (Negative) A 10/15/24 17:17 Urine RBC 3-5 /hpf (0-2) 10/15/24 17:17 Urine WBC 0-5 /hpf (0-5) 10/15/24 17:17 Ur Squamous Epith Cells 0-5 /hpf (0-5) 10/15/24 17:17 Calcium Oxalate Crystal 5-10 /hpf H 10/15/24 17:17 Amorphous Sediment Not Reportable 10/15/24 17:17 Urine Bacteria Trace /hpf (NONE) 10/15/24 17:17 Hyaline Casts 2.87 /lpf 10/15/24 17:17 Discharge Plan Discharge Patient Disposition: Home Clinical Impression: Abdominal pain Condition: Stable Prescriptions: No Action medroxyprogesterone 150 mg/mL suspension 150 mg IM .Q3M promethazine 12.5 mg suppository 12.5 mg DE TID Qty: 12 0RF Rx Instructions: Use if not tolerating the oral antiemetics acetaminophen [Tylenol Ex Str Rapid Release] 500 mg Tablet 1,000 mg PO Q6H PRN (Reason: Pain) metoclopramide HCl 10 mg tablet 10 mg PO Q6H PRN (Reason: nausea and vomiting) Qty: 20 0RF Discharge Orders: Discharge ED (Routine); Ordered 10/15/24 Ordered By: Afshan Preciado Referrals: Fatmua Bernard, QC CHEMIST [Primary Care Provider, Nurse Practitioner] Discharge Diet: Usual diet Discharge Activity: Increase activity as tolerated Patient Instructions: Abdominal Pain (ED), Opioid Safety, Pain Management Activity Restrictions/Additional Instructions: Thank you for choosing [facility] for your healthcare needs today. You have been screened and evaluated and felt safe for discharge. Health conditions do change or evolve sometimes and as such it is important that you follow up with your Primary Doctor to be re checked, 3-5 days is a general good time frame for follow up. You are always welcome to return to the ED for re assessment if your symptoms are worsening or you have new concerns Print Language: Ukrainian Coding Level of Care Code ED Fruit Or Nut Crops Farm Manager for Chg Fwd Documented by User: Afshan Preciado MD 10/15/24 19:40 HPI - Abdominal Pain 2 General: Chief Complaint: Abdominal Pain Stated Complaint: abdominal pain post gaastric surgery Time Seen by Provider: 10/15/24 17:47 Related Data Home Medications ?Medication ?Instructions ?Recorded ?Confirmed medroxyprogesterone 150 mg/mL 150 mg IM .Q3M 10/05/23 05/15/24 intramuscular suspension acetaminophen 500 mg tablet 1,000 mg PO Q6H PRN Pain 1 06/22/23 05/15/24 Previous Rx's ?Medication ?Instructions ?Recorded metoclopramide HCl 10 mg tablet 10 mg PO Q6H PRN nause a and 05/15/24 vomiting #20 tabs promethazine 12.5 mg rectal 12.5 mg DE TID #12 ea 08/04 suppository Allergies Allergy/AdvReac Type Severity Reaction Status Date / Time No Known Allergies Allergy Verified 04/21/24 14:46 [facility] ED 2 PFSH: Medical History Hiatal hernia with gastroesophageal reflux BMI 50.0-59.9, adult Allergic rhinitis Surgical History No pertinent past surgical history Social History Smoking and tobacco/nicotine status: unknown if used tobacco/nicotine Second hand smoke exposure: No Alcohol intake: never Substance/Drug Use: never Course 2 Vital Signs: Vital signs: Vital Signs Temperature 98.3 F 10/15/24 16:21 Pulse Rate 65 10/15/24 19:15 Respiratory Rate 16 10/15/24 16:21 Blood Pressure 129/84 10/15/24 19:15 Pulse Oximetry 100 10/15/24 19:15 Oxygen Delivery Me thod Room Air 10/15/24 18:30 MDM - Abdominal Pain Medical Decision Making Patient care transitioned me awaiting CT scan. This shows nothing acute. Patient was discharged. I discussed findings with the patient. Lab Data 10/15/24 17:25 10/15/24 17:25 Labs/Radiology: Radiology Impressions Abdomen/Pelvis CT 10/15/24 17:[address]: 1[address] No CT evidence of acute intra-abdominal or pelvic pathology. 2. Additional findings, as above. COMMENTS: Consistent with the [place] [employer]'s Incidental Findings Committee white paper (J Am Kathleen Radiol 2018): Any incidental renal lesion less than 1 cm or classified as too small to characterize, or any incidental cystic renal lesion characterized as simple-appearing, is likely benign. No follow-up imaging is recommended for these lesions per consensus recommendations based on imaging criteria. Chest X-Ray 10/15/24 17:46 IMPRESSION: No acute radiographic findings. Laboratory Results WBC 6.90 10^3/uL (3.29-11.43) 10/15/24 17:25 RBC 4.86 10^6/uL (3.85-5.65) 10/15/24 17:25 Hgb 14.00 g/dL (11.27-16.99) 10/15/24 17:25 Hct 44.3 % (36-47) 10/15/24 17:25 MCV 91.2 fl (85-98) 10/15/24 17:25 MCH 28.8 pg (27-33) 10/15/24 17:25 MCHC 31.6 g/dL (30-55) 10/15/24 17:25 RDW 13.0 % (12.1-15.1) 10/15/24 17:25 Plt Count 261 10^3/cmm (157-399) 10/15/24 17:25 MPV 13.6 fL (7.4-10.4) H 10/15/24 17:25 Neut % (Auto) 62.9 % 10/15/24 17:25 Lymph % (Auto) 30.6 % 10/15/24 17:25 [place] % (Auto) 5.4 % 10/15/24 17:25 Eos % (Auto) 0.7 % 10/15/24 17:25 Baso % (Auto) 0.3 % 10/15/24 17:25 Neut # (Auto) 4.34 10^3/uL (1.8-7.7) 10/15/24 17:25 Lymph # (Auto) 2.1 10^3/uL (0.8-4.8) 10/15/24 17:25 [place] # (Auto) 0.4 10^3/uL (0.2-0.9) 10/15/24 17:25 Eos # (Auto) 0.1 10^3/uL (0.0-0.8) 10/15/24 17:25 Baso # (Auto) 0.0 10^3/uL (0.0-0.1) 10/15/24 17:25 Nucleated RBC % (auto) 0 % 10/15/24 17: Nucleated RBCs # 0.0 /100WBC 10/15/24 17:25 Sodium 137 mmol/L (136-145) 10/15/24 17:25 Potassium 3.5 mmol/L (3.5-5.1) 10/15/24 17:25 Chloride 101 mmol/L (98-107) 10/15/24 17:25 Carbon Dioxide 27 mmol/L (22-29) 10/15/24 17:25 Anion Gap 12.5 (5-19) 10/15/24 17:25 BUN 9 mg/dL (6-20) 10/15/24 17:25 Creatinine 0.5 mg/dL (0.5-0.9) 10/15/24 17:25 GFR Calculation 142.1 mL/min (90-130) H 10/15/24 17:25 Glucose 84 mg/dL (65-115) 10/15/24 17:25 Calculated Osmolality 282 mOsm/kg (285-295) L 10/15/24 17:25 Lactic Acid 0.6 mmol/L (0.5-2.2) 10/15/24 17:25 Calcium 9.6 mg/dL (8.5-10.5) 10/15/24 17:25 Total Bilirubin 0.2 mg/dL (0.15-1.2) 10/15/24 17:25 AST 13 U/L (0-32) 10/15/24 17:25 ALT 14 U/L (0-33) 10/15/24 17:25 Alkaline Phosphatase 128 U/L (35-105) H 10/15/24 17:25 Total Protein 7.6 g/dL (6.6-8.7) 10/15/24 17:25 Albumin 4.2 g/dL (3.5-5.2) 10/15/24 17:25 Globulin 3.4 g/dL (1.3-4.6) 10/15/24 17:25 Lipase 20 U/L (13-60) 10/15/24 17:25 Urine Color Yellow (Yellow) 10/15/24 17:17 Urine Appearance Clear (CLEAR) 10/15/24 17:17 Urine pH 6.5 (5-7) 10/15/24 17:17 Ur Specific [place]bert 1.012 (1.005-1.030) 10/15/24 17:17 Urine Protein Negative (Negative) 10/15/24 17:17 Urine Glucose (UA) Negative (Normal) 10/15/24 17:17 Urine Ketones Negative (Negative) 10/15/24 17:17 Urine Blood 3+ (Negative) A 10/15/24 17:17 Urine Nitrate Negative (Negative) 10/15/24 17:17 Urine Bilirubin Negative (Negative) 10/15/24 17:17 Urine Urobilinogen 1.0 mg/dL (Negative) 10/15/24 17:17 Ur Leukocyte Esterase Trace (Negative) A 10/15/24 17:17 Urine RBC 3-5 /hpf (0-2) 10/15/24 17:17 Urine WBC 0-5 /hpf (0-5) 10/15/24 17:17 Ur Squamous Epith Cells 0-5 /hpf (0-5) 10/15/24 17:17 Calcium Oxalate Crystal 5-10 /hpf H 10/15/24 17:17 Amorphous Sediment Not Reportable 10/15/24 17:17 Urine Bacteria Trace /hpf (NONE) 10/15/24 17:17 Hyaline Casts 2.87 /lpf 10/15/24 17:17 All radiology interpretation(s) finalized by discharge Discharge Plan Discharge Patient Disposition: Home Clinical Impression: Abdominal pain Condition: Stable Prescriptions: No Action medroxyprogesterone 150 mg/mL suspension 150 mg IM .Q3M promethazine 12.5 mg suppository 12.5 mg DE TID Qty: 12 0RF Rx Instructions: Use if not tolerating the oral antiemetics acetaminophen [Tylenol Ex Str Rapid Release] 500 mg Tablet 1,000 mg PO Q6H PRN (Reason: Pain) metoclopramide HCl 10 mg tablet 10 mg PO Q6H PRN (Reason: nausea and vomiting) Qty: 20 0RF Discharge Orders: Discharge ED (Routine); Ordered 10/15/24 Ordered By: Afshan Preciado Referrals: Fatuma Bernard, QC CHEMIST [Primary Care Provider, Nurse Practitioner] Discharge Diet: Usual diet Discharge Activity: Increase activity as tolerated Patient Instructions: Abdominal Pain (ED), Opioid Safety, Pain Management Activity Restrictions/Additional Instructions: Thank you for choosing [facility] for your healthcare needs today. You have been screened and evaluated and felt safe for discharge. Health conditions do change or evolve sometimes and as such it is important that you follow up with your Primary Doctor to be re checked, 3-5 days is a general good time frame for follow up. You are always welcome to return to the ED for re assessment if your symptoms are worsening or you have new concerns Print Language: Ukrainian Coding Level of Care Code ED Fruit Or Nut Crops Farm Manager for Svetlana Alvarado
[2024-10-15] MEDS: iohexol 350 mg/mL 500 mL Btl (per mL) IV (18:00)
[2024-10-15 18:01] LABS: Basophils % 0.3 %; Eosinophils # 0.1 10^3/uL (0.0-0.8); Eosinophils % 0.7 %; Hematocrit 44.3 % (36-47); Lymphocytes # 2.1 10^3/uL (0.8-4.8); Lymphocytes % 30.6 %; Mean Corpuscular HGB Conc 31.6 g/dL (30-55); Mean Corpuscular Hemoglobin 28.8 pg (27-33); Mean Corpuscular Volume 91.2 fl (85-98); Mean Platelet Volume 13.6 fL (7.4-10.4); Monocytes # 0.4 10^3/uL (0.2-0.9); Monocytes % 5.4 %; Neutrophils # 4.34 10^3/uL (1.8-7.7); Neutrophils % 62.9 %; Nucleated Red Blood Cells % 0 %; Platelet Count 261 10^3/cmm (157-399); Red Blood Count 4.86 10^6/uL (3.85-5.65)
[2024-10-15] MEDS: sodium chloride 0.9% 1,000 ML 999 ML IV (18:10)
[2024-10-15 18:11] LABS: Alanine Aminotransferase 14 U/L (0-33); Albumin Level 4.2 g/dL (3.5-5.2); Alkaline Phosphatase 128 U/L (35-105); Anion Gap 12.5 (5-19); Aspartate Amino Transferase 13 U/L (0-32); Blood Urea Nitrogen 9 mg/dL (6-20); Calcium 9.6 mg/dL (8.5-10.5); Carbon Dioxide 27 mmol/L (22-29); Chloride 101 mmol/L (98-107); Creatinine Clr Calc Pharmacy 182.1072; Globulin 3.4 g/dL (1.3-4.6); Glomerular Filtration Rate 142.1 mL/min (90-130); Glucose 84 mg/dL (65-115); Lipase 20 U/L (13-60); Osmolality Calculated 282 mOsm/kg (285-295); Potassium 3.5 mmol/L (3.5-5.1); Sodium 137 mmol/L (136-145); Total Bilirubin 0.2 mg/dL (0.15-1.2); Total Protein 7.6 g/dL (6.6-8.7)
[2024-10-15] MEDS: ondansetron 2 mg/ML SDV 2 mL 4 MG IVP (18:11)
[2024-10-15 18:12] LABS: Lactic Sepsis W/Reflex 0.6 mmol/L (0.5-2.2); Slide Review Slide Review Perform
[2024-10-15] MEDS: acetaminophen 1,000 MG/100 ML PIGGYBACK 400 MG IV (18:12)
[2024-10-15 18:15] VITALS: BP 114/81; PULSE 65; O2SAT 99
[2024-10-15 18:20] LABS: Bilirubin Urine Negative (Negative); Blood Urine 3+ (Negative); Glucose Urine UA Negative (Normal); Ketones Urine Negative (Negative); Leukocyte Esterase Urine Trace (Negative); Nitrate Urine Negative (Negative); Protein Urine Negative (Negative); Specific Gravity, Urine 1.012 (1.005-1.030); Urine Appearance Clear (CLEAR); Urine Color Yellow (Yellow); pH Urine 6.5 (5-7)
[2024-10-15 18:25] LABS: Add Urine Microscopic? YES; Bacteria Urine Trace /hpf; Hyaline Casts Urine 2.87 /lpf; Squamous Epithelial Cell Urine 0-5 /hpf (0-5); WBC Urine 0-5 /hpf (0-5)
[2024-10-15 18:30] VITALS: BP 108/69; PULSE 62; O2SAT 99
[2024-10-15 18:46] LABS: UA Slide Review UA Slide Review Perf
[2024-10-15 18:47] LABS: Add Urine Culture? No
[2024-10-15 19:15] VITALS: BP 129/84; PULSE 65; O2SAT 100
== END 2024-10-15 19:15 | disposition home or self-care (01) ==
PROVIDERS: Family Medicine; Emergency Provider Emergency Medicine; PCP Nurse Practitioner Family
DX: R10.9 Unspecified abdominal pain (principal)
CPT/HCPCS: 36415; 71045; 74177; 80053; 81001; 83605; 83690; 85025; 93005; 96365; 96375; 99285; J0131; J2405; J7030

== ENCOUNTER 2025-01-20 15:45 | Outpatient (CLI) | payer MEDICAID, SELFPAY ==
[2025-01-20 16:52] LABS: Hematocrit 41.3 % (36-47); Hemoglobin 13.30 g/dL (11.27-16.99); Mean Corpuscular HGB Conc 32.2 g/dL (30-55); Mean Corpuscular Hemoglobin 28.5 pg (27-33); Mean Corpuscular Volume 88.6 fl (85-98); Nucleated Red Blood Cells % 0 %; Platelet Count 259 10^3/cmm (157-399); Red Blood Count 4.66 10^6/uL (3.85-5.65); White Blood Count 7.74 10^3/uL (3.29-11.43)
[2025-01-20 17:42] LABS: Alanine Aminotransferase 13 U/L (0-33); Albumin Level 3.8 g/dL (3.5-5.2); Alkaline Phosphatase 120 U/L (35-105); Anion Gap 12.1 (5-19); Aspartate Amino Transferase 12 U/L (0-32); Blood Urea Nitrogen 10 mg/dL (6-20); Calcium 9.2 mg/dL (8.5-10.5); Carbon Dioxide 28 mmol/L (22-29); Chloride 101 mmol/L (98-107); Ferritin 50 ng/mL (15-150); Globulin 3.4 g/dL (1.3-4.6); Glucose 86 mg/dL (65-115); Iron 39 ug/dL (37-145); Magnesium 2.2 mg/dL (1.7-2.3); Osmolality Calculated 282 mOsm/kg (285-295); Potassium 4.1 mmol/L (3.5-5.1); Prealbumin 14.7 mg/dL (20-40); Sodium 137 mmol/L (136-145); Total Iron Binding Capacity 275 mcg/dl; Total Protein 7.2 g/dL (6.6-8.7); Unsaturated Iron Binding 236 ug/dL (112-347)
[2025-01-20 17:53] LABS: Vitamin B12 431 pg/mL (232-1245)
[2025-01-20 18:06] LABS: Slide Review Slide Review Perform
[2025-01-20 18:17] LABS: Calcium 9.2 mg/dL (8.5-10.5)
[2025-01-25 09:55] LABS: Zinc Level, Serum or Plasma 62 mcg/dL (60-130)
[2025-01-26 15:15] LABS: Vitamin B1 (Thiamine),Blood 104 nmol/L (78-185)
== END 2025-01-20 15:46 | disposition home or self-care (01) ==
PROVIDERS: PCP Nurse Practitioner Family; Visit Provider Nurse Practitioner Acute Care
DX: J30.2 Other seasonal allergic rhinitis (principal); Z68.38 Body mass index [BMI] 38.0-38.9, adult; Z20.822 Contact with and (suspected) exposure to COVID-19
CPT/HCPCS: 36415; 80053; 82306; 82310; 82525; 82607; 82728; 82746; 83540; 83550; 83735; 83921; 83970; 84100; 84134; 84425; 84446; 84590; 84597; 84630; 85025

== ENCOUNTER 2025-03-29 20:58 | Emergency (ER) | payer MEDICAID, SELFPAY ==
[2025-03-29 21:06] VITALS: BP 123/79; PULSE 90; RESP 17; TEMP 36.9; O2SAT 100; BMI 36.9
[2025-03-30] VITALS (11 sets, daily range): BP systolic 103–131; BP diastolic 69–97; PULSE 63–88; RESP 16; O2SAT 95–100
--- NOTE | 2025-03-30 01:18 | CTR_ITS ---
PROCEDURE INFORMATION: Exam: CT Abdomen And Pelvis With Contrast Exam date and time: 03/30/2025 1:56 AM Age: 34 years old Clinical indication: Abdominal pain; Flank; Left; Prior surgery; Surgery date: 6+ months; Surgery type: Hyster, shanika, gastric bypass; Additional info: HX gastric bypass, appy. L flank and llq pain TECHNIQUE: Imaging protocol: Computed tomography of the abdomen and pelvis with contrast. Radiation optimization: All CT scans at this facility use at least one of these dose optimization techniques: automated exposure control; mA and/or kV adjustment per patient size (includes targeted exams where dose is matched to clinical indication); or iterative reconstruction. Contrast material: OMNI 350; Contrast volume: 100 ml; Contrast route: INTRAVENOUS (IV); COMPARISON: CT abdomen pelvis w con* [id number] 10/15/2024 5:58 PM RADIATION DOSE METRICS: Total DLP (mGy-cm): 912.43 FINDINGS: Liver: Normal. No mass. Gallbladder and biliary ducts: Normal. No calcified stones. No ductal dilation. Pancreas: Normal. No ductal dilation. Spleen: Normal. No splenomegaly. Adrenal glands: Normal. No mass. Kidneys and ureters: Obstructing 6 mm left proximal ureter stone. Mild hydronephrosis and delayed nephrogram of the left kidney. Right upper pole renal cyst measures 2 cm. Stomach and bowel: [place]-en-Y gastric bypass. No obstruction of the jejunojejunostomy. Appendix: No evidence of appendicitis. Intraperitoneal space: Unremarkable. No free air. No significant fluid collection. Vasculature: Unremarkable. No abdominal aortic aneurysm. Lymph nodes: Unremarkable. No enlarged lymph nodes. Urinary bladder: Unremarkable as visualized. Reproductive: Unremarkable as visualized. Bones/joints: Unremarkable. No acute fracture. Soft tissues: Unremarkable. CT/CT abdomen pelvis w con* [id number] IMPRESSION: 1. Obstructing 6 mm left proximal ureter stone. Mild hydronephrosis and delayed nephrogram of the left kidney. 2. [place]-en-Y gastric bypass. No obstruction of the jejunojejunostomy. COMMENTS: Consistent with the [place] [employer]'s Incidental Findings Committee white paper (J Am Kathleen Radiol 2018): Any incidental renal lesion less than 1 cm or classified as too small to characterize, or any incidental cystic renal lesion characterized as simple-appearing, is likely benign. No follow-up imaging is recommended for these lesions per consensus recommendations based on imaging criteria.
--- NOTE | 2025-03-30 01:19 | W.ED.BACK ---
HPI - Back Pain/Injury General: Chief Complaint: Back Pain/Injury Stated Complaint: Lt side pain Time Seen by Provider: 03/30/25 00:42 History of Present Illness: Patient is a 34-year-old female with a history of appendectomy and gastric bypass who presents with acute onset of severe left-sided pain involving the ribs and lower back, beginning tonight. She reports no preceding trauma, unusual food intake, or prior history of kidney stones. She notes mild chills but has had no known fevers, diaphoresis, cough. Has had multiple episodes of nausea vomiting, last bowel movement yesterday. Was in her normal state of health just prior to 6 hours ago. Has had she was able to urinate earlier today but only once at work, suggesting possible dehydration. She denies the possibility of . Her gastric bypass was in July of this year, has lost weight appropriately and is back to tolerating normal meals usually. Associated symptoms: Reports abdominal pain, chills, nausea and vomiting Related Data Previous Rx's ?Medication ?Instructions ?Recorded cetirizine 10 mg tablet (Zyrtec) 10 mg PO DAILY PRN allergy 01/16/25 symptoms #30 tabs fluticasone propionate 50 2 spray intranasal DAILY #16 grams 01/16/25 mcg/actuation nasal spray,suspension (Flonase Allergy Relief) olopatadine 0.7 % eye drops 1 drp ophthalmic (eye) DAILY #5 mL 01/16/25 (Pataday Once Daily Relief) Allergies Allergy/AdvReac Type Severity Reaction Status Date / Time No Known Allergies Allergy Verified 01/16/25 10:09 Review of Systems General: Reports: 10 or more systems reviewed and unremarkable except in HPI and below Const: Reports: chills GI: Reports: abdominal pain, nausea and vomiting [facility] ED PFSH: Medical History (Updated 03/30/25 @ 04:48 by Adama Howe DO) Hiatal hernia with gastroesophageal reflux BMI 50.0-59.9, adult Allergic rhinitis Surgical History No pertinent past surgical history Social History Smoking and tobacco/nicotine status: unknown if used tobacco/nicotine Second hand smoke exposure: No Alcohol intake: never Substance/Drug Use: never Physical Exam Narrative: EXAM NARRATIVE: Patient moderately uncomfortable appearing but nontoxic, afebrile, vital signs stable on arrival, no acute distress. Abdomen mildly distended, diffusely tender on the left, mild left CVA tenderness, not peritonitic, well-healed surgical scars, bowel sounds decreased. Delayed cap refill, 2+ pulses throughout, dry mucous membranes. GCS 15, normal sinus rhythm, breathing comfortably on room air, saturating well. Course Vital Signs: Vital signs: Vital Signs Temperature 98.5 F 03/29/25 21:06 Pulse Rate 67 03/30/25 04:30 Respiratory Rate 16 03/30/25 01:39 Blood Pressure 125/83 03/30/25 04:30 Pulse Oximetry 95 03/30/25 04:30 Oxygen Delivery Me thod Room Air 03/30/25 04:30 MDM - Back Pain/Injury Medical Decision Making -ddx: Nephrolithiasis, pyelonephritis, cystitis, enteritis, foodborne illness, dehydration, electrolyte abnormality, pneumonia, bypass complication - Patient with abrupt onset of left-sided abdominal and flank pain, some nausea vomiting, no renal history, did have a bypass earlier this year, appears uncomfortable on exam. Will evaluate with abdominal labs, get CT abdomen pelvis, give fluids and pain control and reassess. - On workup, patient found to have a 6 mm obstructing stone with mild hydro on the left side, her UA was also weakly positive, also had a very mild TORI, her baseline was seemingly 0.5 and she is at 0.8 today, in setting of having persistent nausea on exam with these being with patient looking unwell, discussed with her that the option of transfer to see urology for possible stent placement to which she was agreeable to. Patient was started on Rocephin for her possible UTI, given additional pain and nausea medication and [facility] [place] was contacted and accept patient for transfer to their ED for urology evaluation, stable at this time. Labs 03/30/25 01:23 03/30/25 01:23 Radiology Impressions Abdomen/Pelvis CT 03/30/25 01:18 IMPRESSION: 1. Obstructing 6 mm left proximal ureter stone. Mild hydronephrosis and delayed nephrogram of the left kidney. 2. Rica-en-Y gastric bypass. No obstruction of the jejunojejunostomy. COMMENTS: Consistent with the [employer]'s Incidental Findings Committee white paper (J Am Kathleen Radiol 2018): Any incidental renal lesion less than 1 cm or classified as too small to characterize, or any incidental cystic renal lesion characterized as simple-appearing, is likely benign. No follow-up imaging is recommended for these lesions per consensus recommendations based on imaging criteria. Laboratory Results WBC 11.52 10^3/uL (3.29-11.43) H 03/30/25 01:23 RBC 5.05 10^6/uL (3.85-5.65) 03/30/25 01:23 Hgb 14.80 g/dL (11.27-16.99) 03/30/25 01:23 Hct 44.7 % (36-47) 03/30/25 01:23 MCV 88.5 fl (85-98) 03/30/25 01:23 MCH 29.3 pg (27-33) 03/30/25 01:23 MCHC 33.1 g/dL (30-55) 03/30/25 01:23 RDW 12.2 % (12.1-15.1) 03/30/25 01:23 Plt Count 258 10^3/cmm (157-399) 03/30/25 01:23 MPV 12.3 fL (7.4-10.4) H 03/30/25 01:23 Neut % (Auto) 88.8 % 03/30/25 01:23 Lymph % (Auto) 7.6 % 03/30/25 01:23 Hemphill % (Auto) 3.0 % 03/30/25 01:23 Eos % (Auto) 0.0 % 03/30/25 01:23 Baso % (Auto) 0.2 % 03/30/25 01:23 Neut # (Auto) 10.23 10^3/uL (1.8-7.7) H 03/30/25 01:23 Lymph # (Auto) 0.9 10^3/uL (0.8-4.8) 03/30/25 01:23 Hemphill # (Auto) 0.4 10^3/uL (0.2-0.9) 03/30/25 01:23 Eos # (Auto) 0.0 10^3/uL (0.0-0.8) 03/30/25 01:23 Baso # (Auto) 0.0 10^3/uL (0.0-0.1) 03/30/25 01:23 Nucleated RBC % (auto) 0 % 03/30/25 01:23 Nucleated RBCs # 0.0 /100WBC 03/30/25 01:23 Sodium 141 mmol/L (136-145) 03/30/25 01:23 Potassium 4.0 mmol/L (3.5-5.1) 03/30/25 01:23 Chloride 104 mmol/L (98-107) 03/30/25 01:23 Carbon Dioxide 26 mmol/L (22-29) 03/30/25 01:23 Anion Gap 15.0 (5-19) 03/30/25 01:23 BUN 14 mg/dL (6-20) 03/30/25 01:23 Creatinine 0.8 mg/dL (0.5-0.9) 03/30/25 01:23 GFR Calculation 82.6 mL/min (90-130) L 03/30/25 01:23 Glucose 148 mg/dL (65-115) H 03/30/25 01:23 Calculated Osmolality 295 mOsm/kg (285-295) 03/30/25 01:23 Lactic Acid 1.0 mmol/L (0.5-2.2) 03/30/25 01:23 Calcium 9.7 mg/dL (8.5-10.5) 03/30/25 01:23 Phosphorus 2.7 mg/dL (2.5-4.5) 03/30/25 01:23 Magnesium 2.1 mg/dL (1.7-2.3) 03/30/25 01:23 Total Bilirubin 0.2 mg/dL (0.15-1.2) 03/30/25 01:23 AST 15 U/L (0-32) 03/30/25 01:23 ALT 17 U/L (0-33) 03/30/25 01:23 Alkaline Phosphatase 139 U/L (35-105) H 03/30/25 01:23 C-Reactive Protein 4.0 mg/L (0.0-4.9) 03/30/25 01:23 Total Protein 7.9 g/dL (6.6-8.7) 03/30/25 01:23 Albumin 4.2 g/dL (3.5-5.2) 03/30/25 01:23 Globulin 3.7 g/dL (1.3-4.6) 03/30/25 01:23 Lipase 25 U/L (13-60) 03/30/25 01:23 HCG, Qual Negative (Negative) 03/30/25 01:26 Urine Color Yellow (Yellow) 03/30/25 01:26 Urine Appearance Cloudy (CLEAR) A 03/30/25 01:26 Urine pH 6.0 (5-7) 03/30/25 01:26 Ur Specific Sandy 1.026 (1.005-1.030) 03/30/25 01:26 Urine Protein 1+ (Negative) A 03/30/25 01:26 Urine Glucose (UA) Negative (Normal) 03/30/25 01:26 Urine Ketones Trace (Negative) 03/30/25 01:26 Urine Blood 3+ (Negative) A 03/30/25 01:26 Urine Nitrate Negative (Negative) 03/30/25 01:26 Urine Bilirubin Negative (Negative) 03/30/25 01:26 Urine Urobilinogen 1.0 mg/dL (Negative) 03/30/25 01:26 Ur Leukocyte Esterase Trace (Negative) A 03/30/25 01:26 Urine RBC >100 /hpf (0-2) H 03/30/25 01:26 Urine WBC 5-10 /hpf (0-5) H 03/30/25 01:26 Ur Squamous Epith Cells 0-5 /hpf (0-5) 03/30/25 01:26 Amorphous Sediment Not Reportable 03/30/25 01:26 Urine Bacteria None seen /hpf (NONE) 03/30/25 01:26 Hyaline Casts 11.97 /lpf 03/30/25 01:26 All radiology interpretation(s) finalized by discharge Discharge Plan Discharge Patient Disposition: Xfer Short-Term Hosp Clinical Impression: Obstructive nephropathy Condition: Stable Referrals: Fatuma Bernard FNP [Primary Care Provider, Nurse Practitioner] Print Language: Bulgarian Coding Level of Care Code ED [employer] Law Clerk for Svetlana Alvarado
[2025-03-30 01:29] LABS: Hematocrit 44.7 % (36-47); Hemoglobin 14.80 g/dL (11.27-16.99); Mean Corpuscular HGB Conc 33.1 g/dL (30-55); Mean Corpuscular Hemoglobin 29.3 pg (27-33); Mean Corpuscular Volume 88.5 fl (85-98); Nucleated Red Blood Cells % 0 %; Platelet Count 258 10^3/cmm (157-399); Red Blood Count 5.05 10^6/uL (3.85-5.65); White Blood Count 11.52 10^3/uL (3.29-11.43)
[2025-03-30 01:34] LABS: HCG Qualitative Urine. Negative (Negative)
[2025-03-30] MEDS: morphine 4 mg/mL SDV 1 mL IM (01:39)
[2025-03-30] MEDS: ondansetron 2 mg/ML SDV 2 mL 4 MG IM (01:40)
[2025-03-30 01:47] LABS: Alanine Aminotransferase 17 U/L (0-33); Albumin Level 4.2 g/dL (3.5-5.2); Alkaline Phosphatase 139 U/L (35-105); Anion Gap 15.0 (5-19); Aspartate Amino Transferase 15 U/L (0-32); Blood Urea Nitrogen 14 mg/dL (6-20); Calcium 9.7 mg/dL (8.5-10.5); Carbon Dioxide 26 mmol/L (22-29); Chloride 104 mmol/L (98-107); Globulin 3.7 g/dL (1.3-4.6); Glucose 148 mg/dL (65-115); Lactic Sepsis W/Reflex 1.0 mmol/L (0.5-2.2); Lipase 25 U/L (13-60); Magnesium 2.1 mg/dL (1.7-2.3); Osmolality Calculated 295 mOsm/kg (285-295); Potassium 4.0 mmol/L (3.5-5.1); Sodium 141 mmol/L (136-145); Total Protein 7.9 g/dL (6.6-8.7)
--- OUTSIDE RECORDS SUMMARY | 2025-03-30 01:48 | XMS_ITS | Data Portability ---
Author Organization [facility], [facility] Address [address] [facility] [address] [place] [address] Care Team Providers Care Granulizing Machine Operator Name Role Phone STORMYNAYELI ROSA Primary Care Provider Assessment Encounter Date Assessment Date Assessment LastModified by Organization Details LastModified Time 11/19/2022 11/19/2022 Increase fluids and rest as needed. Likely started as viral and will need to run its course, likely 7-10 days. Meds as prescribed for secondary infection and will refill inhaler for asthma. Inhaler use instruction. May use vicks, humidification, honey and nasal/sinus rinse PRN for congestion sx. Tylenol vs. IBU PRN. Patient verbalizes understanding and agreement with this plan of care. Will call with any questions or concerns. [email or web address] Not available 11/19/2022 18:03:00 Plan of Treatment Reminders Order Date Submit Date Provider Last Modified By Organization Details Last Modified Time Details Appointments None recorded. Lab test, urine 2022 023 [email or web address] [facility] ([facility]), [address] [place], [address], 17:17:16 rapid strep group A, throat 2022 023 [email or web address] [facility] ([facility]), [address] [place], [address], 08:50:44 Referral None recorded. Procedures None recorded. Surgeries None recorded. Imaging None recorded. Medication Orders Depo-Candy Roller a 150 mg/mL intramuscul ar suspension [address]/[facility] #[id number], [address], [address], [place], [address], 4 11:08:09 Depo-Candy Roller a 150 mg/mL intramuscul ar suspension [address]/Pharmacy #[id number], [address], [address], [place], [address], 3 17:17:16 amoxicillin 875 mg tablet 2022 023 [facility]/Pharmacy #[id number], [address], [address], [place], [address], 3 08:50:44 medroxyprog esterone 150 mg/mL intramuscul ar suspension [address]/Pharmacy #[id number], [address], [address], [place], [address], 3 11:09:36 amoxicillin 875 mg-potassiu m clavulanate 125 mg tablet [address]/Pharmacy #[id number], [address], [address], [place], [address], 3 10:56:00 albuterol sulfate HFA 90 mcg/actuati on aerosol inhaler 2022 023 [facility]/Pharmacy #[id number], [address], [address], [place], [address], 3 00:16:06 promethazin e-DM 6.25 mg-15 mg/5 mL oral syrup 2022 023 [email or web address] [id number], [address], [address], [place], [address], 3 10:56:29 Patient TargetsNo targets recorded. Patient InstructionsNo instructions recorded. Reason for Referral None Reported. Results Created Date Observation Date Name Description Value Unit Range Abnormal Flag Note LastModifiedBy Organization Detail LastModifiedTime 03/27/2003/27/2023 rapid strep group A, throa t Strep positi ve Not Available [facility] ([facility]) [address] [place], [address], 03/27/2023 08:19:50 04/08/20 23 04/08/2023 pregn katheryn test, urine HCG negati ve Not Available [facility] ([facility]) [address] [place], [address], 04/08/2023 12:05:05 Result Notes None recorded. Problems Name Problem SNOMED Code Status Onset Date Resolution Date Notes Provider Name and Address Organization Details Recorded Time Allergic rhinitis 27549113 Completed 201406/03/2014 Allergic Rhinitis - Status is Inactive; 5 8:26AM by Angie Kasper CMT, Rjo n/Addendu m; Promoted; acuity set as *; Not Available [facility] 3 03:10:28 Tympanos val Completed 201406/03/2014 Tympanost aniket Tubes - Status is Inactive; 5 8:26AM by Angie Kasper CMT, Moose n/Addendu m; Promoted; acuity set as *; Not Available [facility] 3 03:10:29 Contrace ption care manageme nt Active 2022 MIKE Sanchez - [facility], Ck 3 10:56:55 Problem Notes None recorded. Medical Equipment None Reported. Allergies No known drug allergies Medications Name Sig Start Date Stop Date Status Note LastModified by Organization Details LastModified Time promethaz ine-DM 6.25 mg-15 mg/5 mL oral syrup TAKE 5 ML BY MOUTH EVERY 4 HOURS NEEDED FOR 7 DAYS 12/31 completed Not Available Not Available Not Available ibuprofen 800 mg tablet TAKE 1 TABLET BY MOUTH EVERY 8 HOURS NEEDED FOR PAIN 12/31 completed Not Available Not Available Not Available dexametha sone 6 mg tablet TAKE 1 TABLET BY MOUTH ONCE DAILY 12/31 completed Not Available Not Available Not Available betametha sone acetate and sodium phos 6 mg/mL suspensio n for injection Take 6 mg by injectio n route for 1 day. 12/31 completed Given IM in the office by Martha [place] RN Not Available Not Available Not Available amoxicill in 875 mg tablet TAKE 1 TABLET BY MOUTH EVERY 12 HOURS FOR 10 DAYS active Not Available Not Available No t Available Depo-Prov era 150 mg/mL intramusc ular suspensio n Q 3 months 2023 active pt brought injectio n from pharmacy Not Available Not Available Not Available ciproflox acin 0.3 % eye drops INSTILL 1 DROP IN THE LEFT EYE 4 TIMES DAILY FOR 7 DAYS 12/31 completed Not Available Not Available Not Available erythromy heather 5 mg/gram (0.5 %) eye ointment APPLY 1 CM RIBBON INTO THE LOWER CONJUNCT IVAL SAC(S) IN THE AFFECTED EYE(S) BY OPHTHALM IC ROUTE 3 TIMES PER DAY 12/31 completed Not Available Not Available Not Available neomycin- polymyxin -dexameth 3.5 mg/mL-10, 000 unit/mL-0 .1% eye drops INSTILL 2 DROPS INTO AFFECTED EYE(S) EVERY 6 HOURS 12/31 completed Not Available Not Available Not Available albuterol sulfate HFA 90 mcg/actua tion aerosol inhaler Inhale 2 puffs every 4 hours by inhalati on route as needed. 2022 active Not Available Not Available Not Avai lable amoxicill in 875 mg-potass ium clavulana te 125 mg tablet TAKE 1 TABLET BY MOUTH EVERY 12 HOURS FOR 10 DAYS 12/31 completed Not Available Not Available Not Available Vitals Date Recorded Body height Body mass index (BMI) Body weight Oxygen saturation Oxygen saturation in Arterial blood by Pulse oximetry Heart rate Respiratory rate Body temperature Systolic And Diastolic Provider Name and Address Organization Details Last Updated DateTime 4 160.02 cm 50.7 kg/m2 650340. 82 g 98 % 98 % 108 /min 20 /min 98.6 [degF] 114/68 mm[Hg] LG [facility] 4 16:15:31 Date Recorded Body height Body mass index (BMI) Body weight Oxygen saturation Oxygen saturation in Arterial blood by Pulse oximetry Heart rate Body temperature Systolic And Diastolic Provider Name and Address Organization Details Last Updated DateTime 3 160.02 cm 48 kg/m2 235327. 53 g 96 % 96 % 98 /min 97.3 [degF] 134/75 mm[Hg] TARUN VALDEZ [facility] 3 17:20:09 Date Recorded Body height Body mass index (BMI) Body weight Oxygen saturation Oxygen saturation in Arterial blood by Pulse oximetry Heart rate Respiratory rate Body temperature Systolic And Diastolic Provider Name and Address Organization Details Last Updated DateTime 3 160.02 cm 48.9 kg/m2 712437. 49 g 98 % 98 % 94 /min 20 /min 99 [degF] 118/80 mm[Hg] LG [facility] 3 11:09:04 Date Recorded Body height Body mass index (BMI) Body weight Oxygen saturation Oxygen saturation in Arterial blood by Pulse oximetry Heart rate Body temperature Respiratory rate Systolic And Diastolic Provider Name and Address Organization Details Last Updated DateTime 3 160.02 cm 48.5 kg/m2 297167. 31 g 96 % 96 % 122 /min 96.9 [degF] 20 /min 140/80 mm[Hg] Jacey Zapata [facility] 3 08:38:30 Date Recorded Body height Body mass index (BMI) Body weight Oxygen saturation Oxygen saturation in Arterial blood by Pulse oximetry Heart rate Body temperature Respiratory rate Systolic And Diastolic Provider Name and Address Organization Details Last Updated DateTime 3 160.02 cm 49.8 kg/m2 575438. 46 g 97 % 97 % 84 /min 98.5 [degF] 20 /min 128/78 mm[Hg] LG MACIAS [facility], LKushal 12:19:15 Social History None recorded. Functional Status None recorded. Mental Status None recorded. Family History Relationship Description Onset Age of this Age Resolved Age Notes LastModified by Organization Details LastModified Time Father No current problems or disability [email or web address] Not available 0 10/05/2022 10:06:24 Mother No current problems or disability [email or web address] Not available 0 10/05/2022 10:06:24 Notes:family in good health, mom is adopted Medical History No medical history recorded. Gynecological HistoryNo gynecological history recorded. Obstetrics History GPAL:G 0 P 0 0 0 0 Immunizations Vaccine Type Date Status Note Provider Nam e and Address Organization Details Recorded Time Tdap 02/21/2021 completed Not Available [facility] 12/08/2022 02:49:46 Past Encounters Encounter ID Performer Location Encounter Start Date Encounter Closed Date Diagnosis/Indication Diagnosis SNOMED-CT Code Diagnosis ICD10 Code Diagnosis IMO Codes Diagnosis Note [id number] LUZ PACHECO [facility] ([facility]) [address] [place] [address] [phone] 5 09/04/2022 09:05:47 09/04/2022 11:52:15 Acute conjunctivitis of left eye 6011768791 26661 H10.32 Congestion of nasal sinus 20236213 R09.81 [id number] Nayeli Stein MD [facility] ([facility]) [address] [place] [address] [phone] 5 10/05/2022 09:03:55 10/05/2022 19:05:08 Contraception care management 875155990 Z30.9 [id number] LUZ PACHECO [facility] ([facility]) [address] [place] [address] [phone] 5 11/19/2022 16:55:10 11/19/2022 20:47:19 Acute suppurative otitis media without spontaneous rupture of ear drum 55471774 H66.003 Mild inter mittent asthma 151988766 J45.20 Viral uppe r respiratory tract infection 634502581 J06.9 [id number] Nayeli Stein MD [facility] ([facility]) [address] [place] [address] [phone] 12/31/2022 10:49:22 12/31/2022 14:19:00 Contraception care management 253298958 Z30.9 [id number] CARLOS KENT [facility] ([facility]) [address] [place] [address] [phone] 03/27/2023 08:15:08 03/27/2023 14:23:05 Sore throat 414356151 J02.9 Streptococ jan sore throat 09012327 J02.0 Strep positive today. Start amoxicilli n BID x 10 days. Encouraged to continue tylenol and ibuprofen as needed for pain and fever. Push fluids and use cool mist humidifier at night. Change toothbrush out after 2 days of antibiotic s. If worsening condition or no improvemen t in 5-7 days, return for further evaluation . Patient verbalizes understand ing. [id number] Nayeli Stein MD [facility] ([facility]) [address] [place] [address] [phone] 5 04/08/2023 11:30:43 04/13/2023 07:44:04 Contraception care management 284316585 Z30.9 [id number] Nayeli Stein MD [facility] ([facility]) [address] [place] [address] [phone] 07/08/2023 15:29:00 07/08/2023 17:36:23 Contraception care management 846770597 Z30.9 Health Concerns Section Related Observation LastModified by Organization Detai ls LastModified Time None Recorded Concern Status LastModified by Organization Details LastModified Time None Recorded Advance Directives Directive None Recorded Payers Insurance Date Sequence Insurance Name Policy Number Policy Reyes Covered Member ID Reyes Member ID Guarantor Name 07/08/2023 1 [facility] (MEDICAID REPLACEMENT - HMO) ROLLY Patel [id number] Kriss Patel Notes Date Note Type Note Provider Name and Address Organization Details Recorded Time 11/19/2022 text/html Ear Pain Brief HPIReported by PatientHPIFor quality, patient reportsaching painbut reportsno itchingandno discharge from the ears. For context, patient reportsrecent uri. For associated symptoms, patient reportsnasal congestion,nasal discharge, andmuffled hearingbut reportsno vertigoandno jaw popping or clicking. For location, patient reportsleft. For onset/timing, patient reportsnew onsetandgradual onset. For severity, patient reportsgetting worseandmoderate pain.ROS as noted in the HPI LUZ PACHECO [address] [place], [address], [facility] 11/19/2022 18:04:38 03/27/2023 text/html Sore ThroatRepor penny by PatientHPIFor quality, patient reportssharpandburning . For severity, patient reportsmild. For associated symptoms, patient reportsfever,cough,swo llen glands, andheadache. For location, patient reportsbilateral. For onset/timing, patient reportsgradual. For duration, patient reportsstarted 3 day(s) ago. For alleviating factors, patient reportsthroat lozenges.ROS as noted in the HPI Patient is a 32 year old female who presents to the walk in clinic today for sore throat, fever, body aches, and chills. Patient reports she was exposed to strep throat this weekend and would like a strep test. Has not tried any OTC medications. CARLOS KENT [address] [place], [address], [facility] 03/27/2023 09:09:15 OBGyn Episode No OBEpisode recorded.
--- OUTSIDE RECORDS SUMMARY | 2025-03-30 01:48 | XMS_ITS | Clinical Summary ---
Author Organization [facility] Address [address] [place] [address] Phone Care Team Providers Care Park Activities Coordinator Name Role Phone Unavailable Primary Care Provider Unavailabl e Allergies Active Allergy Reactions Criticality Noted Date Comments Metoclopramide Hcl Anxiety Low 05/19/2024 Medications ondansetron (ZOFRAN) 4 mg/5 mL Solution Take by mouth every 8 hours as needed for Nausea. Active Active Problems Problem Noted Date Diagnosed Date Intractable nausea and vomiting 05/19/2024 Encounters Date Type Department Care Team Description 01/21/2025 Abstract [facility] [address] [place] [id number] Provider, Abstract from Last 3 Months Immunizations Immunization Administration Dates Next Due (TDVAX)(7 YRS UP) TETANUS AN D DIPHTHERIA TOXOIDS, ADSORBED (2 LF OF TETANUS TOXOID AND 2 LF OF DIPHTHERIA TOXOID), 0.5ML (PF), IM 12/07/2002 Dt Dtp Dtap Vaccine 02/04/2006 Influenza Seasonal Unspecified Formulation IM ,03/04/1997 Social History Tobacco Use Types Packs/Day Years Used Date Smoking Tobacco: Never Smokeless Tobacco: Never Tobacco Cessation:Counseling Given: Not Answered Alcohol Use Standard Drinks/Week Comments Never 0 (1 standard drink = 0.6 oz pur e alcohol) Feeling Safe Answer Date Recorded Are you in a relationship wi th someone who hurts you emotionally and/or physically? No 05/19/2024 Comments Unknown Sex and Gender Information Value Date Recorded Sex Assigned at Not on file Legal Sex Female 4:22 AM ENERGY SCHEDULER Gender Identity Not on file Sexual Orientation Not on file Last Filed Vital Signs Vital Sign Reading Time Taken Comments Blood Pressure 115/72 05/19/2024 2:45 PM ENERGY SCHEDULER Pulse 58 05/19/2024 2:45 PM ENERGY SCHEDULER Temperature 36.2 C (97.1 F) 05/19/2024 12:38 PM ENERGY SCHEDULER Respiratory Rate 18 05/19/2024 2:45 PM ENERGY SCHEDULER Oxygen Saturation 100% 05/19/2024 2:45 PM ENERGY SCHEDULER Inhaled Oxygen Concentration - - Weight 119.3 kg (263 lb) 05/19/2024 12:38 PM ENERGY SCHEDULER Height 160 cm (5' 3 ) 05/19/2024 12:38 PM ENERGY SCHEDULER Body Mass Index 46.59 05/19/2024 12:38 PM ENERGY SCHEDULER Plan of Treatment Health Maintenance Due Date Last Done Comments HEPATITIS B VACCINES (1 of 3 - 19+ 3-dose series) 07/20/2010 HPV/Cotest (21-29) 07/20/2012 DTAP/TDAP/TD VACCINES (3 - Tdap) 02/05/2016 02/05/20 06, 12/07/2002 HPV VACCINES (1 - 3-dose SCDM series) 07/20/2018 CERVICAL CANCER SCREENING 07/20/2021 HPV/Cotest (30-65) 07/20/2021 PAP SMEAR 07/20/2021 INFLUENZA VACCINE (#1) 2024 04/01/1997, 1996 Insurance [facility] [id number]
[2025-03-30 01:50] LABS: Add Urine Microscopic? YES; Glucose Urine UA Negative (Normal); Nitrate Urine Negative (Negative); Specific Gravity, Urine 1.026 (1.005-1.030)
[2025-03-30] MEDS: iohexol 350 mg/mL 500 mL Btl (per mL) IV (02:00)
[2025-03-30] MEDS: metoclopramide 5 mg/mL SDV 2 mL 10 MG IVP (04:22)
[2025-03-30] MEDS: cefTRIAXone 1,000 mg SDV 1000 MG IVP (04:23)
[2025-03-30] MEDS: HYDROmorphone 0.5 MG/0.5 ML INJ IVP (07:38)
--- NOTE | 2025-03-30 07:41 | PC.NURSE ---
pt will not keep bp cuff on or o2 monitor.
== END 2025-03-30 09:09 | disposition short-term general hospital (02) ==
PROVIDERS: Emergency Provider Student in an Organized Health Care Education/Training Program; PCP Nurse Practitioner Family
DX: N13.8 Other obstructive and reflux uropathy (principal)
CPT/HCPCS: 74177; 80053; 81001; 81025; 83605; 83690; 83735; 84100; 85025; 86140; 87086; 96361; 96374; 96375; 99285; J0696; J1171; J1885; J2270; J2405; J2765; J7030

== ENCOUNTER 2025-04-05 10:58 | Emergency (ER) | payer MEDICAID, SELFPAY ==
[2025-04-05 11:13] VITALS: BP 118/77; PULSE 79; RESP 16; TEMP 37.1; O2SAT 98; BMI 35.4
[2025-04-05 11:34] VITALS: BP 126/90; PULSE 80; O2SAT 100
--- NOTE | 2025-04-05 11:38 | CTR_ITS ---
PROCEDURE INFORMATION: Exam: CT Abdomen And Pelvis Without Contrast Exam date and time: 04/05/2025 12:12 PM Age: 34 years old Clinical indication: Other: Kidney pain; Additional info: Severe left kidney pain, recent stent TECHNIQUE: Imaging protocol: Computed tomography of the abdomen and pelvis without contrast. Sagittal and coronal reformatted images were also reviewed. Radiation optimization: All CT scans at this facility use at least one of these dose optimization techniques: automated exposure control; mA and/or kV adjustment per patient size (includes targeted exams where dose is matched to clinical indication); or iterative reconstruction. COMPARISON: CT abdomen pelvis w con* [id number] 03/30/2025 1:56 AM RADIATION DOSE METRICS: Total DLP (mGy-cm): 820.5 FINDINGS: Limitations: Evaluation of solid organs and vasculature is limited without intravenous contrast. This is standard protocol for evaluation of possible urolithiasis. Lungs: Visualized lungs are clear. Pleural spaces: No pleural effusion. Heart: Visualized portions of the heart are unremarkable. Liver: The liver is unremarkable. Gallbladder and biliary ducts: The gallbladder is unremarkable. No biliary ductal dilatation. Pancreas: The pancreas is unremarkable. No pancreatic ductal dilatation. Spleen: The spleen is unremarkable. Small splenule in the left upper quadrant. Adrenal glands: The right and left adrenal glands are unremarkable. Kidneys and ureters: Simple cyst in the right kidney is stable in size measuring 2.5 cm. Stable subcentimeter hypodense focus in the right kidney that is too small to characterize, however likely represents a small cyst. Indeterminate hyperdense focus in the right kidney measuring 8.1 mm, stable compared with prior noncontrast CT scan dated 10/05/2023 and consistent with a hemorrhagic/proteinaceous cyst (series 4, image 109). Indeterminate hyperdense focus in the left kidney measuring 8.5 mm (series 4, images 85 and 109). This was not definitely visualized on the prior noncontrast CT scan, however does corresponds to an indeterminate mildly hypodense focus compared to enhancing renal parenchyma on the most recent CT scan dated 03/30/2025. Nonobstructing stones in both right and left kidneys. The largest stone in the right kidney measures 6.2 mm (series 4, image 90). The largest stone in the left kidney measures 3.2 mm (series 4, image 113). Interval placement of a left double-J ureteral stent with the proximal coil in the left renal pelvis in the distal coil in the bladder. No hydroureteronephrosis. Previously demonstrated left proximal ureteral stone is no longer visualized. 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 No acute abnormality in the stomach, small bowel, or colon. Appendix: The patient has had a previous appendectomy. Intraperitoneal space: No free intraperitoneal air. No ascites. No abscess. Vasculature: No evidence for aortic aneurysm. Lymph nodes: No lymphadenopathy. Urinary bladder: Unremarkable as visualized. Reproductive: The uterus is unremarkable. Multiple subcentimeter follicles in both right and left ovaries. Bones/joints: Mild degenerative changes in the visualized spine. Soft tissues: Stable small fat-containing umbilical hernia. No evidence for strangulation. No acute abnormality in the extra-abdominal soft tissues. CT/CT kidney stone [id number] IMPRESSION: 1. Interval placement of a left double-J ureteral stent with the proximal coil in the left renal pelvis in the distal coil in the bladder. No hydroureteronephrosis. 2. Previously demonstrated left proximal ureteral stone is no longer visualized. 3. Bilateral nonobstructing renal stones. 4. Indeterminate hyperdense focus in the right kidney measuring 8.1 mm, stable compared with prior noncontrast CT scan dated 10/05/2023 and consistent with a hemorrhagic/proteinaceous cyst. 5. Indeterminate hyperdense focus in the left kidney measuring 8.5 mm. This was not definitely visualized on the prior noncontrast CT scan, however does corresponds to an indeterminate mildly hypodense focus compared to enhancing renal parenchyma on the most recent CT scan dated 03/30/2025. This may also represent a hemorrhagic/proteinaceous cysts, however recommend follow-up imaging to ensure stability. 6. Stable small fat-containing umbilical hernia. No evidence for strangulation. 7. Incidental/nonacute findings are listed in the report. COMMENTS: Consistent with the [employer]'s Incidental Findings Committee white paper (J Am Kathleen Radiol 2018): Any incidental renal lesion less than 1 cm or classified as too small to characterize, or any incidental cystic renal lesion characterized as simple-appearing, is likely benign. No follow-up imaging is recommended for these lesions per consensus recommendations based on imaging criteria.
[2025-04-05 11:40] LABS: Hematocrit 41.3 % (36-47); Hemoglobin 13.40 g/dL (11.27-16.99); Mean Corpuscular HGB Conc 32.4 g/dL (30-55); Mean Corpuscular Hemoglobin 29.0 pg (27-33); Mean Corpuscular Volume 89.4 fl (85-98); Nucleated Red Blood Cells % 0 %; Platelet Count 262 10^3/cmm (157-399); Red Blood Count 4.62 10^6/uL (3.85-5.65); White Blood Count 7.30 10^3/uL (3.29-11.43)
[2025-04-05 11:42] LABS: Glucose Urine UA Negative (Normal); Nitrate Urine Negative (Negative); Specific Gravity, Urine 1.016 (1.005-1.030)
--- NOTE | 2025-04-05 11:44 | ED_ITS ---
HPI - Abdominal Pain 2 General: Chief Complaint: Abdominal Pain Stated Complaint: L side pain Time Seen by Provider: 04/05/25 11:17 Source: patient Mode of arrival: ambulatory Limitations: no limitations History of Present Illness: Patient is a 34-year-old female who presents emergency department complaining of left flank pain for the past couple of days. She was transferred to [facility] in [place] last week due to obstructed stone with UTI and had stent placed in the left ureter, notes that pain had been much improved but has started to gradually creep up and states that she came in to be safe than sorry. She is noting nausea, no vomiting. No urinary symptoms at this time. Has not been taking anything for pain but has since finished her antibiotics. Her next urologic appointment is April 16. Pain is in the same location, primarily to the left CVA/flank region, no abdominal pain at this time. Her vitals are stable, she is nontoxic-appearing, rating her pain currently a 7/10. No other concerning symptoms to note. MD elicited complaint: flank pain Pertinent past history: kidney stones Onset (ago): day(s) Pain Consistency: constant Location: L flank Severity: similar to previous episodes Pain scale (0-10): 7 Quality: stabbing Context: recent surgery/procedure Associated Symptoms: Reports nausea; Denies bloating, change in stool character, chills, constipation, diarrhea, dysuria, fever(s), hematochezia, hematuria and vomiting Related Data Previous Rx's ?Medication ?Instructions ?Recorded cetirizine 10 mg tablet (Zyrtec) 10 mg PO DAILY PRN al jamilgy 01/16/25 symptoms #30 tabs fluticasone propionate 50 2 spray intranasal DAILY #16 grams 01/16/25 mcg/actuation nasal spray,suspension (Flonase Allergy Relief) olopatadine 0.7 % eye drops 1 drp ophthalmic (eye) ROSI LY #5 mL 01/16/25 (Pataday Once Daily Relief) hydrocodone 5 mg-acetaminophen 325 1 tab PO Q8H PRN pa in #15 tabs 04/05/25 mg tablet ondansetron HCl 4 mg tablet 4 mg PO Q8H #30 tabs 04/05 Allergies Allergy/AdvReac Type Severity Reaction Status Date / Time No Known Allergies Allergy Verified 01/16/25 10:09 Review of Systems 2 General: Reports: 10 or more systems reviewed and unremarkable except in HPI and below Const: Denies: fever(s), chills, change in appetite, change in weight or diaphoresis ENMT: Denies: throat pain or hoarseness Card: Denies: chest pain, palpitations or lightheadedness Resp: Denies: dyspnea, productive cough or wheezing GI: Reports: nausea; Denies: abdominal pain, vomiting, diarrhea, constipation, bloating, change in stool character or hematochezia : Reports: flank pain; Denies: difficulty voiding, dysuria, urinary frequency, urinary urgency or hematuria Musc: Denies: neck pain or back pain Skin/Breast: Denies: rash or new lesions Neuro: Denies: headache(s) or dizziness PFSH ED 2 PFSH: Medical History Hiatal hernia with gastroesophageal reflux BMI 50.0-59.9, adult Allergic rhinitis Surgical History No pertinent past surgical history Social History Smoking and tobacco/nicotine status: unknown if used tobacco/nicotine Second hand smoke exposure: No Alcohol intake: never Substance/Drug Use: never Physical Exam 2 Const: COMMON NORMALS: no acute distress, average body habitus, patient oriented x3, no limitations, healthy appearing, alert and well nourished G ENERAL APPEARANCE: cooperative and comfortable ORIENTATION/CONSCIOUSNESS: Yes awake OTHER: Nontoxic-appearing Neck/C-Spine: COMMON NORMALS: full ROM, supple and no meningeal signs Resp: COMMON NORMALS: normal respiratory effort, No retractions, No use of accessory muscles and clear to auscultation bilaterally AUSCULTATION: clear to auscultation bilaterally, no crackles, no rales, no rhonchi and no wheezes Cardio: COMMON NORMALS: regular rate, regular rhythm, No gallops present (Cardio), No clicks present (Cardio), No murmurs present (Cardio) and No rub (Cardio) RATE: regular rate RHYTHM: regular rhythm GI: COMMON NORMALS: Normal to inspection, nondistended, normoactive bowel sounds present, Soft to palpation, non-tender, No hepatosplenomegaly present and no masses AUSCULTATION: Yes normoactive bowel sounds PALPATION: Yes Soft to palpation, No Guarding due to palpation present (GI), No Rigid due to palpation and Yes No hepatosplenomegaly present RECTAL EXAM: deferred : BLADDER/KIDNEY EXAM: Yes CVA tenderness on the left Back/Pelvis: GENERAL BACK: Yes CVA tenderness Extremity: COMMON NORMALS: normal to inspection and full ROM Neuro: COMMON NORMALS: patient oriented x3, moves all extremities, no focal motor deficits and no sensory deficits noted SENSORIUM/ORIENTATION: Yes alert MENINGEAL SIGNS: Yes no meningeal signs Psych: COMMON NORMALS: mental status grossly normal, cooperative and speech normal SPEECH: Yes normal speech Skin: COMMON NORMALS: no rashes or lesions noted GENERAL SKIN EXAM: no rashes or lesions noted Course 2 Vital Signs: Vital signs: Vital Signs Temperature 98.7 F 04/05/25 11:13 Pulse Rate 60 04/05/25 12:23 Respiratory Rate 16 04/05/25 11:13 Blood Pressure 108/76 04/05/25 12:23 Pulse Oximetry 99 04/05/25 12:23 Oxygen Delivery Me thod Room Air 04/05/25 12:23 MDM - Abdominal Pain Medical Decision Making Patient presented for left flank pain, positive history of recent transfer to [facility] urology where she had stent placed due to infected and obstructed stone. Noted that prior to her presentation her symptoms had been improving, and that she was here as a precautionary purpose as this is how her symptoms started with her prior admission. Has still been making urine, no fevers or nausea/vomiting. Clinically does not appear ill at time of exam, afebrile and her vital stable. Tender to palpation left CVA region. IV established pain medicine administered as well as fluids and nausea meds, which have greatly improved her condition throughout the ED course. Labs are repeated, there is evidence of possible mild residual UTI which we will treat with 5 days of cefdinir twice a day. Kidney function normal, and CT abdomen pelvis demonstrating no hemorrhage, persistent signs of obstruction, new ureteral or nephrolithiasis, or any other concerning abnormalities that would require urgent transfer back to [facility]. Instead she is instructed to follow-up with urology as outpatient and return if she does develop fevers, pain returns or worsens, any persistent nausea/vomiting, or any other major concerns. Patient does agree with this plan at this time. Medication sent to pharmacy. Lab Data 04/05/25 11:20 04/05/25 11:20 Labs/Radiology: Radiology Impressions Abdomen/Pelvis CT 04/05/25 11:38 IMPRESSION: 1. Interval placement of a left double-J ureteral stent with the proximal coil in the left renal pelvis in the distal coil in the bladder. No hydroureteronephrosis. 2. Previously demonstrated left proximal ureteral stone is no longer visualized. 3. Bilateral nonobstructing renal stones. 4. Indeterminate hyperdense focus in the right kidney measuring 8.1 mm, stable compared with prior noncontrast CT scan dated 10/05/2023 and consistent with a hemorrhagic/proteinaceous cyst. 5. Indeterminate hyperdense focus in the left kidney measuring 8.5 mm. This was not definitely visualized on the prior noncontrast CT scan, however does corresponds to an indeterminate mildly hypodense focus compared to enhancing renal parenchyma on the most recent CT scan dated 03/30/2025. This may also represent a hemorrhagic/proteinaceous cysts, however recommend follow-up imaging to ensure stability. 6. Stable small fat-containing umbilical hernia. No evidence for strangulation. 7. Incidental/nonacute findings are listed in the report. COMMENTS: Consistent with the [employer]'s Incidental Findings Committee white paper (J Am Kathleen Radiol 2018): Any incidental renal lesion less than 1 cm or classified as too small to characterize, or any incidental cystic renal lesion characterized as simple-appearing, is likely benign. No follow-up imaging is recommended for these lesions per consensus recommendations based on imaging criteria. Laboratory Results WBC 7.30 10^3/uL (3.29-11.43) 04/05/25 11:20 RBC 4.62 10^6/uL (3.85-5.65) 04/05/25 11:20 Hgb 13.40 g/dL (11.27-16.99) 04/05/25 11:20 Hct 41.3 % (36-47) 04/05/25 11:20 MCV 89.4 fl (85-98) 04/05/25 11:20 MCH 29.0 pg (27-33) 04/05/25 11:20 MCHC 32.4 g/dL (30-55) 04/05/25 11:20 RDW 12.0 % (12.1-15.1) L 04/05/25 11:20 Plt Count 262 10^3/cmm (157-399) 04/05/25 11:20 MPV 12.6 fL (7.4-10.4) H 04/05/25 11:20 Neut % (Auto) 65.3 % 04/05/25 11:20 Lymph % (Auto) 27.8 % 04/05/25 11:20 [place] % (Auto) 5.8 % 04/05/25 11:20 Eos % (Auto) 0.5 % 04/05/25 11:20 Baso % (Auto) 0.3 % 04/05/25 11:20 Neut # (Auto) 4.77 10^3/uL (1.8-7.7) 04/05/25 11:20 Lymph # (Auto) 2.0 10^3/uL (0.8-4.8) 04/05/25 11:20 [place]entry # (Auto) 0.4 10^3/uL (0.2-0.9) 04/05/25 11:20 Eos # (Auto) 0.0 10^3/uL (0.0-0.8) 04/05/25 11:20 Baso # (Auto) 0.0 10^3/uL (0.0-0.1) 04/05/25 11:20 Nucleated RBC % (auto) 0 % 04/05/25 11:20 Nucleated RBCs # 0.0 /100WBC 04/05/25 11:20 Sodium 139 mmol/L (136-145) 04/05/25 11:20 Potassium 3.7 mmol/L (3.5-5.1) 04/05/25 11:20 Chloride 102 mmol/L (98-107) 04/05/25 11:20 Carbon Dioxide 26 mmol/L (22-29) 04/05/25 11:20 Anion Gap 14.7 (5-19) 04/05/25 11:20 BUN 13 mg/dL (6-20) 04/05/25 11:20 Creatinine 0.6 mg/dL (0.5-0.9) 04/05/25 11:20 GFR Calculation 115.1 mL/min (90-130) 04/05/25 11:20 Glucose 91 mg/dL (65-115) 04/05/25 11:20 Calculated Osmolality 288 mOsm/kg (285-295) 04/05/25 11:20 Calcium 9.4 mg/dL (8.5-10.5) 04/05/25 11:20 Total Bilirubin 0.3 mg/dL (0.15-1.2) 04/05/25 11:20 AST 10 U/L (0-32) 04/05/25 11:20 ALT 10 U/L (0-33) 04/05/25 11:20 Alkaline Phosphatase 115 U/L (35-105) H 04/05/25 11:20 Total Protein 7.4 g/dL (6.6-8.7) 04/05/25 11:20 Albumin 3.8 g/dL (3.5-5.2) 04/05/25 11:20 Globulin 3.6 g/dL (1.3-4.6) 04/05/25 11:20 Lipase 26 U/L (13-60) 04/05/25 11:20 HCG, Qual Negative (Negative) 04/05/25 11:20 Urine Color Yellow (Yellow) 04/05/25 11:24 Urine Appearance Clear (CLEAR) 04/05/25 11:24 Urine pH 6.5 (5-7) 04/05/25 11:24 Ur Specific [place] 1.016 (1.005-1.030) 04/05/25 11:24 Urine Protein 1+ (Negative) A 04/05/25 11:24 Urine Glucose (UA) Negative (Normal) 04/05/25 11:24 Urine Ketones Negative (Negative) 04/05/25 11:24 Urine Blood 3+ (Negative) A 04/05/25 11:24 Urine Nitrate Negative (Negative) 04/05/25 11:24 Urine Bilirubin Negative (Negative) 04/05/25 11:24 Urine Urobilinogen 1.0 mg/dL (Negative) 04/05/25 11:24 Ur Leukocyte Esterase 2+ (Negative) A 04/05/25 11:24 Urine RBC >100 /hpf (0-2) H 04/05/25 11:24 Urine WBC 11-20 /hpf (0-5) H 04/05/25 11:24 Ur Squamous Epith Cells 0-5 /hpf (0-5) 04/05/25 11:24 Amorphous Sediment Not Reportable 04/05/25 11:24 Urine Bacteria None seen /hpf (NONE) 04/05/25 11:24 Hyaline Casts 3.30 /lpf 04/05/25 11:24 All radiology interpretation(s) finalized by discharge Discharge Plan Discharge Patient Disposition: Home Clinical Impression: Colic, ureteral Condition: Stable Prescriptions: New hydrocodone-acetaminophen 5-325 mg tablet 1 tab PO Q8H PRN (Reason: pain) Qty: 15 0RF ondansetron HCl 4 mg tablet 4 mg PO Q8H Qty: 30 0RF No Action cetirizine [Zyrtec] 10 mg tablet 10 mg PO DAILY PRN (Reason: allergy symptoms) Qty: 30 0RF fluticasone propionate [Flonase Allergy Relief] 50 mcg/actuation spray,suspension 2 spray intranasal DAILY Qty: 16 0RF Rx Instructions: administer into each nostril Pataday Once Daily Relief 0.7 % drops 1 drp ophthalmic (eye) DAILY Qty: 5 0RF Discharge Orders: Discharge ED (Routine); Ordered 04/05/25 Ordered By: Simon Fuentes Referrals: Fatuma Bernard FNP [Primary Care Provider, Nurse Practitioner] Patient Instructions: Patient Portal & Renee Instructions Activity Restrictions/Additional Instructions: Ureteral Stent Discharge Instructions You are being discharged after treatment for left flank pain related to your ureteral stent. Your pain and nausea have improved with medication, and your CT scan shows the stent is in place with no urgent problems. Why you may have pain: Pain after a ureteral stent is common. The stent can irritate the lining of your urinary tract, cause spasms, or lead to urine backing up slightly, all of which can cause discomfort in your side, back, or lower belly. This pain can come and go and may get worse with movement or urination. Most people notice the pain is worst in the first few days after stent placement, but it can return or flare up even weeks later. What to do at home: - Take your prescribed pain medication (hydrocodone/acetaminophen 5 mg) only as needed and as directed. - You may also use [id number] pain relievers like ibuprofen if your doctor says it is safe for you. - Drink plenty of fluids unless told otherwise. - Use anti-nausea medication as prescribed if you feel sick to your stomach. - Call your urologist to schedule a follow-up appointment as soon as possible. Strict return precautions: Go to the emergency department or call your doctor right away if you have: - Fever over 101?F (38.3?C) or chills - Severe pain not controlled by your medication - Vomiting that prevents you from keeping fluids down - Blood in your urine that is heavy or does not improve - Trouble urinating or inability to urinate - Signs of infection (burning with urination, foul-smelling urine, or cloudy urine) - Any new or worsening symptoms that concern you Other important information: Stent pain is usually not dangerous, but it can affect your daily activities. Most people find that symptoms improve over time or after the stent is removed. If your pain becomes hard to manage or you have any questions, contact your urologist. Follow-up: It is important to see your urologist soon to discuss your symptoms and plan for stent removal or further care. If you have any questions or concerns, do not hesitate to call your healthcare provider. Print Language: Cypriot Coding Level of Care Code ED Consular Officer for Svetlana Alvarado
[2025-04-05 11:45] LABS: Add Urine Microscopic? YES
[2025-04-05] MEDS: ondansetron 2 mg/ML SDV 2 mL 4 MG IVP (11:47)
[2025-04-05] MEDS: HYDROmorphone 0.5 MG/0.5 ML INJ IVP (11:48)
--- OUTSIDE RECORDS SUMMARY | 2025-04-05 11:50 | XMS_ITS | Encounter Summary ---
Author Organization [facility] Address [address] [place] [address] Care Team Providers Care Volunteer Assistant Name Role Phone Unavailable Primary Care Provider Unavailabl e Encounter Details Date Type Department Care Team (Latest Contact Info) Description 11/25/1998 Outpatient Historical [facility] Ear, Nose and Throat 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
--- OUTSIDE RECORDS SUMMARY | 2025-04-05 11:50 | XMS_ITS | Encounter Summary ---
Author Organization [facility] Address [address] [place] [address] Care Team Providers Care Angledozer Operator Name Role Phone Unavailable Primary Care Provider Unavailabl e Encounter Details Date Type Department Care Team (Late st Contact Info) Description 11/25/1998 Outpatient Historical [facility] Ear, Nose and Throat 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
--- OUTSIDE RECORDS SUMMARY | 2025-04-05 11:50 | XMS_ITS | Encounter Summary ---
Author Organization [facility] Address [address] [place] [address] Care Team Providers Care Market Development Executive Name Role Phone Unavailable Primary Care Provider Unavailabl e Encounter Details Date Type Department Care Team (Latest Contact Info) Description 01/24/1999 Outpatient Historical [facility] Ear, Nose and Throat 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
--- OUTSIDE RECORDS SUMMARY | 2025-04-05 11:50 | XMS_ITS | Clinical Summary ---
Author Organization [facility] Address [address] 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
--- OUTSIDE RECORDS SUMMARY | 2025-04-05 11:50 | XMS_ITS | Clinical Summary ---
Author Organization [facility] Address [address] [facility] [address] [place] [address] Phone Care Team Providers Care Housekeeping Assistant Name Role Phone Unavailable Primary Care Provider Unavailabl e Allergies Active Allergy Reactions Criticality Noted Date Comments Metoclopramide Hcl Anxiety Low 05/19/2024 Medications ondansetron (ZOFRAN) 4 mg/5 mL Solution Take by mouth every 8 hours as needed for Nausea. 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 Gender Identity Not on file Sexual Orientation Not on file Last Filed Vital Signs Vital Sign Reading Time Taken Comments Blood Pressure 115/72 05/19/2024 2:45 PM DEFENSE TRAVEL ADMINISTRATOR Pulse 58 05/19/2024 2:45 PM DEFENSE TRAVEL ADMINISTRATOR Temperature 36.2 C (97.1 F) 05/19/2024 12:38 PM DEFENSE TRAVEL ADMINISTRATOR Respiratory Rate 18 05/19/2024 2:45 PM DEFENSE TRAVEL ADMINISTRATOR Oxygen Saturation 100% 05/19/2024 2:45 PM DEFENSE TRAVEL ADMINISTRATOR Inhaled Oxygen Concentration - - Weight 119.3 kg (263 lb) 05/19/2024 12:38 PM DEFENSE TRAVEL ADMINISTRATOR Height 160 cm (5' 3 ) 05/19/2024 12:38 PM DEFENSE TRAVEL ADMINISTRATOR Body Mass Index 46.59 05/19/2024 12:38 PM DEFENSE TRAVEL ADMINISTRATOR Plan of Treatment Health Maintenance Due Date Last Done Comments HEPATITIS B VACCINES (1 of 3 - 19+ 3-dose series) 07/20/2010 HPV/Cotest (21-29) 07/20/2012 DTAP/TDAP/TD VACCINES (3 - Tdap) 02/05/2016 02/05/20 06, 12/07/2002 HPV VACCINES (1 - 3-dose SCDM series) 07/20/2018 CERVICAL CANCER SCREENING 07/20/2021 HPV/Cotest (30-65) 07/20/2021 PAP SMEAR 07/20/2021 INFLUENZA VACCINE (#1) 2024 04/01/1997, 1996 Insurance [facility] [id number]
--- OUTSIDE RECORDS SUMMARY | 2025-04-05 11:50 | XMS_ITS | Encounter Summary ---
Author Organization [facility] Address [address] [place] [address] Care Team Providers Care Carpenter Name Role Phone Unavailable Primary Care Provider Unavailabl e Encounter Details Date Type Department Care Team (Latest Contact Info) Description 02/02/1999 Outpatient Historical [facility] Head and Neck Surgery-[address] [place] [address] [place] [id number] [address] [place], [place] [id number] Other and unspecified chronic nonsuppurative otitis media (Primary Dx) Social History Tobacco Use Types Packs/Day Years Used Date Smoking Tobacco: Never Assessed Comments Unknown Sex and Gender Information Value Date Recorded Sex Assigned at Not on file 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
--- OUTSIDE RECORDS SUMMARY | 2025-04-05 11:50 | XMS_ITS | Encounter Summary ---
Author Organization [facility] Address [address] [place] [address] Care Team Providers Care Environmental Sciences Professor Name Role Phone Unavailable Primary Care Provider Unavailabl e Encounter Details Date Type Department Care Team (Latest Contact Info) Description 02/02/1999 Outpatient Historical [facility] Ear, Nose and Throat [address] [place] 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
[2025-04-05 11:52] VITALS: BP 104/67; PULSE 66; O2SAT 97
[2025-04-05 11:56] LABS: HCG, Serum Qual Negative (Negative)
[2025-04-05 12:01] LABS: Alanine Aminotransferase 10 U/L (0-33); Albumin Level 3.8 g/dL (3.5-5.2); Alkaline Phosphatase 115 U/L (35-105); Anion Gap 14.7 (5-19); Aspartate Amino Transferase 10 U/L (0-32); Blood Urea Nitrogen 13 mg/dL (6-20); Calcium 9.4 mg/dL (8.5-10.5); Carbon Dioxide 26 mmol/L (22-29); Chloride 102 mmol/L (98-107); Globulin 3.6 g/dL (1.3-4.6); Glucose 91 mg/dL (65-115); Lipase 26 U/L (13-60); Osmolality Calculated 288 mOsm/kg (285-295); Potassium 3.7 mmol/L (3.5-5.1); Sodium 139 mmol/L (136-145); Total Protein 7.4 g/dL (6.6-8.7)
[2025-04-05 12:23] VITALS: BP 108/76; PULSE 60; O2SAT 99
[2025-04-05 13:31] VITALS: BP 106/67; PULSE 62; O2SAT 98
== END 2025-04-05 13:32 | disposition home or self-care (01) ==
PROVIDERS: Emergency Medicine; Emergency Provider Physician Assistant; PCP Nurse Practitioner Family
DX: N23 Unspecified renal colic (principal)
CPT/HCPCS: 74176; 80053; 81001; 83690; 84703; 85025; 87086; 96361; 96374; 96375; 99285; J1171; J2405; J7030

== ENCOUNTER 2025-04-27 09:18 | Outpatient (CLI) | payer MEDICAID, SELFPAY ==
--- NOTE | 2025-04-27 09:26 | XRR_ITS ---
PROCEDURE INFORMATION: Exam: XR Lumbosacral Spine Exam date and time: 04/27/2025 9:36 AM Age: 34 years old Clinical indication: Dorslagia and low back pain; Rib pain that start in upper back & radiates into lower x few weeks. ; Additional info: Dorsalgia/back pain TECHNIQUE: Imaging protocol: Radiologic exam of the lumbosacral spine. Views: 4 or 5 views. COMPARISON: CT kidney stone [id number] 04/05/2025 12:12 PM FINDINGS: Bones/joints: Normal. No acute fracture. Normal alignment. Normal bilateral oblique views. Soft tissues: Unremarkable. XR/XR lumbar spine min 4V [id number] IMPRESSION: No acute findings.
--- NOTE | 2025-04-27 09:30 | XRR_ITS ---
PROCEDURE INFORMATION: Exam: XR Thoracic Spine Exam date and time: 04/27/2025 9:36 AM Age: 34 years old Clinical indication: Pain in thoracic spine; Rib pain that start in upper back & radiates into lower x few weeks. ; Additional info: Back pain TECHNIQUE: Imaging protocol: Radiologic exam of the thoracic spine. Views: 3 views. COMPARISON: CT kidney stone [id number] 04/05/2025 12:12 PM FINDINGS: Bones/joints: Degenerative changes present within the spine. Soft tissues: Unremarkable. XR/XR thoracic spine 2V [id number] IMPRESSION: Multilevel degenerative disc disease.
== END 2025-04-27 09:19 | disposition home or self-care (01) ==
PROVIDERS: PCP Nurse Practitioner Family; Visit Provider Nurse Practitioner Family
DX: M54.9 Dorsalgia, unspecified (principal); M51.34 Other intervertebral disc degeneration, thoracic region
CPT/HCPCS: 72070; 72110